=== PATIENT | female | born 1990 | race Caucasian/White ===

== ENCOUNTER 2022-01-26 10:40 | Emergency (ER) | payer OTHER, SELFPAY ==
[2022-01-26 11:05] VITALS: BP 128/79; PULSE 100; PULSE 106; RESP 16; TEMP 37.3; O2SAT 96; O2SAT 98; BMI 21.9
--- NOTE | 2022-01-26 11:10 | ED.OVERDOSE ---
HPI - Overdose General Chief Complaint: Overdose Stated Complaint: OD,NARCAN GIVEN W/GOOD RESULT PER EMS Time Seen by Provider: 01/26/22 11:00 Source: EMS Mode of arrival: EMS Limitations: no limitations History of Present Illness HPI Narrative: 31-year-old female who endorses heroin and crack use presents for a heroin overdose. The patient was found unresponsive outside on the sidewalk with a needle in her arm, patient got to of Narcan by EMS. Patient endorses using 2 bags of heroin a day crack cocaine. States her right hip hurts, and she has hip necrosis that she was diagnosed with last year but she has not seen orthopedics yet. States her whole body hurts. Patient states she would like to go to detox. Patient denies suicidal ideation, homicidal ideation, or hallucinations. Patient states she was doing heroin and then woke up ear. Denies chest pain, shortness of breath, fevers, nausea, vomiting, diarrhea, abdominal pain, dizziness, lightheadedness. Related Data Allergies Allergy/AdvReac Type Severity Reaction Status Date / Time Penicillins [PCN] Allergy Mild HIVES Verified 01/26/22 11:04 amoxicillin [AMOXICILLIN] Allergy Unknown HIVES Verified 01/26/22 11:04 bee pollen [BEE STINGS] Allergy Unknown SWELLING Verified 01/26/22 11:04 bismuth subsalicylate Allergy Unknown VOMITTING Verified 01/26/22 11:04 [From PEPTO-BISMOL] Review of Systems Constitutional: Constitutional: Reports body ache(s), Denies chills, Denies fatigue, Denies fever(s), Denies malaise and Denies weakness Eyes: Eyes: Denies diplopia ENT: Denies otalgia, Denies neck pain and Denies sore throat Cardiovascular: Cardiovascular: Denies chest pain, Denies syncope, Denies leg edema, Denies lightheadedness, Reports Loss of Consciousness, Denies palpitations and Denies dyspnea Respiratory: Respiratory: Denies chest congestion, Denies cough and Denies dyspnea Gastrointestinal: Gastrointestinal: Denies abdominal pain, Denies hematochezia, Denies constipation, Denies diarrhea, Denies nausea and Denies vomiting Genitourinary: Genitourinary: Reports no additional female genitourinary complaints Musculoskeletal: Musculoskeletal: Reports myalgias and Denies neck pain Neurologic: Denies confusion, Denies syncope and Denies weakness Psychiatric: Psychiatric: Denies anxiety, Denies confusion, Denies depression, Denies auditory hallucinations, Denies visual hallucinations, Denies hallucinations, Denies homicidal ideation and Denies suicidal ideation Endocrine: Endocrine: Denies fatigue and Denies palpitations [facility] Social History Social History Advance Directives: No Advance Directives Information Provided: Yes Physical Exam Vital Signs: Vital Signs: Last Vital Signs Temp 99.2 F 01/26/22 11:05 Pulse 106 H 01/26/22 11:05 Resp 16 01/26/22 11:05 BP 128/79 01/26/22 11:05 Pulse Ox 96 01/26/22 11:05 O2 Del Method 01/26/22 11:05 BMI result Body Mass Index 21.9 Const: General: No confusion Nutritional Appearance: well nourished Orientation/consciousness: No confusion Limitations: no limitations HEENT: Head: Yes normal to inspection, Yes No palpable skull fracture present, Yes normocephalic and Yes atraumatic Ears: hearing grossly normal bilaterally General nose exam: Normal external nose present Face and sinus: Yes normal facial exam Mouth: Normal oral and palatal mucosa present Throat: Yes posterior oropharynx normal Eyes: Conjunctivae: conjunctivae normal Pupils: Equal, round and reactive pupils present EOM: EOMs intact bilaterally Neck: Neck: Yes full ROM, Yes no lymphadenopathy and Yes supple Resp: Effort & Inspection: normal respiratory effort and able to speak in complete sentences Auscultation: clear to auscultation bilaterally, no crackles, no rales, no rhonchi and no wheezes Cardio: Rate: regular rate Rhythm: regular rhythm Heart sounds: S1 normal heart sound present and S2 normal heart sound present GI: Inspection: Yes normal to inspection Palpation (GI): Soft to palpation, nontender, no guarding and not rigid Percussion: Yes normal to percussion Auscultation: normal bowel sounds Skin: General skin exam: no rashes or lesions noted Neuro: General: No confusion Cranial nerves: Yes Equal, round and reactive pupils present Extrem: General: Yes normal to inspection and Yes full ROM Psych: Appearance: disheveled Speech and movement: Slurred speech present Affect: Depressed mood present and Irritable affect present Attitude: cooperative Thought process: Normal thought process present Thought content: suicidality, no homicidality, no hallucinations and No Depressive thoughts present Course Course Course Narrative: 31-year-old female presents for overdose on heroin, patient was found outside unresponsive, was given Narcan and revived. Heart rate 106, vitals otherwise stable. Patient does endorse body aches. States her right it hip hurts but refuses x-ray because patient wants to go to rehab, will get labs, urine drug screen, COVID, put consult in to care team for SUDE Reevaluation(s) Reevaluation #1: Go, care team, tells me patient is interested in detox, he will contact the facility and see if laboratory testing is needed prior to admission to detox facility Reevaluation #2: Go has found her placement at [facility] in [place], [place] Discharge Plan Discharge Clinical Impression: Drug overdose, Opioid abuse Patient Disposition: Xfer Inpatient Rehab Fac Transfer Details: [place], [place] Interventions: ED Discharge Assessment Last Done: 01/26/22 15:23 Discharge Date/Time: 01/26/22 15:24
--- NOTE | 2022-01-26 11:55 | PC.NURSE ---
Go from [facility] speaking to pt at this time. Pt interested in detox, Go to inquire with [facility]. Pt reports using heroin and crack daily. Denies ETOH use
--- NOTE | 2022-01-26 11:56 | PC.NURSE ---
Refusing blood work at this time, Go will inquire if [facility] will accept without
--- NOTE | 2022-01-26 12:33 | MHC.RECOVSUP ---
Addendum entered by Go Palacio, [facility] 01/26/22 14:57: Jason reports they do not have staffing to accommodate this patient. Richard reports they cannot take patient until tomorrow. Patient accepted at [facility]. Transportation via Lyft. Original Note: Recovery Support note: Patient is a 31 year old Kiswahili speaking female who presented to [facility] after an accidental overdose. This customs entry writer met with patient to discuss substance use and treatment options. Patient reports this is her 6th overdose and that she uses heroin several days a week, about 4 bags at a time. Patient reports using $50 of crack cocaine daily. Patient denies alcohol use. Patient is not on Suboxone or methadone. Patient denies SI/HI/AH/VH. Patient reports interest in going to detox. Patient states she has been before and has found it to be helpful. This customs entry writer will assist patient in referring to ATS facilities.
--- NOTE | 2022-01-26 14:09 | PC.NURSE ---
Pt continues to refuse vitals and labs at this time, very dismissive with this RN
[2022-01-26] MEDS: Lidocaine 4 % Patch ADH..PATCH 1 PATCH TRANSDERMA (14:57)
== END 2022-01-26 15:24 ==
PROVIDERS: Emergency Provider Emergency Medicine Emergency Medical Services
DX: T40.1X1A Poisoning by heroin, accidental (unintentional), initial encounter (principal); T40.5X1A Poisoning by cocaine, accidental (unintentional), initial encounter; R40.4 Transient alteration of awareness; Y92.480 Sidewalk as the place of occurrence of the external cause; F11.10 Opioid abuse, uncomplicated
CPT/HCPCS: 99282; 99285

== ENCOUNTER 2023-04-05 06:57 | Emergency (ER) | payer OTHER, SELFPAY ==
[2023-04-05] VITALS (7 sets, daily range): BP systolic 90–125; BP diastolic 51–85; PULSE 64–91; RESP 16–19; TEMP 36.4–36.9; O2SAT 98–100; BMI 25.0
--- NOTE | ~2023-04-05 | XR_ITS ---
EXAMINATION: XR HIP, RIGHT CLINICAL INFORMATION: Right hip pain with necrosis of the hip history COMPARISON: None available. TECHNIQUE: Two views of the right hip. FINDINGS: There is destruction and marked sclerosis of the right femoral head. There is marked sclerosis of the right acetabulum and adjacent lower right ilium. There is obliteration of the right hip joint space. A significant portion of the right ilium is obscured by overlying bowel contents. The sacroiliac joints appear within normal limits. The left hip and pubic symphysis are within normal limits. 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 MRI scan could be obtained for further evaluation, if not already performed.
--- NOTE | 2023-04-05 08:12 | ED.GENADULT ---
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 Patient is lying on her right side she is moving the hip normally she does have a cane at the site of the bed. She states she has this osteonecrosis but never had surgery for the hip states she is followed at [facility] she denies any falls or injuries she is requesting breakfast. Related Data Allergies Allergy/AdvReac Type Severity Reaction Status Date / Time Penicillins [PCN] Allergy Mild HIVES Verified 01/26/22 11:04 amoxicillin [AMOXICILLIN] Allergy Unknown HIVES Verified 01/26/22 11:04 bee pollen [BEE STINGS] Allergy Unknown SWELLING Verified 01/26/22 11:04 bismuth subsalicylate Allergy Unknown VOMITTING Verified 01/26/22 11:04 [From PEPTO-BISMOL] Review of Systems Review of Systems: Review of systems: General: Patient denies any fever chills recent illness or falls Musculoskeletal: Denies back pain or body aches or other injuries HEENT: denies headache, runny nose, ear pain Respiratory: denies shortness of breath, cough Cardiovascular: no chest pain or palpitations : denies dysuria, frequency Abdomen: no nausea vomiting denies abdominal pain Extremities: no swelling, right hip pain Skin: no diaphoresis Yes all other systems are reviewed and are negative PMFSH Social History Social History Alcohol intake: never Smoked in Last 30 Days: Yes Use of substances other than those prescribed or required for medical reasons: Yes Substance Use Type: Crack/Cocaine and Opiates Substance Use Frequency: Daily Last Used Substance: Days (ago) Any prior treatment program specific to substance use: Yes Advance Directives: No Advance Directives Information Provided: No Physical Exam ED Vital Signs: Vital Signs - 24 hr 04/05/23 07:09 04/05/23 09:39 Temperature 97.8 F 98.5 F Pulse Rate 91 76 Respiratory Rate 18 16 Blood Pressure 107/70 117/64 Pulse Oximetry 100 98 Oxygen Delivery Method Room Air Room Air BMI result Body Mass Index 25.0 General: Well-appearing well-nourished in no signs of distress HEENT: Normocephalic atraumatic Neck: No signs of JVD, no masses no tenderness or lymphadenopathy Cardiovascular: Regular rate and rhythm Respiratory: Clear to auscultation bilaterally Abdomen: Soft nontender no masses Extremities: Normal pedal pulses no signs of edema pain out of proportion to exam jumping and moving very quickly Skin: Dry warm no rashes Back: No tenderness full ROM Course Course Course Narrative: Xr is concerning for arthritis of the hip. She appears to be unreliable and has failed to follow up in the past. I spoke with Orthopedics Dr. Mayer about seeing the patient. The PA for orthopedics were also consulted. Matias Lewis from Orthopedics consulted and states the patient will need outpatient follow up. I did advocate for the patient with Orthopedics as she has been lost to follow up in the past and likely would benefit from close follow up if not admission. [id number] Patient is medically cleared at this time I will have detox evaluation. Medications Administered Discontinued Medications Generic Name Dose Route Start Last Admin Trade Name Freq PRN Reason Stop Dose Admin Acetaminophen 650 mg 04/05/23 08:43 04/05/23 09:07 Acetaminophen 325 Mg Tablet PO 04/05/23 08:44 650 mg ONCE ONE Administration Ketorolac Tromethamine 15 mg 04/05/23 08:43 04/05/23 09:08 Ketorolac Tromethamine 30 Mg/Ml Vial IM 04/05/23 08:44 15 mg ONCE ONE Administration Medical Decision Making Medical Decision Making [facility] Narrative: Concern for hip pain strain necrosis I will send for XR given tylenol and toradol Differential Diagnosis Differential Diagnoses: The differential diagnosis associated with the presentation includes If strain drug-seeking homelessness osteonecrosis of the hip hip fracture Independent Interpretation I performed an independent interpretation of an: Plain X-Ray Interpretation: osteoarthritis of the hip Radiology Impression Discussion of test interpretation with radiology: I have reviewed the radiologist's reading. External Record Review External record reviewed: Inpatient record 1 previous visit to the ED for overdose over a year ago. Discharge Plan Discharge Clinical Impression: Acute pain of right hip, Osteoarthritis Patient Disposition: Home, Self-Care Instructions: Arthralgia (ED), Hip Pain (ED) Additional Instructions: You were seen for hip pain. You had a XR which Please call to follow up with Orthopedics. Referrals: Frantz Rader MD [Physician] - (Please call to follow up about your hip pain.)
[2023-04-05] MEDS: Acetaminophen 325 MG TABLET 650 MG PO (09:07)
[2023-04-05] MEDS: Ketorolac Tromethamine 30 MG/ML VIAL 15 MG IM (09:08)
[2023-04-05] MEDS: Haloperidol Lactate 5 MG/ML VIAL IM (11:00)
[2023-04-05] MEDS: HYDROmorphone HCl 2 MG TABLET 1 MG PO (11:00)
--- NOTE | 2023-04-05 11:42 | MHC.EDTECH ---
Patient given a urine cup to provide urine sample, and she is aware this is needed but states she doesn't have to go at this time. CUCA Venegas aware.
--- NOTE | 2023-04-05 12:06 | PC.NURSE ---
pt visually diaphoretic on her forehead, this RN attempted to complete COWS assessment, pt refused to answer any questions, take vitals or provide a urine sample. just leave me alone, i'm not dong that . pt reports last drug use was yesterday.
--- NOTE | 2023-04-05 14:45 | PC.NURSE ---
md shayy baron notified COWS 8- no interventions ordered at this time.vss
--- NOTE | 2023-04-05 15:14 | PC.NURSE ---
per pt req contacted reading recovery teacher- nameprovided by adrianne magana pt req info about detox program.
--- NOTE | 2023-04-05 16:08 | MHC.RECOVRN ---
This administrative underwriter met with patient, patient requesting detox bed. Patient had reported MTD use, patient visibly diaphoretic, COWS 8, MTD has been ordered for withdrawal. This administrative underwriter reviewed with patient, detox bedsearch exhausted, no female detox beds [facility]. [facility] do not accept patients insurance. This administrative underwriter reviewed MTD dose, to follow up from the community with MTD maintenance and [facility] [place]. Patient states I'm going to kill myself . This administrative underwriter let ED RN and Provider know patients status.
--- NOTE | 2023-04-05 16:10 | PC.NURSE ---
attempt to admin methadone- pt talking w care team and reported si- rn is working on securing belongings/changeover behav health clothes/safety checks initiating. pt on commode to give urine spec
[2023-04-05] MEDS: methADONE HCl 20 MG/2 ML ORAL.CONC 30 MG PO (16:37)
--- NOTE | 2023-04-05 16:47 | PC.NURSE ---
pt fully clothed in behavoral outfit. cords out of room. belongings secured by tech. charge fariha aware limitation to movement r/t right hip issues so not pod able. +CMS. talking. tired but conversational. si no plan though says she is not fully sure so pt is elevated to moderate from low risk by rn decision. 1:[address] see [place]ot. provider notified
[2023-04-05 16:51] LABS: Appearance Urine Clear; Color Urine Dark Yellow; Glucose Urine UA Negative (Negative); Leukocyte Esterase Urine Trace (Negative); Nitrite Urine Negative (Negative); UMIC TRIGGER UACC YES; Urine Blood Negative (Negative); Urine Ketones Trace mg/dL (Negative); Urine Protein Negative (Neg-Trace)
[2023-04-05 16:52] LABS: Amphetamine Screen Urine Not Detected (Not Detect); Barbiturates, Urine Not Detected (Not Detect); Benzodiazepines Screen Urine Not Detected (Not Detect); Cannabinoid Screen Urine Not Detected (Not Detect); Cocaine Screen Urine POSITIVE (Not Detect); Fentanyl, urine POSITIVE (Not Detect); Opiate Screen Urine POSITIVE (Not Detect); Phencyclidine Screen Urine Not Detected (Not Detect)
[2023-04-05 16:54] LABS: Bacteria Urine None Seen (None Seen); Hyaline Casts Urine 0-2 /LPF (0-2); RBC Urine 0-2 /HPF (0-2); Squamous Epithelial Cell Urine 0-2 /HPF (0-2); WBC Urine 0-5 /HPF (0-5)
--- NOTE | 2023-04-05 19:32 | PC.NURSE ---
resting in bed sleeping with no distress- pt wishes to remain sleeping- 1:1 with pt. safety checks continue. +[facility].
--- NOTE | 2023-04-05 21:30 | PC.NURSE ---
This movie writer assumed care of this Pt at 2100. Pt appears to be sleeping at this time, awakens with verbal command, reports chronic right hip pain. States I still feel the same mentally, I'm homeless, I can't walk , reports SI with plan to jump in front of car. 1:1 sitter at bedside. VSS.
[2023-04-06 01:09] VITALS: BP 110/65; PULSE 76; RESP 14; O2SAT 96
--- NOTE | 2023-04-06 06:16 | PC.NURSE ---
Pt appears to be sleeping at this time. Awakens with verbal command. Sitter at bedside.
--- NOTE | 2023-04-06 07:25 | ECG_ITS ---
Test Reason : MEDICAL CLEARANCE Blood Pressure : / mmHG Vent. Rate : 080 BPM Atrial Rate : 080 BPM P-R Int : 162 ms QRS Dur : 088 ms QT Int : 400 ms P-R-T Axes : 068 095 020 degrees QTc Int : 461 ms Normal sinus rhythm Rightward axis T wave abnormality, consider anterior ischemia Prolonged QT Abnormal ECG No previous ECGs available Referred By: Buffy Keyes Electronically Signed By:ZARINA ZHENG
[2023-04-06 09:57] LABS: Basophils Absolute Auto 0.1 X10*3/uL (0.0-0.2); Basophils Percent Auto 1.5 % (0-2); Eosinophils Absolute Auto 0.5 X10*3/uL (0.0-0.4); Eosinophils Percent Auto 11.6 % (0-4); Hematocrit 42.8 % (37.0-47.0); Hemoglobin 13.9 g/dl (12.0-16.0); Imm Gran Abs Auto 0.01 X10*3/uL (0.00-0.03); Imm Gran Pct Auto 0.2 % (0.0-0.4); Lymphocytes Absolute Auto 2.3 X10*3/uL (1.2-4.9); Lymphocytes Percent Auto 48.4 % (20-40); MANUAL DIFF FLAG SCAN; Mean Corpuscular HGB Conc 32.5 g/dl (31.0-35.0); Mean Corpuscular Hemoglobin 26.8 pg (27.0-33.0); Mean Corpuscular Volume 82.5 fL (80.0-98.0); Mean Platelet Volume 10.4 fL (9.4-12.3); Monocytes Absolute Auto 0.5 X10*3/uL (0.1-1.2); Monocytes Percent Auto 11.1 % (2-11); Neutrophils Absolute Auto 1.3 x10*3/uL (2.0-8.3); Neutrophils Percent Auto 27.2 % (45-73); Platelet Count 220 X10*3/uL (160-400); Red Blood Count 5.19 X10*6/uL (4.20-5.50); Red Cell Distribution Width 14.6 % (11.0-16.0); SCAN SMEAR FLAG 1; White Blood Count 4.7 X10*3/uL (4.8-10.8)
--- NOTE | 2023-04-06 10:02 | PC.NURSE ---
assumed care of pt at 0700. pt resting quietly on stretcher in no apparent distress. pt provided with breakfast, hardly ate. pt reporting 8/10 R hip pain, sts unable to ambulate. not pod appropriate. commode at bedside. pt endorses SI, 1:1 sitter for pt safety. when care team went to speak with pt, pt reported her jaw got stuck and she was unable to speak. pt then yawned with this RN and CUCA Downs went to check in on pt. pt able to move jaw appropriately. all pt needs met annelise. call zelaya within pt reach.
[2023-04-06 10:06] LABS: Anion Gap 11 (12-20); Blood Urea Nitrogen 11 mg/dL (9-16); Calcium 9.6 mg/dL (8.4-10.2); Carbon Dioxide 33 mmol/L (22-29); Chloride 102 mmol/L (96-108); Creatinine Clr Calc Pharmacy 111.2; Estimated Glomerular Filt Rate > 60; Glucose Random 80 mg/dL (60-115); Potassium 3.4 mmol/L (3.3-5.1); Sodium 143 mmol/L (135-145)
[2023-04-06 10:08] LABS: Acetaminophen LAB < 17 mcg/mL (<30); Ethanol < 10 mg/dL; Salicylate < 5.0 mg/dL (15-30)
[2023-04-06 10:22] LABS: SLIDE REVIEW VERIFIED
[2023-04-06 10:37] VITALS: BP 114/67; PULSE 89; RESP 16; TEMP 37; O2SAT 98
[2023-04-06 11:19] VITALS: PULSE 88
--- NOTE | 2023-04-06 11:49 | PHA.MEDREC ---
Pharmacy Consult ? Medication Reconciliation Pharmacy has completed the medication reconciliation.
== END 2023-04-06 12:35 | disposition home or self-care (01) ==
PROVIDERS: Physician Assistant; Emergency Provider Student in an Organized Health Care Education/Training Program
DX: M16.11 Unilateral primary osteoarthritis, right hip (principal); M25.551 Pain in right hip; R94.31 Abnormal electrocardiogram [ECG] [EKG]; Z79.899 Other long term (current) drug therapy
CPT/HCPCS: 36415; 73502; 80048; 80143; 80179; 80307; 81001; 85025; 93005; 96372; 99285; J1885; S9485

== ENCOUNTER 2023-04-06 13:13 | Emergency (ER) | payer OTHER, SELFPAY ==
[2023-04-06 13:17] VITALS: BP 130/89; PULSE 93; RESP 18; TEMP 36.3; O2SAT 97; BMI 20.1
--- NOTE | 2023-04-06 13:31 | ED_ITS ---
HPI - General Adult General Chief complaint: ETOH/Substance Use Stated complaint: detox Time Seen by Provider: 04/06/23 13:25 Source: patient Mode of arrival: ambulatory Limitations: no limitations History of Present Illness HPI narrative: This is a 32-year-old female who was just discharged from our facility presenting requesting a 1 time dose of methadone Prior to going to [facility] [place]. Patient was just cleared by the care team. Not suicidal or homicidal. Denies visual, auditory and tactile hallucinations. Patient denies medical complaints at this time. Nursing stated patient was dislocating her jaw on purpose patient denies this i did not whitness this. Related Data Home Medications Medication Instructions Recorded Confirmed No Known Home Meds 04/06/23 04/06/23 Allergies Allergy/AdvReac Type Severity Reaction Status Date / Time Penicillins [PCN] Allergy Mild HIVES Verified 01/26/22 11:04 amoxicillin [AMOXICILLIN] Allergy Unknown HIVES Verified 01/26/22 11:04 bee pollen [BEE STINGS] Allergy Unknown SWELLING Verified 01/26/22 11:04 bismuth subsalicylate Allergy Unknown VOMITTING Verified 01/26/22 11:04 [From PEPTO-BISMOL] Review of Systems Review of Systems: Constitutional : No Fever, No Chills ENT/Mouth : No sore throat, No Rhinorrhea Eyes: No Eye Pain, No Swelling, No Redness Cardiovascular : No Chest Pain, No SOB Respiratory : No Cough, No Sputum Gastrointestinal : No Nausea, No Vomiting, No Diarrhea, No abdominal Pain Genitourinary : No Dysuria, No Hematuria Musculoskeletal : No joint pain, No Myalgias, No Joint Swelling Skin : No Skin Lesions, No rash Neuro : No Weakness, No Numbness Psych : No Anxiety, No Depression, No SI/HI/AH/VH Heme/Lymph: No Bruising, No Bleeding Endocrine : No Polyuria, No Polydipsia All other systems reviewed and are negative Yes all other systems are reviewed and are negative [facility] Past Medical History Attestation statement: The following information was validated with the patient. Source: old records reviewed and nursing notes reviewed Social History Social History Alcohol intake: never Substance Use Type: Crack/Cocaine and Opiates Physical Exam ED Vital Signs: Vital Signs - 24 hr 04/06/23 13:17 Temperature 97.3 F Pulse Rate 93 Respiratory Rate 18 Blood Pressure 130/89 Pulse Oximetry 97 Oxygen Delivery Method Room Air BMI result Body Mass Index 20.1 vss Appearance: Alert.? Oriented X3.? No acute distress.? Head: Normocephalic, atraumatic, no step-offs or deformities Eyes: Pupils equal, round and reactive to light.? CVS: Normal heart rate and rhythm.? Pulses normal.? Respiratory: No respiratory distress.? Breath sounds normal.? Abdomen: Soft and nontender.? Skin: Skin warm and dry.? Normal skin color.? Normal skin turgor.? Extremities: No lower extremity edema.? No calf ttp. 5/5 strength to bilateral upper and lower extremities Neuro: Oriented X 3.? No motor deficit.? No sensory deficit. CN 2-12 intact Course Reevaluation(s) Reevaluation #1: patient will go to [facility]. Educated patient on diagnosis and treatment plan, answered all question, patient verbalizes understanding. At this time patient will be discharged home, advised to return with new or worseni ng symptoms. Educated on worrisome signs and symptoms and when to return. At this time I feel comfortable discharge home. Time: 13:39 Medications Administered Discontinued Medications Generic Name Dose Route Start Last Admin Trade Name Freq PRN Reason Stop Dose Admin Methadone HCl 30 mg 04/06/23 13:35 04/06/23 13:44 Methadone Hcl 20 Mg/2 Ml Oral.Conc PO 04/06/23 13:36 30 mg ONCE ONE Administration Medical Decision Making Medical Decision Making [facility] Narrative: 1333 32-year-old female presents with hopes to obtain 1 dose of methadone prior to [facility] PE benign Plan will give 1 time dose of methadone. Patient to be discharged and will go to [facility]. This is likely substance abuse currently on methadone. Unlikely suicidal or homicidal ideation. I do not appreciate jaw dislocation or EPS. Differential Diagnosis Differential Diagnoses: The differential diagnosis associated with the presentation includes This is likely substance abuse currently on methadone. Unlikely suicidal or homicidal ideation. I do not appreciate jaw dislocation or EPS Admission/Observation Consideration of admission/observation: Escalation of care including admission/observation considered unlikely Critical Care Time Critical Care Time Critical Care Time: No Discharge Plan Discharge Clinical Impression: Polysubstance abuse Patient Disposition: Home, Self-Care Instructions: Polysubstance Abuse (ED) Additional Instructions: Take your medications as prescribed. If you were prescribed antibiotics today, it is important that you take your medication to their entirety, do not skip any doses, do not finish them early. Follow-up with your primary care provider this week. Return to the emergency department with new or worsening symptoms. Such as fevers, chills, chest pain, shortness of breath, nausea, vomiting, dizziness, headache, vision changes, lethargy In case of emergency call 911 Prescriptions: No Action No Known Home Meds Referrals: Physician,Unknown J [Primary Care Provider] - 2 days Stand Alone Forms: Work/School Release Interventions: ED Discharge Assessment Last Done: 04/06/23 13:48 Discharge Date/Time: 04/06/23 14:08
[2023-04-06] MEDS: methADONE HCl 20 MG/2 ML ORAL.CONC 30 MG PO (13:44)
--- NOTE | 2023-04-06 13:46 | PC.NURSE ---
pt medicated per MAR, resting quietly, jaw in place, no longer posturing neck, not diaphoretic. pt pending Lyft transport booked by CARE team.
== END 2023-04-06 14:08 | disposition home or self-care (01) ==
PROVIDERS: Emergency Provider Student in an Organized Health Care Education/Training Program
DX: F19.10 Other psychoactive substance abuse, uncomplicated (principal); F11.20 Opioid dependence, uncomplicated
CPT/HCPCS: 99282; 99283

== ENCOUNTER 2023-04-06 14:53 | Emergency (ER) | payer OTHER, SELFPAY ==
--- NOTE | 2023-04-06 15:20 | ED_ITS ---
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 The patient was seen by me cleared as far as a substance use disorder as well as the hip pain. She needs to follow up outpatient. Patient then started stating that her jaw was dislocating was evaluated by 1 of my colleagues who deemed patient still safe to go home. 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 Patient was given Benadryl by EMS patient has no more symptoms at this time for Related Data Home Medications Medication Instructions Recorded Confirmed No Known Home Meds 04/06/23 04/06/23 Allergies Allergy/AdvReac Type Severity Reaction Status Date / Time Penicillins [PCN] Allergy Mild HIVES Verified 01/26/22 11:04 amoxicillin [AMOXICILLIN] Allergy Unknown HIVES Verified 01/26/22 11:04 bee pollen [BEE STINGS] Allergy Unknown SWELLING Verified 01/26/22 11:04 bismuth subsalicylate Allergy Unknown VOMITTING Verified 01/26/22 11:04 [From PEPTO-BISMOL] Review of Systems Review of Systems: Review of systems: General: Patient denies any fever chills recent illness or falls Musculoskeletal: Denies back pain or body aches or other injuries HEENT: denies headache, runny nose, ear pain Respiratory: denies shortness of breath, cough Cardiovascular: no chest pain or palpitations : denies dysuria, frequency Abdomen: no nausea vomiting denies abdominal pain Extremities: no swelling, no pain Skin: no diaphoresis Yes all other systems are reviewed and are negative [facility] Social History Social History Alcohol intake: never Substance Use Type: Crack/Cocaine and Opiates Physical Exam ED Neurological exam: CN II- XII tested. Patient is alert and oriented to person place and time. Patient has no dysphagia or dysarthia, denies good vision in all four vision perez no nystagmus on exam, good strength to upper and lower extremities with normal reflexes to brachioradialis, wrist, patella and achilles.? Negative romberg, good finger to nose and heel to khan.?? General: Well-appearing well-nourished in no signs of distress HEENT: Normocephalic atraumatic? Neck: No signs of JVD, no masses no tenderness or lymphadenopathy Cardiovascular: Regular rate and rhythm Respiratory: Clear to auscultation bilaterally Abdomen: Soft nontender no masses Extremities: Normal pedal pulses no signs of edema right hip is cooling pan tender but she is laying on that side Skin: Dry warm no rashes Back: No tenderness full ROM Course Course Course Narrative: I spoke with [facility] the banquet kitchen supervisor Thong. He did not think the patient had been there we were able to confirm that it was the correct place. I will send back to the facility as she remains asymptomatic. Medical Decision Making Medical Decision Making [facility] Narrative: Patient with strange behaviors including jaw opening in stating that her jaw is dislocated patient is not doing any of that this time patient wants to go back to [facility] I will call over Differential Diagnosis Differential Diagnoses: The differential diagnosis associated with the presentation includes Differential diagnosis includes but is not limited to Concern for extra pyramidal symptoms related to medication behavioral issues chronic hip pain Discharge Plan Discharge Clinical Impression: Strange and inexplicable behavior Patient Disposition: Home, Self-Care Instructions: Polysubstance Abuse (ED) Additional Instructions: Your seen again today for strange behavior involving opening her mouth. You have always been able to to self close her mouth your given Benadryl by EMS. Your given Benadryl by EMS his symptoms have resolved. If you have any other concerns please return to the emergency room. Prescriptions: No Action No Known Home Meds
[2023-04-06 15:29] VITALS: BP 117/73; PULSE 73; RESP 14; TEMP 36.1; O2SAT 98; BMI 24.6
== END 2023-04-06 15:56 | disposition home or self-care (01) ==
LOC: HO.ED 15:57
PROVIDERS: Emergency Provider Student in an Organized Health Care Education/Training Program
DX: R46.2 Strange and inexplicable behavior (principal); F19.10 Other psychoactive substance abuse, uncomplicated
CPT/HCPCS: 99282; 99284

== ENCOUNTER 2023-07-10 23:17 | Emergency (ER) | payer MEDICAID, SELFPAY ==
--- NOTE | ~2023-07-10 | XR_ITS ---
EXAMINATION: XR CHEST CLINICAL INFORMATION: Overdose COMPARISON: None available. TECHNIQUE: Frontal view of the chest was obtained. FINDINGS: Bilateral low lung volumes. Slight accentuation of pulmonary vasculature. No pneumothorax. Trachea is midline. Cardiac mediastinal silhouette is not enlarged. No large pleural effusion. Osseous structures are intact. Soft tissues are unremarkable. XR/XR chest 1V IMPRESSION: 1. Bilateral low lung volumes. 2. Slight accentuation of pulmonary vasculature.
[2023-07-10 23:22] VITALS: BP 119/82; BP 128/84; PULSE 100; PULSE 108; RESP 14; TEMP 36.8; O2SAT 98; BMI 26.1
--- NOTE | 2023-07-10 23:35 | ECG_ITS ---
Test Reason : OVERDOSE Blood Pressure : / mmHG Vent. Rate : 094 BPM Atrial Rate : 094 BPM P-R Int : 150 ms QRS Dur : 088 ms QT Int : 378 ms P-R-T Axes : 056 090 025 degrees QTc Int : 472 ms Normal sinus rhythm Rightward axis Borderline ECG When compared to the previous EKG of No significant changes seen Referred By: Generic ED Physician Electronically Signed By:João Guerin
--- NOTE | 2023-07-10 23:46 | MHC.EDTECH ---
Pt refused CO2 monitoring. Pt states she will not put in her nose and took it out.
--- NOTE | 2023-07-10 23:48 | PC.NURSE ---
tool distributor to bedside to assist with Capnography set up as EDTs report despite a 2nd box being utilized the pt's capnography readings were still not showing. Despite all attempts and efforts by staff, capnography still not capturing. While RN at bedside attempting to work with monitor the pt could be heard saying well if it's not going to work I'm not going to keep it on followed by they already tried all that specifically referencing this RN's troubleshooting efforts.
--- NOTE | 2023-07-11 00:41 | ED.OVERDOSE ---
HPI - Overdose General Chief Complaint: Overdose Stated Complaint: heroin OD w/ 8mg NArcan Time Seen by Provider: 07/11/23 00:37 Source: patient and EMS Mode of arrival: EMS Limitations: no limitations History of Present Illness HPI Narrative: Patient comes to the emergency room after being found unresponsive by bystanders. According to the paramedics, patient was found down on the sidewalk by [place] police department. Patient was found to be cyanotic. Patient was given 8 mg of intranasal Narcan, ventilated via Ambu bagged by police department. When EMS arrived, patient was already awake alert and oriented x4. Same on arrival to the ED. Patient states that she was recently released from [facility] 5 days ago, today she snorted 1 bag of heroin and accidentally overdose. Patient denies SI or HI. Patient is admitted this was an accident. Patient states that she feels well, denies any headache or neck pain. Patient denies any injuries. Related Data Home Medications Medication Instructions Recorded Confirmed No Known Home Meds 04/06/23 04/06/23 Allergies Allergy/AdvReac Type Severity Reaction Status Date / Time Penicillins [PCN] Allergy Mild HIVES Verified 01/26/22 11:04 amoxicillin [AMOXICILLIN] Allergy Unknown HIVES Verified 01/26/22 11:04 bee pollen [BEE STINGS] Allergy Unknown SWELLING Verified 01/26/22 11:04 bismuth subsalicylate Allergy Unknown VOMITTING Verified 01/26/22 11:04 [From PEPTO-BISMOL] Review of Systems Review of Systems: Constitutional : No Weight loss, No Fever, No Chills, No Night Sweats, No Fatigue, No Malaise ENT/Mouth : No Hearing loss, No Ear Pain, No Nasal Congestion, No Sinus Pain, No Hoarseness, No sore throat, No Rhinorrhea, No Swallowing Difficulty Eyes: No Eye Pain, No Swelling, No Redness, No Foreign Body, No Discharge, No Vision Changes Cardiovascular : No Chest Pain, No SOB, No Dyspnea on Exertion, No Orthopnea, No Edema, No Palpitations Respiratory : No Cough, No Sputum, No Wheezing, No Smoke Exposure, No Dyspnea Gastrointestinal : No Nausea, No Vomiting, No Diarrhea, No Constipation, No abdominal Pain, No Hematochezia, No Melena Genitourinary : no irregular bleeding, No Dysuria, No Urinary Frequency, No Hematuria, No Urinary Incontinence, No Urgency, No Flank Pain, No Urinary Flow Changes, No Hesitancy Musculoskeletal : No joint pain, No Myalgias, No Joint Swelling Skin : No Skin Lesions, No rash Neuro : No Weakness, No Numbness, No Paresthesias, No Loss of Consciousness, No Dizziness, No Headache Psych : No Anxiety/Panic, No Depression, No SI/HI/AH/VH, admits to substance abuse, accidentally overdose with heroin Heme/Lymph: No Bruising, No Bleeding,No Lymphadenopathy Endocrine : No Polyuria, No Polydipsia, No Temperature Intolerance [facility] Past Medical History Medical History Overdose Polysubstance abuse Social History Social History Alcohol intake: never Substance Use Type: Crack/Cocaine Advance Directives: No Advance Directives Information Provided: No Physical Exam Vital Signs: Vital Signs: Last Vital Signs Temp 98.3 F 07/10/23 23:22 Pulse 100 07/10/23 23:22 Resp 14 07/10/23 23:22 BP 128/84 07/10/23 23:22 Pulse Ox 98 07/10/23 23:22 O2 Del Method Room Air 07/10/23 23:22 BMI result Body Mass Index 26.1 Const: Other: Appearance: Alert. Oriented X3. No acute distress. Eyes: Pupils equal, round and reactive to light. ENT: Pharynx normal. Neck: Normal inspection. Neck supple. No lymph nodes noted. No crepitus CVS: Normal heart rate and rhythm. Pulses normal. Normal S1 and S2 Respiratory: No respiratory distress. Breath sounds normal. No Wheezing. No rales Abdomen: Soft and nontender. No rigidity. No distention. Skin: Skin warm and dry. Normal skin color. Normal skin turgor. Extremities: No lower extremity edema. No Lacerations. No Rash Neuro: Oriented X 3. No motor deficit. No sensory deficit. Moving all extremities. No slurred speech. CN 2 through 12 grossly intact Psych: calm, cooperative, normal affect Course Course Course Narrative: -since arrival, patient has been awake, alert and oriented x4, normal vitals, oxygen saturation 98% on room air. -patient requesting to eat something. Patient asymptomatic Medical Decision Making Medical Decision Making MDM Narrative: -patient has spin the entire time awake, alert and oriented x4, no acute distress, eating sandwiches -patient's vital stable, oxygen saturation the high 90s constantly without desaturation. -patient declined care team/legal recovery specialist -patient given home Narcan upon discharge Differential Diagnosis Differential Diagnoses: The differential diagnosis associated with the presentation includes (Polysubstance abuse, alcohol abuse) Discharge Plan Discharge Clinical Impression: Drug overdose Patient Disposition: Home, Self-Care Instructions: Adult Overdose (ED) Additional Instructions: Please follow-up with your primary care physician tomorrow. If you have any worsening or new symptoms, please return to the emergency room or call 911 Prescriptions: No Action No Known Home Meds
[2023-07-11 02:17] VITALS: BP 100/59; PULSE 113; RESP 18; TEMP 37.9; O2SAT 99
--- NOTE | 2023-07-11 03:10 | PC.NURSE ---
this rn assisted pt in ambulation to restroom. urine collected and sent to lab. pt states walks with cane at home. pt walking with hospital cane. pt provided with snacks per lithopone charger okay to await discharge until am
[2023-07-11 03:11] LABS: UPreg QC Valid YES; Urine Pregnancy NEGATIVE (NEGATIVE)
[2023-07-11 03:21] LABS: Amphetamine Screen Urine Not Detected (Not Detect); Barbiturates, Urine Not Detected (Not Detect); Benzodiazepines Screen Urine Not Detected (Not Detect); Cannabinoid Screen Urine POSITIVE (Not Detect); Cocaine Screen Urine POSITIVE (Not Detect); Fentanyl, urine POSITIVE (Not Detect); Opiate Screen Urine POSITIVE (Not Detect); Phencyclidine Screen Urine Not Detected (Not Detect)
[2023-07-11 05:01] VITALS: BP 122/72; PULSE 116; RESP 16; TEMP 36.8; O2SAT 96
[2023-07-11] MEDS: Naloxone HCl Nasal TAKE HOME 4 MG SPRAY 8 MG NOSTRILALT (06:24)
--- NOTE | 2023-07-11 06:30 | PC.NURSE ---
pt ambulatory at discharge. pt states uses cane baseline states feels safe being discharged without cane. per md pt okay to be discharged. per tank charger pt safe for discharge. pt given take home narcan. pt ambulatory to decon for belongings. pt provided with discharge packet pt verbalized understanding of discharge plan
== END 2023-07-11 07:12 | disposition home or self-care (01) ==
PROVIDERS: Emergency Provider Emergency Medicine
DX: T40.1X1A Poisoning by heroin, accidental (unintentional), initial encounter (principal); Y92.89 Other specified places as the place of occurrence of the external cause; R40.4 Transient alteration of awareness; F19.10 Other psychoactive substance abuse, uncomplicated
CPT/HCPCS: 71045; 80307; 81025; 93005; 99285

== ENCOUNTER → 2023-07-10 23:35 | Outpatient (BNV) | payer MEDICAID, SELFPAY | PROVIDERS: Emergency Provider Emergency Medicine; Visit Provider Internal Medicine Cardiovascular Disease | DX: T50.7X Poisoning by, adverse effect of and underdosing of analeptics and opioid receptor antagonists (principal) | CPT/HCPCS: 93010 ==

== ENCOUNTER 2023-09-01 07:37 | Inpatient (IN) | payer OTHER, SELFPAY ==
--- NOTE | ~2023-09-01 | XR_ITS ---
EXAMINATION: XR HIP, RIGHT CLINICAL INFORMATION: Right hip pain COMPARISON: 04/05/2023 TECHNIQUE: Two views of the right hip. FINDINGS: End-stage right hip, with marked sclerosis and destruction of the right femoral head again observed. Acetabular protrusio again observed. No acute findings. Left hip intact as is the pelvis. XR/XR hip RT w PEL1V IMPRESSION: End-stage right hip. No substantial change.
--- NOTE | ~2023-09-01 | XR_ITS ---
EXAMINATION: XR KNEE, RIGHT CLINICAL INFORMATION: Right knee pain COMPARISON: None available. TECHNIQUE: Four views of the right knee. FINDINGS: Diffuse osteopenia but no fracture or destructive process. No joint effusion. Joint spaces appear well preserved. No erosions. XR/XR knee RT 4V IMPRESSION: Unremarkable study.
[2023-09-01 07:46] VITALS: BP 123/80; PULSE 74; PULSE 84; RESP 18; TEMP 36.6; O2SAT 100; O2SAT 99; BMI 22.7
--- NOTE | 2023-09-01 07:47 | ED.GENADULT ---
HPI - General Adult General Chief complaint: Psychiatric Symptoms Stated complaint: SI STATEMENTS,R LEG WOUND PAIN PER EMS Time Seen by Provider: 09/01/23 07:40 Source: patient and EMS Mode of arrival: EMS Limitations: no limitations History of Present Illness HPI narrative: This is a 32-year-old female history of opiate use disorder, hip necrosis presents with suicidal statements stating she was going to jump in front of a car in hopes to kill herself. Patient reports she is homeless and has a lot of life stressors. She reports substance use, opiates. Denies smoking, alcohol. Denies hallucinations. She reports that her right hip and knee have been hurting her and this has been ongoing for over a year and a half she has been told that she has right hip and knee necrosis however nothing has been done about it patient denies numbness, tingling, fevers, chills, chest pain, shortness breath, headache, vision changes, dizziness, blunt trauma. Related Data Home Medications Medication Instructions Recorded Confirmed No Known Home Meds 04/06/23 04/06/23 Allergies Allergy/AdvReac Type Severity Reaction Status Date / Time Penicillins [PCN] Allergy Mild HIVES Verified 01/26/22 11:04 amoxicillin [AMOXICILLIN] Allergy Unknown HIVES Verified 01/26/22 11:04 bee pollen [BEE STINGS] Allergy Unknown SWELLING Verified 01/26/22 11:04 bismuth subsalicylate Allergy Unknown VOMITTING Verified 01/26/22 11:04 [From PEPTO-BISMOL] Review of Systems Review of Systems: Constitutional : No Weight loss, No Fever, No Chills, No Fatigue, No Malaise ENT/Mouth : No sore throat, No Rhinorrhea Eyes: No Eye Pain, No Swelling, No Redness Cardiovascular : No Chest Pain, No SOB, No Dyspnea on Exertion, No Orthopnea, No Edema, No Palpitations Respiratory : No Cough, No Sputum, No Wheezing Gastrointestinal : No Nausea, No Vomiting, No Diarrhea, No Constipation, No abdominal Pain, No Hematochezia, No Melena Genitourinary : No Dysuria, No Urinary Frequency, No Hematuria, Musculoskeletal : No joint pain, No Myalgias, No Joint Swelling Skin : No Skin Lesions, No rash Neuro : No Weakness, No Numbness, No Dizziness, No Headache Psych : No Anxiety/Panic, No Depression All other systems reviewed and are negative Yes all other systems are reviewed and are negative [facility] Past Medical History Attestation statement: The following information was validated with the patient. Source: old records reviewed and nursing notes reviewed Medical History Overdose Polysubstance abuse Social History Social History Alcohol intake: unknown Substance Use Type: Crack/Cocaine, Heroin and Marijuana Advance Directives: No Healthcare Proxy: No Guardian: No Physical Exam ED Vital Signs: Vital Signs - 24 hr 09/01/23 07:46 Temperature 97.9 F Pulse Rate 84 Respiratory Rate 18 Blood Pressure 123/80 Pulse Oximetry 99 Oxygen Delivery Method Room Air BMI result Body Mass Index 22.7 vss Appearance: Alert.? Oriented X3.? No acute distress.? Head: Normocephalic, atraumatic, no step-offs or deformities Eyes: Pupils equal, round and reactive to light.? Neck: Normal inspection.? Neck supple.? CVS: Normal heart rate and rhythm.? Pulses normal.? Respiratory: No respiratory distress.? Breath sounds normal.? Abdomen: Soft and nontender.? Skin: Skin warm and dry.? Normal skin color.? Normal skin turgor.? Extremities: No lower extremity edema.? No calf ttp. 5/5 strength to bilateral upper and lower extremities + full range of motion to bilateral hips and knees, with slight discomfort with range of motion to right hip and right knee. Tenderness to palpation over the ASIS on the right and overlying the right patella. No overlying skin changes. Patient ambulating with a limp favoring left side. 2+ dorsalis pedis, anterior tibialis and posterior tibialis pulses equal bilateral. 2+ popliteal pulses Neuro: Oriented X 3.? No motor deficit.? No sensory deficit. CN 2-12 intact Course Reevaluation(s) Reevaluation #1: CBC no acute findings. Chemistry pending.. UA without infection. Urine toxicology positive for opiates, fentanyl, amphetamines, benzodiazepines, cocaine. X-ray of the right knee unremarkable. X-ray of right hip end-stage right hip with marked sclerosis and distraction of the right femoral head, no substantial change. These are not acute findings. Will give her orthopedic follow-up for when she is discharged. At this time patient to be placed into physician observation to allow more time to be evaluated by behavioral health team. At time observation started patient common cooperative no acute distress will continue to monitor Time: 10:13 Reevaluation #2: Patient will be admitted here. Time: 11:11 Medical Decision Making Medical Decision Making MDM Narrative: 32-year-old female presents with suicidal ideation with plan to jump in front of a car. Reports polysubstance abuse. Also complaining of right hip and knee pain. Physical exam significant for + full range of motion to bilateral hips and knees, with slight discomfort with range of motion to right hip and right knee. Tenderness to palpation over the ASIS on the right and overlying the right patella. No overlying skin changes. Patient ambulating with a limp favoring left side. 2+ dorsalis pedis, anterior tibialis and posterior tibialis pulses equal bilateral. 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 Unlikely septic joint, neurovascular compromise, arterial or venous occlusion. Suicidal ideation likely secondary to depression and or polysubstance abuse. Other differentials include bipolar disorder schizophrenia. Will rule out metabolic derangements, UTI Plan medical clearance evaluation by care team. I will order imaging on right hip and knee. 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 Unlikely septic joint, neurovascular compromise, arterial or venous occlusion. Suicidal ideation likely secondary to depression and or polysubstance abuse. Other differentials include bipolar disorder schizophrenia. Will rule out metabolic derangements, UTI Admission/Observation Consideration of admission/observation: Escalation of care including admission/observation considered Possible psych Lab Data [facility] Lab Attestation statement: I reviewed the patient's lab results. 09/01/23 09:44 09/01/23 09:44 Labs: Lab Results 09/01/23 09/01/23 Range/Units 08:00 09:44 WBC 5.1 (4.8-10.8) X10*3/uL RBC 4.75 (4.20-5.50) X10*6/uL Hgb 13.2 (12.0-16.0) g/dl Hct 39.3 (37.0-47.0) % MCV 82.7 (80.0-98.0) fL MCH 27.8 (27.0-33.0) pg MCHC 33.6 (31.0-35.0) g/dl RDW 13.7 (11.0-16.0) % Plt Count 266 (160-400) X10*3/uL MPV 9.6 (9.4-12.3) fL Immature Gran % (Auto) 0.2 (0.0-0.4) % Neut % (Auto) 63.5 (45-73) % Lymph % (Auto) 26.9 (20-40) % [place] % (Auto) 4.3 (2-11) % Eos % (Auto) 3.9 (0-4) % Baso % (Auto) 1.2 (0-2) % Lymph # (Auto) 1.4 (1.2-4.9) X10*3/uL [place] # (Auto) 0.2 (0.1-1.2) X10*3/uL Eos # (Auto) 0.2 (0.0-0.4) X10*3/uL Baso # (Auto) 0.1 (0.0-0.2) X10*3/uL Abs Immat Gran (auto) 0.01 (0.00-0.03) X10*3/uL Absolute Neuts (auto) 3.2 (2.0-8.3) x10*3/uL Absolute Nucleated RBC 0.000 (0.0-0.012) X10*3/uL Nucleated RBC % (auto) 0.0 (0.0-0.2) /100WBC Sodium 141 (135-145) mmol/L Potassium 3.5 (3.3-5.1) mmol/L Chloride 102 (96-108) mmol/L Carbon Dioxide 30 H (22-29) mmol/L Anion Gap 13 (12-20) BUN 12 (9-16) mg/dL Creatinine 0.61 (0.5-1.4) mg/dL Estim Creat Clear Calc 100.8 Estimated GFR > 60 Random Glucose 115 (60-115) mg/dL Calcium 9.3 (8.4-10.2) mg/dL Magnesium 2.0 (1.6-2.6) mg/dL Total Bilirubin 0.5 (0.0-1.0) mg/dL AST 14 (5-31) U/L ALT 11 (0-31) U/L Alkaline Phosphatase 85 (39-117) U/L Total Protein 7.5 (6.5-8.0) g/dL Albumin 4.0 (3.5-5.0) g/dL Urine Color Yellow Urine Appearance Clear Urine pH 6.0 (5.0-9.0) Ur Specific [place] 1.010 (1.005-1.025) Urine Protein Negative (Neg-Trace) mg/dL Urine Glucose (UA) Negative (Negative) mg/dL Urine Ketones Trace (Negative) mg/dL Urine Blood Negative (Negative) Urine Nitrite Negative (Negative) Ur Leukocyte Esterase Negative (Negative) Urine Opiates Screen POSITIVE H (Not Detect) Urine Fentanyl Screen POSITIVE H (Not Detect) Ur Barbiturates Screen Not Detected (Not Detect) Ur Phencyclidine Scrn Not Detected (Not Detect) Ur Amphetamines Screen POSITIVE H (Not Detect) U Benzodiazepines Scrn POSITIVE H (Not Detect) Urine Cocaine Screen POSITIVE H (Not Detect) U Marijuana (THC) Screen Not Detected (Not Detect) Ethyl Alcohol < 10 mg/dL Independent Interpretation I performed an independent interpretation of an: Plain X-Ray Radiology Impression Discussion of test interpretation with radiology: I have reviewed the radiologist's reading. Critical Care Time Critical Care Time Critical Care Time: No Discharge Plan Discharge Clinical Impression: Suicidal ideation, Acute right hip pain, Knee pain Patient Disposition: Still a Patient Prescriptions: No Action No Known Home Meds Referrals: [facility] [place] Orthopedic Surgeons [Provider Group] - 2 days
[2023-09-01 08:59] LABS: Appearance Urine Clear; Color Urine Yellow; Glucose Urine UA Negative (Negative); Leukocyte Esterase Urine Negative (Negative); Nitrite Urine Negative (Negative); Urine Blood Negative (Negative); Urine Ketones Trace mg/dL (Negative); Urine Protein Negative (Neg-Trace)
[2023-09-01 09:10] LABS: Amphetamine Screen Urine POSITIVE (Not Detect); Barbiturates, Urine Not Detected (Not Detect); Benzodiazepines Screen Urine POSITIVE (Not Detect); Cannabinoid Screen Urine Not Detected (Not Detect); Cocaine Screen Urine POSITIVE (Not Detect); Fentanyl, urine POSITIVE (Not Detect); Opiate Screen Urine POSITIVE (Not Detect); Phencyclidine Screen Urine Not Detected (Not Detect)
[2023-09-01 09:49] LABS: MANUAL DIFF FLAG NO
[2023-09-01 09:50] LABS: Basophils Absolute Auto 0.1 X10*3/uL (0.0-0.2); Basophils Percent Auto 1.2 % (0-2); Eosinophils Absolute Auto 0.2 X10*3/uL (0.0-0.4); Eosinophils Percent Auto 3.9 % (0-4); Hematocrit 39.3 % (37.0-47.0); Hemoglobin 13.2 g/dl (12.0-16.0); Imm Gran Abs Auto 0.01 X10*3/uL (0.00-0.03); Imm Gran Pct Auto 0.2 % (0.0-0.4); Lymphocytes Absolute Auto 1.4 X10*3/uL (1.2-4.9); Lymphocytes Percent Auto 26.9 % (20-40); Mean Corpuscular HGB Conc 33.6 g/dl (31.0-35.0); Mean Corpuscular Hemoglobin 27.8 pg (27.0-33.0); Mean Corpuscular Volume 82.7 fL (80.0-98.0); Mean Platelet Volume 9.6 fL (9.4-12.3); Monocytes Absolute Auto 0.2 X10*3/uL (0.1-1.2); Monocytes Percent Auto 4.3 % (2-11); Neutrophils Absolute Auto 3.2 x10*3/uL (2.0-8.3); Neutrophils Percent Auto 63.5 % (45-73); Platelet Count 266 X10*3/uL (160-400); Red Blood Count 4.75 X10*6/uL (4.20-5.50); Red Cell Distribution Width 13.7 % (11.0-16.0); White Blood Count 5.1 X10*3/uL (4.8-10.8)
[2023-09-01 10:16] LABS: Alanine Aminotransferase 11 U/L (0-31); Alkaline Phosphatase 85 U/L (39-117); Anion Gap 13 (12-20); Aspartate Amino Transferase 14 U/L (5-31); Bilirubin Total 0.5 mg/dL (0.0-1.0); Blood Urea Nitrogen 12 mg/dL (9-16); Calcium 9.3 mg/dL (8.4-10.2); Carbon Dioxide 30 mmol/L (22-29); Chloride 102 mmol/L (96-108); Creatinine Clr Calc Pharmacy 100.8; Estimated Glomerular Filt Rate > 60; Ethanol < 10 mg/dL; Glucose Random 115 mg/dL (60-115); Potassium 3.5 mmol/L (3.3-5.1); Sodium 141 mmol/L (135-145); Total Protein 7.5 g/dL (6.5-8.0)
--- NOTE | 2023-09-01 12:06 | ECG_ITS ---
Test Reason : CHECK QT INTERVAL Blood Pressure : / mmHG Vent. Rate : 090 BPM Atrial Rate : 090 BPM P-R Int : 156 ms QRS Dur : 082 ms QT Int : 362 ms P-R-T Axes : 029 078 050 degrees QTc Int : 442 ms Normal sinus rhythm Normal ECG When compared with ECG of 10-JUL-2023 23:53, No significant change was found Referred By: Jose Jeong Electronically Signed By:HALIMA STEWART
[2023-09-01 12:28] LABS: COVID-19 Test Negative (Negative); IDNOW Serial# 152EDE1D
[2023-09-01 15:12] VITALS: BP 135/85; PULSE 90; RESP 18; TEMP 36.6
--- NOTE | 2023-09-01 15:18 | PC.NURSE ---
Pt changed over into fresh clothes. Filled out menu for dinner and tomorrow x3 meals. Vitals recorded and pt shown to her room. Nothing noted on skin check, but pt has weakness of her right leg. She states that this is due to a necrotic joint that has been going on for the past year and causes her pain. She denies a known cause for this issue. She denies other acute medical issues.
[2023-09-01 19:35] VITALS: BP 126/71; PULSE 105
[2023-09-01] MEDS: cloNIDine HCL 0.1 MG TABLET PO (19:36)
[2023-09-01] MEDS: OLANZapine 5 MG TABLET PO (19:36)
[2023-09-01] MEDS: Acetaminophen 325 MG TABLET 650 MG PO (19:37)
[2023-09-01] MEDS: hydrOXYzine HCL 25 MG TABLET PO (19:38)
[2023-09-01] MEDS: traZODone HCL 50 MG TABLET PO (19:38)
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
[2023-09-02 02:02] VITALS: BMI 22.7
--- NOTE | 2023-09-02 07:41 | PM.EVENT ---
Event Note Date of Service: 09/02/23 Event Note: X-rays reviewed - AVN right hip Chronic Has seen a provider at [facility] in the past No acute orthopedic intervention needed at this time F/u out patient Time Spent With Patient Time: Total time managing care of this patient today ____ minutes.
[2023-09-02 08:10] VITALS: RESP 16; TEMP 36.3
--- NOTE | 2023-09-02 10:07 | HO.PSYADMNOT ---
HPI Date of Service: 09/02/23 Chief Complaint: Depression/SI, opiate use disorder, polysubstance Sources of Information: patient interviewed, chart reviewed and crisis/core team assessment reviewed HPI Subjective Notes: Angel Warning and Conditional Voluntary Narrative: Patient is a 32-year-old female with history of PTSD, polysubstance abuse including opiates, cocaine, amphetamines, Hep C, chronic right hip necrosis who presents with SI plan to jump in front of a car. Patient is having withdrawal symptoms, not wanting to talk much and reticent on approach. However she says she wants to get back on Abilify and Zyprexa to help her back feelings go away. She denies any AVH and mostly just endorses ongoing PTSD symptoms including nightmares for which she agrees to try prazosin. Patient asks if she can rest now talk more tomorrow. Patient asked to be started on methadone. Told care team Arrested 2 days ago for an active warrant because she missed a court date; at court she was encouraged to seek mental health treatment Past Psychiatric History: History of detox History of inpatient admission Medical Evaluation Reviewed: Yes Patient reports right knee and right hip pain and says she has been limping for over a year. + full range of motion to bilateral hips and knees, with slight discomfort with range of motion to right hip and right knee. Tenderness to palpation over the ASIS on the right and overlying the right patella. XR/XR hip RT w PEL1V FINDINGS: End-stage right hip, with marked sclerosis and destruction of the right femoral head again observed. Acetabular protrusio again observed. No acute findings. Left hip intact as is the pelvis. IMPRESSION: End-stage right hip. No substantial change. XR/XR knee RT 4V FINDINGS: Diffuse osteopenia but no fracture or destructive process. No joint effusion. Joint spaces appear well preserved. No erosions. IMPRESSION: Unremarkable study [facility] Medical History (Updated 09/03/23 @ 13:[address] MD) Cocaine use disorder Opioid use disorder Aseptic necrosis of bone of right hip PTSD (post-traumatic stress disorder) Overdose Polysubstance abuse Family History: Father: Sex offender Social History: Chronically homeless for 10+ years Lived with her mother until 13 years old; then lived with her father who was later arrested as a sex offender; patient then in DCF custody as mother was unable to gain custody Did not graduate high school no siblings; no children History of legal problems starting in adolescents including larcency, possession Substance History: Ongoing polysubstance abuse Started using heroin at 18 years old, Started using crack cocaine at 15 years old, Started using cannabis at 14 years old history of meth and PCP abuse Minimal periods of sobriety outside of incarceration; longest period of sobriety in the community being about 2 weeks Trauma History: Traumatic history throughout lifetime Diagnostics Vital Signs (24Hr): Vital Signs - 24 hr 09/01/23 15:12 09/01/23 19:35 09/02/23 08:10 Temperature 97.9 F 97.4 F Pulse Rate 90 105 H Respiratory Rate 18 16 Blood Pressure 135/85 126/71 BMI result Body Mass Index 22.7 Labs 09/01/23 09:44 09/01/23 09:44 Labs: Laboratory Results - last 48 hr 09/01/23 09/01/23 09/01/23 08:00 09:44 12:09 WBC 5.1 RBC 4.75 Hgb 13.2 Hct 39.3 MCV 82.7 MCH 27.8 MCHC 33.6 RDW 13.7 Plt Count 266 MPV 9.6 Immature Gran % (Auto) 0.2 Neut % (Auto) 63.5 Lymph % (Auto) 26.9 [place] % (Auto) 4.3 Eos % (Auto) 3.9 Baso % (Auto) 1.2 Lymph # (Auto) 1.4 [place] # (Auto) 0.2 Eos # (Auto) 0.2 Baso # (Auto) 0.1 Abs Immat Gran (auto) 0.01 Absolute Neuts (auto) 3.2 Absolute Nucleated RBC 0.000 Nucleated RBC % (auto) 0.0 Sodium 141 Potassium 3.5 Chloride 102 Carbon Dioxide 30 H Anion Gap 13 BUN 12 Creatinine 0.61 Estim Creat Clear Calc 100.8 Estimated GFR > 60 Random Glucose 115 Calcium 9.3 Magnesium 2.0 Total Bilirubin 0.5 AST 14 ALT 11 Alkaline Phosphatase 85 Total Protein 7.5 Albumin 4.0 Urine Color Yellow Urine Appearance Clear Urine pH 6.0 Ur Specific [place] 1.010 Urine Protein Negative Urine Glucose (UA) Negative Urine Ketones Trace Urine Blood Negative Urine Nitrite Negative Ur Leukocyte Esterase Negative Urine Opiates Screen POSITIVE H Urine Fentanyl Screen POSITIVE H Ur Barbiturates Screen Not Detected Ur Phencyclidine Scrn Not Detected Ur Amphetamines Screen POSITIVE H U Benzodiazepines Scrn POSITIVE H Urine Cocaine Screen POSITIVE H U Marijuana (THC) Screen Not Detected Ethyl Alcohol < 10 COVID-19 (NABEEL) Negative COVID-19 Clin Com See Note Imaging Radiology Impressions: ITS Impressions Hip/Pelvis X-Ray 09/01/23 08:13 IMPRESSION: End-stage right hip. No substantial change. Knee X-Ray 09/01/23 08:13 IMPRESSION: Unremarkable study. Meds/Allergies Meds Home Medications Medication Instructions Recorded Confirmed Type No Known Home Meds 04/06/23 04/06/23 History Allergies Allergies Allergy/AdvReac Type Severity Reaction Status Date / Time Penicillins [PCN] Allergy Mild HIVES Verified 01/26/22 11:04 amoxicillin [AMOXICILLIN] Allergy Unknown HIVES Verified 01/26/22 11:04 bee pollen [BEE STINGS] Allergy Unknown SWELLING Verified 01/26/22 11:04 bismuth subsalicylate Allergy Unknown VOMITTING Verified 01/26/22 11:04 [From PEPTO-BISMOL] Mental Status Exam Mental Status Exam Narrative: Pt is alert and oriented; behavior is sleepy, guarded, with limited cooperation, but not impolite; patient is not in distress; dressed in hospital attire, disheveled, partially shaved hair; mood is described as depressed and affect constricted; eye contact appropriate; Speech is sparse but otherwise normal rate, volume and prosody and not pressured; psychomotor retardation present; thought process is goal directed; Thought content is on tx; does not disclose much but no paranoia or delusional thinking expressed; intermittent SI; no HI; denies AVH. Patients insight and judgment impaired Assessment & Plan Assessment & Plan (1) PTSD (post-traumatic stress disorder): Status: Acute Code(s): F43.10 - Post-traumatic stress disorder, unspecified (2) Depression: Status: Acute Code(s): F32.A - Depression, unspecified (3) Aseptic necrosis of bone of right hip: Status: Acute Code(s): M87.051 - Idiopathic aseptic necrosis of right femur (4) Opioid use disorder: Status: Acute Code(s): F11.90 - Opioid use, unspecified, uncomplicated (5) Cocaine use disorder: Status: Acute Code(s): F14.10 - Cocaine abuse, uncomplicated (6) Amphetamine use disorder, moderate: Status: Acute Code(s): F15.20 - Other stimulant dependence, uncomplicated Plan Patient is a 32-year-old female with history of PTSD, polysubstance abuse including opiates, cocaine, amphetamines, Hep C, chronic right hip necrosis who presents with SI plan to jump in front of a car. Patient is having withdrawal symptoms, not wanting to talk much and reticent on approach. However she says she wants to get back on Abilify and Zyprexa to help her back feelings go away. She denies any AVH and mostly just endorses ongoing PTSD symptoms including nightmares for which she agrees to try prazosin. Patient asks if she can rest now talk more tomorrow. Patient asked to be started on methadone. Lead Advisor reviewed medication history and patient said she wants to be back on Abilify though she could only say it could help with PTSD; also asked for Zyprexa which was started as a p.r.n. on the unit, to be increased. Plan: CV Q 15 minute checks Will get further history when patient is more willing to talk Start Abilify 5 mg q.h.s. Will increase PRNs Zyprexa to 7.5 mg Restart prazosin 1 mg q.h.s. for nightmares Patient aware of chronic right hip necrosis which she says has been going on for over a year; says she knows she needs a hip replacement XR/XR hip RT w PEL1V FINDINGS: End-stage right hip, with marked sclerosis and destruction of the right femoral head again observed. Acetabular protrusio again observed. No acute findings. Left hip intact as is the pelvis. IMPRESSION:End-stage right hip. No substantial change. XR/XR knee RT 4V FINDINGS: Diffuse osteopenia but no fracture or destructive process. No joint effusion. Joint spaces appear well preserved. No erosions. IMPRESSION: Unremarkable study past med trials recorded: Abilify 20 mg Depakote ER 250 mg Mirtazapine 7.5 mg Prazosin 1 mg q.h.s. Sumatriptan 50 mgTrazodone 100 mg Patient educated on: diagnosis, medication risk/benefits, substance abuse and medical condition Informed Consent: understands Reason for continued inpatient stay Substantial Risk for: rapid decompensation Statement Statement: I have reviewed the history and physical and performed a pertinent examination on my patient. No changes have occurred unless specified. If the History and Physical was not performed prior to admission, the Hospitalist's service will be consulted for completing the admission physical. Time Spent With Patient Time: Total time managing care of this patient today ____ minutes.
[2023-09-02] MEDS: methADONE HCl 20 MG/2 ML ORAL.CONC PO (10:46)
[2023-09-02] MEDS: cloNIDine HCL 0.1 MG TABLET PO (10:49)
[2023-09-02] MEDS: hydrOXYzine HCL 25 MG TABLET PO (10:49)
[2023-09-02] MEDS: OLANZapine 5 MG TABLET PO (10:49)
--- NOTE | 2023-09-02 10:49 | MHC.RECOVRN ---
Met with pt in 516 [facility] Pt had presented to the ED with SI and chronic hip pain. Upon evaluation, pt admitted to [facility]. Pt laying in bed, awake, alert, irritable but engages in conversation. Pt reports heroin/fentanyl use, a couple bags daily, IN/INH, as well as cocaine, INH, $40 daily. Pt then reports using up to 10 bags heroin/fentanyl daily. Pt denies hx MOUD, has utilized methadone while at [facility]. Pt reports beginning opioid use a few years ago. Pt reports longest time in recovery has been 2 weeks. Pt reports hx 4 overdoses. Discussed MOUD, pt is interested in initiating methadone and continuing after discharge. Pt currently reports diaphoresis and stomach knotting. Pt reports sleep and appetite are good. Pt denies other questions or concerns for t/w. Discussed with provider, plan to order 20 mg methadone and reassess.
[2023-09-02 10:52] VITALS: BP 120/75; RESP 107
--- NOTE | 2023-09-02 16:17 | MHC.RECOVRN ---
Followed up with patient after receiving 20 mg methadone this morning. Pt laying in bed, blanket over face, states I'm sleeping when t/w approached. When asked if methadone helped, pt states I don't know. Pt reports continued diaphoresis. Pt does not have photo ID, however, reports [facility] and is agreeable to t/w obtaining ID through classifications in order to continue methadone titration. Pt denies other questions or concerns. Provider aware.
[2023-09-02] MEDS: ARIPiprazole 5 MG TABLET PO (17:09)
[2023-09-02] MEDS: methADONE HCl 20 MG/2 ML ORAL.CONC 5 MG PO (17:09)
[2023-09-02 20:20] VITALS: BP 101/60; PULSE 95; RESP 16; TEMP 36.4; O2SAT 99
[2023-09-02] MEDS: Prazosin HCL 1 MG CAPSULE PO (20:33)
[2023-09-02] MEDS: traZODone HCL 50 MG TABLET PO (20:33)
[2023-09-03] MEDS: methADONE HCl 20 MG/2 ML ORAL.CONC 30 MG PO (08:43)
[2023-09-03] MEDS: Nicotine 21 MG PATCH.TD24 TRANSDERMA (08:44)
[2023-09-03] MEDS: hydrOXYzine HCL 25 MG TABLET PO (09:55)
[2023-09-03] MEDS: OLANZapine 7.5 MG TABLET PO (09:56)
[2023-09-03] MEDS: cloNIDine HCL 0.1 MG TABLET PO ×2 (09:56→20:33)
--- NOTE | 2023-09-03 11:52 | PM.EVENT ---
Event Note Date of Service: 09/03/23 Event Note: addiction follow up Patient seen by manager workers compensation Withdrawal sx improving with methadone 30mg Still reporting chills and stomach discomfort Plan: -additional 10mg today (total of 40mg ) -methadone 40mg QD Time Spent With Patient Time: Total time managing care of this patient today ____ minutes.
--- NOTE | 2023-09-03 13:07 | P.PNPSI_ITS ---
Subjective Subjective Date of Service: 09/03/23 Reason For Visit: Depression/SI, opiate use disorder, polysubstance Interim History: met with patient; discussed with team More talkative interactive today. Still depressed but feeling a little better. Says prazosin it limited nightmares last night. Discussed history more. No hx of manic episodes; no AVH Patient does have significant PTSD symptoms including intermittent disssociative episodes Discussed medication history in more detail. Patient wants to get back on remeron which helped w/ insomnia; however she felt it did not adequately address PTSD and after discussing risks/side effects of medication regimens she would like to get on Prozac to which typewriter tester agreed. In addition to staying on Abilify albeit lower dose than previously, she asks for Thorazine as a p.r.n.. She says her PTSD/anxiety is typically much worse in the afternoon and says Thorazine has helped in the past. She has been taking p.r.n. Zyprexa which she does not find helpful. Discussed necrotic hip, imaging from hip and knees; she knows about both which are chronic and eventually she hopes to get a hip replacement Diagnostics Vital Signs (24Hr): Vital Signs - 24 hr 09/02/23 20:20 Temperature 97.5 F Pulse Rate 95 Respiratory Rate 16 Blood Pressure 101/60 Pulse Oximetry 99 Oxygen Delivery Method Room Air BMI result Body Mass Index 22.7 Labs 09/01/23 09:44 09/01/23 09:44 Imaging Radiology Impressions: ITS Impressions Hip/Pelvis X-Ray 09/01/23 08:13 IMPRESSION: End-stage right hip. No substantial change. Knee X-Ray 09/01/23 08:13 IMPRESSION: Unremarkable study. Medications Medications Current Medications Acetaminophen (Acetaminophen 325 Mg Tablet) 650 mg PO Q6H PRN PRN Reason: Headache/Pain Mild Scale (1-3) Last Admin: 09/01/23 19:37 Dose: 650 mg Al Hydroxide/Mg Hydroxide (Magnesium Hydrox/Alum Hydrox 30 Ml Oral.Susp) 30 ml PO Q6H PRN PRN Reason: Heartburn/Nausea Albuterol Sulfate (Albuterol Sulfate 90 Mcg 8 Gm Inhaler) 2 puff INHALE RQ4H PRN PRN Reason: Shortness of Breath Aripiprazole (Aripiprazole 5 Mg Tablet) 5 mg PO BEDTIME KAITY Clonidine HCl (Clonidine Hcl 0.1 Mg Tablet) 0.1 mg PO TID PRN; Protocol PRN Reason: withdrawal Last Admin: 09/03/23 09:56 Dose: 0.1 mg Hydroxyzine HCl (Hydroxyzine Hcl 25 Mg Tablet) 25 mg PO Q6H PRN PRN Reason: Anxiety Last Admin: 09/03/23 09:55 Dose: 25 mg Magnesium Hydroxide (Milk Of Magnesia 30 Ml Oral.Susp) 30 ml PO DAILY PRN PRN Reason: Constipation Methadone HCl (Methadone Hcl 20 Mg/2 Ml Oral.Conc) 40 mg PO DAILY KAITY Nicotine (Nicotine 21 Mg Patch.Td24) 21 mg TRANSDERMA DAILY KAITY Last Admin: 09/03/23 08:44 Dose: 21 mg Olanzapine (Olanzapine 7.5 Mg Tablet) 7.5 mg PO TID PRN PRN Reason: agitation Last Admin: 09/03/23 09:56 Dose: 7.5 mg Prazosin HCl (Prazosin Hcl 1 Mg Capsule) 1 mg PO BEDTIME KAITY; Protocol Last Admin: 09/02/23 20:33 Dose: 1 mg Trazodone HCl (Trazodone Hcl 50 Mg Tablet) 50 mg PO BEDTIME MRX1 PRN PRN Reason: Insomnia Last Admin: 09/02/23 20:33 Dose: 50 mg Allergies Allergies Allergy/AdvReac Type Severity Reaction Status Date / Time Penicillins [PCN] Allergy Mild HIVES Verified 01/26/22 11:04 amoxicillin [AMOXICILLIN] Allergy Unknown HIVES Verified 01/26/22 11:04 bee pollen [BEE STINGS] Allergy Unknown SWELLING Verified 01/26/22 11:04 bismuth subsalicylate Allergy Unknown VOMITTING Verified 01/26/22 11:04 [From PEPTO-BISMOL] Assessment & Plan Assessment & Plan (1) PTSD (post-traumatic stress disorder): Status: Acute Code(s): F43.10 - Post-traumatic stress disorder, unspecified (2) Depression: Status: Acute Code(s): F32.A - Depression, unspecified (3) Aseptic necrosis of bone of right hip: Status: Acute Code(s): M87.051 - Idiopathic aseptic necrosis of right femur (4) Opioid use disorder: Status: Acute Code(s): F11.90 - Opioid use, unspecified, uncomplicated (5) Cocaine use disorder: Status: Acute Code(s): F14.10 - Cocaine abuse, uncomplicated (6) Amphetamine use disorder, moderate: Status: Acute Code(s): F15.20 - Other stimulant dependence, uncomplicated Plan Patient is a 32-year-old female with history of PTSD, polysubstance abuse including opiates, cocaine, amphetamines, Hep C, chronic right hip necrosis who presents with SI plan to jump in front of a car. Patient is having withdrawal symptoms, not wanting to talk much and reticent on approach. However she says she wants to get back on Abilify and Zyprexa to help her back feelings go away. She denies any AVH and mostly just endorses ongoing PTSD symptoms including nightmares for which she agrees to try prazosin. Patient asks if she can rest now talk more tomorrow. Patient asked to be started on methadone. Threat Monitoring Analyst reviewed medication history and patient said she wants to be back on Abilify though she could only say it could help with PTSD; also asked for Zyprexa which was started as a p.r.n. on the unit, to be increased. Hospital course: 09/03 More talkative interactive today. Still depressed but feeling a little better. Says prazosin it limited nightmares last night. Still in withdrawal but not as bad Discussed history more. No hx of manic episodes; no AVH Patient does have significant PTSD symptoms including intermittent disssociative episodes Discussed medication history in more detail. Patient wants to get back on remeron which helped w/ insomnia; however she felt it did not adequately address PTSD and after discussing risks/side effects of medication regimens she would like to get on Prozac to which typewriter tester agreed. In addition to staying on Abilify albeit lower dose than previously, she asks for Thorazine as a p.r.n.. She says her PTSD/anxiety is typically much worse in the afternoon and says Thorazine has helped in the past. She has been taking p.r.n. Zyprexa which she does not find helpful. Plan: CV Q 15 minute checks start Prozac 10mg daily for ptsd/depression start Remeron 7.5mg qhs for insomnia/depression Continue Abilify 5 mg q.h.s. Added Thorazine 100mg daily prn for mod-severe anxiety continue prazosin 1 mg q.h.s. for nightmares Increase Methadone to 45mg (continue to titrate) Patient aware of chronic right hip necrosis which she says has been going on for over a year; says she knows she needs a hip replacement XR/XR hip RT w PEL1V FINDINGS: End-stage right hip, with marked sclerosis and destruction of the right femoral head again observed. Acetabular protrusio again observed. No acute findings. Left hip intact as is the pelvis. IMPRESSION:End-stage right hip. No substantial change. XR/XR knee RT 4V FINDINGS:Diffuse osteopenia but no fracture or destructive process. No joint effusion. Joint spaces appear well preserved. No erosions. IMPRESSION: Unremarkable study past med trials recorded: Abilify 20 mg Depakote ER 250 mg Mirtazapine 7.5 mg Prazosin 1 mg q.h.s. Sumatriptan 50 mgTrazodone 100 mg Patient educated on: diagnosis, medication risk/benefits, substance abuse and medical condition Informed Consent: understands Reason for continued inpatient stay Substantial Risk for: rapid decompensation Time Spent With Patient Time: Total time managing care of this patient today ____ minutes.
[2023-09-03] MEDS: methADONE HCl 20 MG/2 ML ORAL.CONC 10 MG PO (14:16)
--- NOTE | 2023-09-03 15:37 | MHC.RECOVRN ---
Met with pt to follow up after receiving 30 mg methadone this morning. Pt awake, alert, easier to engage in conversation than yesterday. Pt reports continued symptoms of withdrawal including stomach cramps and feeling hot/cold. Pt would like to continue methadone titration. Pt hopeful to be accepted to [facility] [place] [facility]. Denies other questions or concerns. Discussed with Alesia Garcia APRN. Pt to receive additional 10 mg methadone and begin 40 mg daily on 09/04.
[2023-09-03] MEDS: chlorproMAZINE HCl 100 MG TABLET PO (16:33)
[2023-09-03 20:30] VITALS: BP 126/83; PULSE 132; RESP 18; TEMP 36.6; O2SAT 95
[2023-09-03] MEDS: Mirtazapine 7.5 MG TABLET PO (20:33)
[2023-09-03] MEDS: Prazosin HCL 1 MG CAPSULE PO (20:33)
[2023-09-03] MEDS: ARIPiprazole 5 MG TABLET PO (20:33)
[2023-09-03] MEDS: traZODone HCL 50 MG TABLET PO (20:34)
[2023-09-04] MEDS: FLUoxetine HCl 10 MG CAPSULE PO (08:08)
[2023-09-04] MEDS: Nicotine 21 MG PATCH.TD24 TRANSDERMA (08:09)
[2023-09-04] MEDS: methADONE HCl 20 MG/2 ML ORAL.CONC 45 MG PO (08:09)
--- NOTE | 2023-09-04 10:31 | P.PNPSI_ITS ---
Subjective Subjective Date of Service: 09/04/23 Reason For Visit: Depression/SI, opiate use disorder, polysubstance Subjective Notes: Conditional Voluntary Healthcare Proxy: No Guardianship: No Medical Problems Affecting Mental Status: No Interim History: Tolerating new regime. Continues to report withdrawal sx-cramping, loose stools-review of available agents to assist with sx mgt. Medication Compliance: Yes Side effects from medications: No Attending Groups: Intermittent Review of Systems Medical Review of Systems: unchanged Review of Systems Review of Systems Withdrawal sx Mental Status Exam Mental Status Exam Patient Appearance: Fatigued Patient Orientation: Person, Place, Time and Situation Level of Consciousness: Alert Patient Behavior: Talkative, Cooperative and Good Eye Contact Mood Description: Withdrawn, Depressed and Anxious Affect Description: Flat Patient Cognition Impaired: No Ability to Follow Directions: Good Speech Pattern: Spontaneous Speech Memory Description: Episodic Impaired Hallucinations: None Delusions: Not Present Perceptual Disturbances: Depersonalization and Derealization Thought Process: Rumination and Goal Oriented Thought Content: positive for Goal Oriented and positive for Perseveration Depressive Symptoms: Increased Anxiety Abnormal Motor Activity Signs and Symptoms: Restlessness Judgement: Fair Diagnostics Vital Signs (24Hr): Vital Signs - 24 hr 09/03/23 20:30 Temperature 98 F Pulse Rate 132 H Respiratory Rate 18 Blood Pressure 126/83 Pulse Oximetry 95 Oxygen Delivery Method Room Air BMI result Body Mass Index 22.7 Labs 09/01/23 09:44 09/01/23 09:44 Imaging Radiology Impressions: ITS Impressions Hip/Pelvis X-Ray 09/01/23 08:13 IMPRESSION: End-stage right hip. No substantial change. Knee X-Ray 09/01/23 08:13 IMPRESSION: Unremarkable study. Medications Medications Current Medications Acetaminophen (Acetaminophen 325 Mg Tablet) 650 mg PO Q6H PRN PRN Reason: Headache/Pain Mild Scale (1-3) Last Admin: 09/01/23 19:37 Dose: 650 mg Al Hydroxide/Mg Hydroxide (Magnesium Hydrox/Alum Hydrox 30 Ml Oral.Susp) 30 ml PO Q6H PRN PRN Reason: Heartburn/Nausea Albuterol Sulfate (Albuterol Sulfate 90 Mcg 8 Gm Inhaler) 2 puff INHALE RQ4H PRN PRN Reason: Shortness of Breath Aripiprazole (Aripiprazole 5 Mg Tablet) 5 mg PO BEDTIME KAITY Last Admin: 09/03/23 20:33 Dose: 5 mg Chlorpromazine HCl (Chlorpromazine Hcl 100 Mg Tablet) 100 mg PO DAILY PRN PRN Reason: moderate to severe anxiety Clonidine HCl (Clonidine Hcl 0.1 Mg Tablet) 0.1 mg PO TID PRN; Protocol PRN Reason: withdrawal Last Admin: 09/03/23 20:33 Dose: 0.1 mg Fluoxetine HCl (Fluoxetine Hcl 10 Mg Capsule) 10 mg PO DAILY KAITY Last Admin: 09/04/23 08:08 Dose: 10 mg Hydroxyzine HCl (Hydroxyzine Hcl 25 Mg Tablet) 25 mg PO Q6H PRN PRN Reason: Anxiety Last Admin: 09/03/23 09:55 Dose: 25 mg Magnesium Hydroxide (Milk Of Magnesia 30 Ml Oral.Susp) 30 ml PO DAILY PRN PRN Reason: Constipation Methadone HCl (Methadone Hcl 20 Mg/2 Ml Oral.Conc) 45 mg PO DAILY KAITY Last Admin: 09/04/23 08:09 Dose: 45 mg Mirtazapine (Mirtazapine 7.5 Mg Tablet) 7.5 mg PO BEDTIME KAITY Last Admin: 09/03/23 20:33 Dose: 7.5 mg Nicotine (Nicotine 21 Mg Patch.Td24) 21 mg TRANSDERMA DAILY KAITY Last Admin: 09/04/23 08:09 Dose: 21 mg Prazosin HCl (Prazosin Hcl 1 Mg Capsule) 1 mg PO BEDTIME KAITY; Protocol Last Admin: 09/03/23 20:33 Dose: 1 mg Trazodone HCl (Trazodone Hcl 50 Mg Tablet) 50 mg PO BEDTIME MRX1 PRN PRN Reason: Insomnia Last Admin: 09/03/23 20:34 Dose: 50 mg Allergies Allergies Allergy/AdvReac Type Severity Reaction Status Date / Time Penicillins [PCN] Allergy Mild HIVES Verified 01/26/22 11:04 amoxicillin [AMOXICILLIN] Allergy Unknown HIVES Verified 01/26/22 11:04 bee pollen [BEE STINGS] Allergy Unknown SWELLING Verified 01/26/22 11:04 bismuth subsalicylate Allergy Unknown VOMITTING Verified 01/26/22 11:04 [From PEPTO-BISMOL] Assessment & Plan Assessment & Plan (1) PTSD (post-traumatic stress disorder): Status: Acute Code(s): F43.10 - Post-traumatic stress disorder, unspecified (2) Depression: Status: Acute Code(s): F32.A - Depression, unspecified Assessment and Plan: 09/04/23 Continue current tx. (3) Aseptic necrosis of bone of right hip: Status: Acute Code(s): M87.051 - Idiopathic aseptic necrosis of right femur (4) Opioid use disorder: Status: Acute Code(s): F11.90 - Opioid use, unspecified, uncomplicated (5) Cocaine use disorder: Status: Acute Code(s): F14.10 - Cocaine abuse, uncomplicated (6) Amphetamine use disorder, moderate: Status: Acute Code(s): F15.20 - Other stimulant dependence, uncomplicated Plan Patient is a 32-year-old female with history of PTSD, polysubstance abuse including opiates, cocaine, amphetamines, Hep C, chronic right hip necrosis who presents with SI plan to jump in front of a car. Patient is having withdrawal symptoms, not wanting to talk much and reticent on approach. However she says she wants to get back on Abilify and Zyprexa to help her back feelings go away. She denies any AVH and mostly just endorses ongoing PTSD symptoms including nightmares for which she agrees to try prazosin. Patient asks if she can rest now talk more tomorrow. Patient asked to be started on methadone. Montessori Toddler Teacher reviewed medication history and patient said she wants to be back on Abilify though she could only say it could help with PTSD; also asked for Zyprexa which was started as a p.r.n. on the unit, to be increased. Plan: CV Q 15 minute checks start Prozac 10mg daily for ptsd/depression start Remeron 7.5mg qhs for insomnia/depression Continue Abilify 5 mg q.h.s. Added Thorazine 100mg daily prn for mod-severe anxiety continue prazosin 1 mg q.h.s. for nightmares Increase Methadone to 45mg (continue to titrate) Patient aware of chronic right hip necrosis which she says has been going on for over a year; says she knows she needs a hip replacement XR/XR hip RT w PEL1V FINDINGS: End-stage right hip, with marked sclerosis and destruction of the right femoral head again observed. Acetabular protrusio again observed. No acute findings. Left hip intact as is the pelvis. IMPRESSION:End-stage right hip. No substantial change. XR/XR knee RT 4V FINDINGS: Diffuse osteopenia but no fracture or destructive process. No joint effusion. Joint spaces appear well preserved. No erosions. IMPRESSION: Unremarkable study past med trials recorded: Abilify 20 mg Depakote ER 250 mg Mirtazapine 7.5 mg Prazosin 1 mg q.h.s. Sumatriptan 50 mgTrazodone 100 mg Patient educated on: therapeutic strategies Informed Consent: understands and further education needed Reason for continued inpatient stay Substantial Risk for: rapid decompensation Time Spent With Patient Time: Total time managing care of this patient today ____ minutes.
--- NOTE | 2023-09-04 11:51 | MHC.RECOVRN ---
Met with pt to follow up after receiving 40mg methadone this morning. Pt awake, alert, she was in the rec room braiding another patients hair when I approached her. Pt reports continued symptoms of withdrawal including loose stools and diaphoresis. Pt was given a shirt, bra and leggings per request from yesterday. Denies other questions or concerns. Discussed with Alesia Garcia APRN.
[2023-09-04] MEDS: chlorproMAZINE HCl 100 MG TABLET PO (12:19)
[2023-09-04] MEDS: cloNIDine HCL 0.1 MG TABLET PO (12:19)
[2023-09-04 12:20] VITALS: BP 112/79; PULSE 119
[2023-09-04 16:38] VITALS: BP 120/77; PULSE 97; TEMP 36.2; O2SAT 98
[2023-09-04] MEDS: traZODone HCL 50 MG TABLET PO (20:22)
[2023-09-04] MEDS: ARIPiprazole 5 MG TABLET PO (20:22)
[2023-09-04] MEDS: Mirtazapine 7.5 MG TABLET PO (20:22)
[2023-09-04] MEDS: Prazosin HCL 1 MG CAPSULE PO (20:22)
[2023-09-05] MEDS: chlorproMAZINE HCl 100 MG TABLET PO ×2 (08:58→18:18)
[2023-09-05] MEDS: Nicotine 21 MG PATCH.TD24 TRANSDERMA (08:58)
[2023-09-05] MEDS: methADONE HCl 20 MG/2 ML ORAL.CONC 45 MG PO (08:59)
[2023-09-05] MEDS: FLUoxetine HCl 10 MG CAPSULE PO (09:02)
[2023-09-05 10:10] VITALS: RESP 18
[2023-09-05 12:02] VITALS: BP 127/82; PULSE 102; RESP 18; TEMP 36; O2SAT 98
[2023-09-05] MEDS: hydrOXYzine HCL 25 MG TABLET PO ×2 (12:09→20:36)
[2023-09-05] MEDS: cloNIDine HCL 0.1 MG TABLET PO ×2 (12:09→18:18)
[2023-09-05 17:11] VITALS: BP 116/78; PULSE 103; RESP 18; TEMP 36.7; O2SAT 97
--- NOTE | 2023-09-05 19:03 | P.PNPSI_ITS ---
Subjective Subjective Date of Service: 09/05/23 Reason For Visit: Depression/SI, opiate use disorder, polysubstance Subjective Notes: Conditional Voluntary Healthcare Proxy: No Guardianship: No Medical Problems Affecting Mental Status: No Interim History: Struggling with addictive, depressive and PTSD sx including flashbacks, cravings, feeling outside of herself at times. Clonidine is not helpful, Prazosin she is unsure if it is useful. Methadone titration proceeding, not fast enough . Discussed options. Also very worried about her hip and if it can be addressed while he is here. Medication Compliance: Yes Side effects from medications: No Attending Groups: Yes Review of Systems Acute medical concerns: No Medical Review of Systems: unchanged Review of Systems Review of Systems hip pain, decrease in mobility Mental Status Exam Mental Status Exam Patient Appearance: Fatigued Patient Orientation: Person, Place, Time and Situation Level of Consciousness: Alert Patient Behavior: Talkative, Cooperative and Good Eye Contact Mood Description: Withdrawn, Depressed and Anxious Affect Description: Flat Patient Cognition Impaired: No Ability to Follow Directions: Good Speech Pattern: Spontaneous Speech Memory Description: Episodic Impaired Hallucinations: None Delusions: Not Present Perceptual Disturbances: Depersonalization and Derealization Thought Process: Rumination and Goal Oriented Thought Content: positive for Goal Oriented and positive for Perseveration Depressive Symptoms: Increased Anxiety Abnormal Motor Activity Signs and Symptoms: Restlessness Judgement: Fair Diagnostics Vital Signs (24Hr): Vital Signs - 24 hr 09/05/23 10:10 09/05/23 12:02 09/05/23 17:11 Temperature 96.8 F 98.0 F Pulse Rate 102 H 103 H Respiratory Rate 18 18 18 Blood Pressure 127/82 116/78 Pulse Oximetry 98 97 Oxygen Delivery Method Room Air BMI result Body Mass Index 22.7 Labs 09/01/23 09:44 09/01/23 09:44 Imaging Radiology Impressions: ITS Impressions Hip/Pelvis X-Ray 09/01/23 08:13 IMPRESSION: End-stage right hip. No substantial change. Knee X-Ray 09/01/23 08:13 IMPRESSION: Unremarkable study. Medications Medications Current Medications Acetaminophen (Acetaminophen 325 Mg Tablet) 650 mg PO Q6H PRN PRN Reason: Headache/Pain Mild Scale (1-3) Last Admin: 09/01/23 19:37 Dose: 650 mg Al Hydroxide/Mg Hydroxide (Magnesium Hydrox/Alum Hydrox 30 Ml Oral.Susp) 30 ml PO Q6H PRN PRN Reason: Heartburn/Nausea Albuterol Sulfate (Albuterol Sulfate 90 Mcg 8 Gm Inhaler) 2 puff INHALE RQ4H PRN PRN Reason: Shortness of Breath Aripiprazole (Aripiprazole 5 Mg Tablet) 5 mg PO BEDTIME KAITY Last Admin: 09/04/23 20:22 Dose: 5 mg Chlorpromazine HCl (Chlorpromazine Hcl 100 Mg Tablet) 100 mg PO BID PRN PRN Reason: moderate to severe anxiety Last Admin: 09/05/23 18:18 Dose: 100 mg Clonidine HCl (Clonidine Hcl 0.1 Mg Tablet) 0.1 mg PO TID PRN; Protocol PRN Reason: withdrawal Last Admin: 09/05/23 18:18 Dose: 0.1 mg Fluoxetine HCl (Fluoxetine Hcl 10 Mg Capsule) 10 mg PO DAILY KAITY Last Admin: 09/05/23 09:02 Dose: 10 mg Hydroxyzine HCl (Hydroxyzine Hcl 25 Mg Tablet) 25 mg PO Q6H PRN PRN Reason: Anxiety Last Admin: 09/05/23 12:09 Dose: 25 mg Magnesium Hydroxide (Milk Of Magnesia 30 Ml Oral.Susp) 30 ml PO DAILY PRN PRN Reason: Constipation Methadone HCl (Methadone Hcl 20 Mg/2 Ml Oral.Conc) 45 mg PO DAILY KAITY Last Admin: 09/05/23 08:59 Dose: 45 mg Mirtazapine (Mirtazapine 7.5 Mg Tablet) 7.5 mg PO BEDTIME KAITY Last Admin: 09/04/23 20:22 Dose: 7.5 mg Nicotine (Nicotine 21 Mg Patch.Td24) 21 mg TRANSDERMA DAILY KAITY Last Admin: 09/05/23 08:58 Dose: 21 mg Prazosin HCl (Prazosin Hcl 1 Mg Capsule) 1 mg PO BEDTIME KAITY; Protocol Last Admin: 09/04/23 20:22 Dose: 1 mg Trazodone HCl (Trazodone Hcl 50 Mg Tablet) 50 mg PO BEDTIME MRX1 PRN PRN Reason: Insomnia Last Admin: 09/04/23 20:22 Dose: 50 mg Allergies Allergies Allergy/AdvReac Type Severity Reaction Status Date / Time Penicillins [PCN] Allergy Mild HIVES Verified 01/26/22 11:04 amoxicillin [AMOXICILLIN] Allergy Unknown HIVES Verified 01/26/22 11:04 bee pollen [BEE STINGS] Allergy Unknown SWELLING Verified 01/26/22 11:04 bismuth subsalicylate Allergy Unknown VOMITTING Verified 01/26/22 11:04 [From PEPTO-BISMOL] Assessment & Plan Assessment & Plan (1) PTSD (post-traumatic stress disorder): Status: Acute Code(s): F43.10 - Post-traumatic stress disorder, unspecified (2) Depression: Status: Acute Code(s): F32.A - Depression, unspecified Assessment and Plan: 09/04/23 Continue current tx. 09/05/23 Increase chlorpromazine prn to bid (3) Aseptic necrosis of bone of right hip: Status: Acute Code(s): M87.051 - Idiopathic aseptic necrosis of right femur (4) Opioid use disorder: Status: Acute Code(s): F11.90 - Opioid use, unspecified, uncomplicated (5) Cocaine use disorder: Status: Acute Code(s): F14.10 - Cocaine abuse, uncomplicated (6) Amphetamine use disorder, moderate: Status: Acute Code(s): F15.20 - Other stimulant dependence, uncomplicated Plan Patient is a 32-year-old female with history of PTSD, polysubstance abuse including opiates, cocaine, amphetamines, Hep C, chronic right hip necrosis who presents with SI plan to jump in front of a car. Patient is having withdrawal symptoms, not wanting to talk much and reticent on approach. However she says she wants to get back on Abilify and Zyprexa to help her back feelings go away. She denies any AVH and mostly just endorses ongoing PTSD symptoms including nightmares for which she agrees to try prazosin. Patient asks if she can rest now talk more tomorrow. Patient asked to be started on methadone. Enterostomal Therapy Nurse reviewed medication history and patient said she wants to be back on Abilify though she could only say it could help with PTSD; also asked for Zyprexa which was started as a p.r.n. on the unit, to be increased. Plan: CV Q 15 minute checks start Prozac 10mg daily for ptsd/depression start Remeron 7.5mg qhs for insomnia/depression Continue Abilify 5 mg q.h.s. Added Thorazine 100mg daily prn for mod-severe anxiety continue prazosin 1 mg q.h.s. for nightmares Increase Methadone to 45mg (continue to titrate) Patient aware of chronic right hip necrosis which she says has been going on for over a year; says she knows she needs a hip replacement XR/XR hip RT w PEL1V FINDINGS: End-stage right hip, with marked sclerosis and destruction of the right femoral head again observed. Acetabular protrusio again observed. No acute findings. Left hip intact as is the pelvis. IMPRESSION:End-stage right hip. No substantial change. XR/XR knee RT 4V FINDINGS: Diffuse osteopenia but no fracture or destructive process. No joint effusion. Joint spaces appear well preserved. No erosions. IMPRESSION: Unremarkable study past med trials recorded: Abilify 20 mg Depakote ER 250 mg Mirtazapine 7.5 mg Prazosin 1 mg q.h.s. Sumatriptan 50 mgTrazodone 100 mg Reason for continued inpatient stay Substantial Risk for: rapid decompensation Time Spent With Patient Time: Total time managing care of this patient today ____ minutes.
[2023-09-05] MEDS: Mirtazapine 7.5 MG TABLET PO (20:35)
[2023-09-05] MEDS: ARIPiprazole 5 MG TABLET PO (20:35)
[2023-09-05] MEDS: Prazosin HCL 1 MG CAPSULE PO (20:35)
[2023-09-05] MEDS: traZODone HCL 50 MG TABLET PO (20:36)
[2023-09-06] MEDS: FLUoxetine HCl 10 MG CAPSULE PO ×2 (08:46→13:37)
[2023-09-06] MEDS: Nicotine 21 MG PATCH.TD24 TRANSDERMA (08:46)
[2023-09-06] MEDS: methADONE HCl 20 MG/2 ML ORAL.CONC 45 MG PO (08:47)
--- NOTE | 2023-09-06 09:07 | HO.PSYCHPN ---
Subjective Subjective Date of Service: 09/06/23 Reason For Visit: Depression/SI, opiate use disorder, polysubstance Interim History: Met with patient; discussed with team; reviewed chart reports doing a little better but still depressed and exceedingly anxious and w/ ongoing flashbacks. Agrees to increase Prozac; also reports continued cravings and agrees to increased Methadone. Wanting something for cocaine cravings but will let self get used to current regimen before adding Mental Status Exam Mental Status Exam Narrative: Pt is alert and oriented; behavior is cooperative, more friendly and engaged, calm; patient is not in distress; dressed in casual attire with paritally buzzed hair; limp; adequate hygiene; mood is described as little better; anxious and affect congruent; eye contact appropriate; Speech is normal rate, volume and prosody and not pressured; no psychomotor agitation/retardation present; thought process is organized and goal directed; Thought content is on tx; past trauma; otherwise pertinent to relevant topics and without any delusional content, paranoid ideations or grandiosity; denies any SI/HI. There is no evidence of perceptual disturbance. Patients insight and judgment improving. Diagnostics Vital Signs (24Hr): Vital Signs - 24 hr 09/05/23 10:10 09/05/23 12:02 09/05/23 17:11 Temperature 96.8 F 98.0 F Pulse Rate 102 H 103 H Respiratory Rate 18 18 18 Blood Pressure 127/82 116/78 Pulse Oximetry 98 97 Oxygen Delivery Method Room Air BMI result Body Mass Index 22.7 Labs 09/01/23 09:44 09/01/23 09:44 Imaging Radiology Impressions: ITS Impressions Hip/Pelvis X-Ray 09/01/23 08:13 IMPRESSION: End-stage right hip. No substantial change. Knee X-Ray 09/01/23 08:13 IMPRESSION: Unremarkable study. Medications Medications Current Medications Acetaminophen (Acetaminophen 325 Mg Tablet) 650 mg PO Q6H PRN PRN Reason: Headache/Pain Mild Scale (1-3) Last Admin: 09/01/23 19:37 Dose: 650 mg Al Hydroxide/Mg Hydroxide (Magnesium Hydrox/Alum Hydrox 30 Ml Oral.Susp) 30 ml PO Q6H PRN PRN Reason: Heartburn/Nausea Albuterol Sulfate (Albuterol Sulfate 90 Mcg 8 Gm Inhaler) 2 puff INHALE RQ4H PRN PRN Reason: Shortness of Breath Aripiprazole (Aripiprazole 5 Mg Tablet) 5 mg PO BEDTIME KAITY Last Admin: 09/05/23 20:35 Dose: 5 mg Chlorpromazine HCl (Chlorpromazine Hcl 100 Mg Tablet) 100 mg PO BID PRN PRN Reason: moderate to severe anxiety Last Admin: 09/05/23 18:18 Dose: 100 mg Clonidine HCl (Clonidine Hcl 0.1 Mg Tablet) 0.1 mg PO TID PRN; Protocol PRN Reason: withdrawal Last Admin: 09/05/23 18:18 Dose: 0.1 mg Fluoxetine HCl (Fluoxetine Hcl 10 Mg Capsule) 10 mg PO DAILY KAITY Last Admin: 09/06/23 08:46 Dose: 10 mg Hydroxyzine HCl (Hydroxyzine Hcl 25 Mg Tablet) 25 mg PO Q6H PRN PRN Reason: Anxiety Last Admin: 09/05/23 20:36 Dose: 25 mg Magnesium Hydroxide (Milk Of Magnesia 30 Ml Oral.Susp) 30 ml PO DAILY PRN PRN Reason: Constipation Methadone HCl (Methadone Hcl 20 Mg/2 Ml Oral.Conc) 45 mg PO DAILY KAITY Last Admin: 09/06/23 08:47 Dose: 45 mg Mirtazapine (Mirtazapine 7.5 Mg Tablet) 7.5 mg PO BEDTIME KAITY Last Admin: 09/05/23 20:35 Dose: 7.5 mg Nicotine (Nicotine 21 Mg Patch.Td24) 21 mg TRANSDERMA DAILY KAITY Last Admin: 09/06/23 08:46 Dose: 21 mg Prazosin HCl (Prazosin Hcl 1 Mg Capsule) 1 mg PO BEDTIME KAITY; Protocol Last Admin: 09/05/23 20:35 Dose: 1 mg Trazodone HCl (Trazodone Hcl 50 Mg Tablet) 50 mg PO BEDTIME MRX1 PRN PRN Reason: Insomnia Last Admin: 09/05/23 20:36 Dose: 50 mg Allergies Allergies Allergy/AdvReac Type Severity Reaction Status Date / Time Penicillins [PCN] Allergy Mild HIVES Verified 01/26/22 11:04 amoxicillin [AMOXICILLIN] Allergy Unknown HIVES Verified 01/26/22 11:04 bee pollen [BEE STINGS] Allergy Unknown SWELLING Verified 01/26/22 11:04 bismuth subsalicylate Allergy Unknown VOMITTING Verified 01/26/22 11:04 [From PEPTO-BISMOL] Assessment & Plan Assessment & Plan (1) PTSD (post-traumatic stress disorder): Status: Acute Code(s): F43.10 - Post-traumatic stress disorder, unspecified (2) Depression: Status: Acute Code(s): F32.A - Depression, unspecified (3) Aseptic necrosis of bone of right hip: Status: Acute Code(s): M87.051 - Idiopathic aseptic necrosis of right femur (4) Opioid use disorder: Status: Acute Code(s): F11.90 - Opioid use, unspecified, uncomplicated (5) Cocaine use disorder: Status: Acute Code(s): F14.10 - Cocaine abuse, uncomplicated (6) Amphetamine use disorder, moderate: Status: Acute Code(s): F15.20 - Other stimulant dependence, uncomplicated Plan Patient is a 32-year-old female with history of PTSD, polysubstance abuse including opiates, cocaine, amphetamines, Hep C, chronic right hip necrosis who presents with SI plan to jump in front of a car. Patient is having withdrawal symptoms, not wanting to talk much and reticent on approach. However she says she wants to get back on Abilify and Zyprexa to help her back feelings go away. She denies any AVH and mostly just endorses ongoing PTSD symptoms including nightmares for which she agrees to try prazosin. Patient asks if she can rest now talk more tomorrow. Patient asked to be started on methadone. Health Information Tech reviewed medication history and patient said she wants to be back on Abilify though she could only say it could help with PTSD; also asked for Zyprexa which was started as a p.r.n. on the unit, to be increased. Hospital course: 09/03 More talkative interactive today. Still depressed but feeling a little better. Says prazosin it limited nightmares last night. Still in withdrawal but not as bad No hx of manic episodes; no AVH; significant PTSD symptoms including intermittent disssociative episodes Discussed medication history in more detail. Patient wants to get back on remeron which helped w/ insomnia; however she felt it did not adequately address PTSD and after discussing risks/side effects of medication regimens she would like to get on Prozac to which medical technical writer agreed. In addition to staying on Abilify albeit lower dose than previously, she asks for Thorazine as a p.r.n.. She says her PTSD/anxiety is typically much worse in the afternoon and says Thorazine has helped in the past. She has been taking p.r.n. Zyprexa which she does not find helpful. 2/ little better; still very anxious, cravings; increasing prozac and methadone Plan: CV Q 15 minute checks Increased to Prozac 20mg daily for ptsd/depression start Remeron 7.5mg qhs for insomnia/depression Continue Abilify 5 mg q.h.s. Continue Thorazine 100mg daily prn for mod-severe anxiety continue prazosin 1 mg q.h.s. for nightmares Increase Methadone to 45mg (continue to titrate) Patient aware of chronic right hip necrosis which she says has been going on for over a year; says she knows she needs a hip replacement XR/XR hip RT w PEL1V FINDINGS: End-stage right hip, with marked sclerosis and destruction of the right femoral head again observed. Acetabular protrusio again observed. No acute findings. Left hip intact as is the pelvis. IMPRESSION:End-stage right hip. No substantial change. XR/XR knee RT 4V FINDINGS:Diffuse osteopenia but no fracture or destructive process. No joint effusion. Joint spaces appear well preserved. No erosions. IMPRESSION: Unremarkable study past med trials recorded: Abilify 20 mg Depakote ER 250 mg Mirtazapine 7.5 mg Prazosin 1 mg q.h.s. Sumatriptan 50 mgTrazodone 100 mg Patient educated on: diagnosis, medication risk/benefits and substance abuse Informed Consent: understands Reason for continued inpatient stay Substantial Risk for: rapid decompensation Time Spent With Patient Time: Total time managing care of this patient today ____ minutes.
[2023-09-06] MEDS: chlorproMAZINE HCl 100 MG TABLET PO ×2 (10:38→19:49)
[2023-09-06] MEDS: methADONE HCl 20 MG/2 ML ORAL.CONC 5 MG PO (10:38)
[2023-09-06 17:20] VITALS: BP 132/83; PULSE 108; RESP 16; TEMP 36.3; O2SAT 96
[2023-09-06 19:49] VITALS: BP 120/83; PULSE 114
[2023-09-06] MEDS: ARIPiprazole 5 MG TABLET PO (19:49)
[2023-09-06] MEDS: Prazosin HCL 1 MG CAPSULE PO (19:49)
[2023-09-06] MEDS: traZODone HCL 50 MG TABLET PO (19:49)
[2023-09-06] MEDS: Mirtazapine 7.5 MG TABLET PO (19:49)
--- NOTE | 2023-09-07 | ECG_ITS ---
Test Reason : CHECK QTC Blood Pressure : / mmHG Vent. Rate : 105 BPM Atrial Rate : 105 BPM P-R Int : 150 ms QRS Dur : 084 ms QT Int : 348 ms P-R-T Axes : 044 076 022 degrees QTc Int : 459 ms Sinus tachycardia Possible Left atrial enlargement Borderline ECG When compared with ECG of 01-SEP-2023 13:10, T wave inversion now evident in Inferior leads Referred By: Tin [address] Electronically Signed By:João Guerin
[2023-09-07 08:07] VITALS: BP 125/77; PULSE 97; RESP 16; TEMP 36.8; O2SAT 96
[2023-09-07] MEDS: Nicotine 21 MG PATCH.TD24 TRANSDERMA (08:42)
[2023-09-07] MEDS: FLUoxetine HCl 20 MG CAPSULE PO (08:42)
[2023-09-07] MEDS: methADONE HCl 20 MG/2 ML ORAL.CONC 50 MG PO (08:43)
--- NOTE | 2023-09-07 09:30 | HO.PSYCHPN ---
Subjective Subjective Date of Service: 09/07/23 Reason For Visit: Depression/SI, opiate use disorder, polysubstance Interim History: Met with patient; discussed with team Still very anxious and depressed; finds herself struggling to interact though she is pushing herself to do so; agrees to increase Prozac Remained with some withdrawal symptoms; agrees to increase methadone Remains with cravings for cocaine; discussed possibly starting Topamax however patient agrees to hold off for now as other meds being titrated History of ADHD; patient said she is done well on Strattera and asks if she can have that discharge Doing better with sleep however and note nightmares with prazosin Mental Status Exam Mental Status Exam Narrative: Pt is alert and oriented; behavior is cooperative, more friendly and engaged, calm; patient is not in distress; dressed in casual attire with paritally buzzed hair; limp; adequate hygiene; mood is described as depressed; anxious and affect congruent; eye contact appropriate; Speech is normal rate, volume and prosody and not pressured; no psychomotor agitation/retardation present; thought process is organized and goal directed; Thought content is on tx; past trauma; otherwise pertinent to relevant topics and without any delusional content, paranoid ideations or grandiosity; denies any SI/HI. There is no evidence of perceptual disturbance. Patients insight and judgment fair Diagnostics Vital Signs (24Hr): Vital Signs - 24 hr 09/06/23 17:20 09/06/23 19:49 Temperature 97.4 F Pulse Rate 108 H 114 H Respiratory Rate 16 Blood Pressure 132/83 120/83 Pulse Oximetry 96 Oxygen Delivery Method Room Air BMI result Body Mass Index 22.7 Labs 09/01/23 09:44 09/01/23 09:44 Imaging Radiology Impressions: ITS Impressions Hip/Pelvis X-Ray 09/01/23 08:13 IMPRESSION: End-stage right hip. No substantial change. Knee X-Ray 09/01/23 08:13 IMPRESSION: Unremarkable study. Medications Medications Current Medications Acetaminophen (Acetaminophen 325 Mg Tablet) 650 mg PO Q6H PRN PRN Reason: Headache/Pain Mild Scale (1-3) Last Admin: 09/01/23 19:37 Dose: 650 mg Al Hydroxide/Mg Hydroxide (Magnesium Hydrox/Alum Hydrox 30 Ml Oral.Susp) 30 ml PO Q6H PRN PRN Reason: Heartburn/Nausea Albuterol Sulfate (Albuterol Sulfate 90 Mcg 8 Gm Inhaler) 2 puff INHALE RQ4H PRN PRN Reason: Shortness of Breath Aripiprazole (Aripiprazole 5 Mg Tablet) 5 mg PO BEDTIME [facility] Last Admin: 09/06/23 19:49 Dose: 5 mg Chlorpromazine HCl (Chlorpromazine Hcl 100 Mg Tablet) 100 mg PO BID PRN PRN Reason: moderate to severe anxiety Last Admin: 09/06/23 19:49 Dose: 100 mg Clonidine HCl (Clonidine Hcl 0.1 Mg Tablet) 0.1 mg PO TID PRN; Protocol PRN Reason: withdrawal Last Admin: 09/05/23 18:18 Dose: 0.1 mg Fluoxetine HCl (Fluoxetine Hcl 20 Mg Capsule) 20 mg PO DAILY [facility] Last Admin: 09/07/23 08:42 Dose: 20 mg Hydroxyzine HCl (Hydroxyzine Hcl 25 Mg Tablet) 25 mg PO Q6H PRN PRN Reason: Anxiety Last Admin: 09/05/23 20:36 Dose: 25 mg Magnesium Hydroxide (Milk Of Magnesia 30 Ml Oral.Susp) 30 ml PO DAILY PRN PRN Reason: Constipation Methadone HCl (Methadone Hcl 20 Mg/2 Ml Oral.Conc) 50 mg PO DAILY [facility] Last Admin: 09/07/23 08:43 Dose: 50 mg Mirtazapine (Mirtazapine 7.5 Mg Tablet) 7.5 mg PO BEDTIME [facility] Last Admin: 09/06/23 19:49 Dose: 7.5 mg Nicotine (Nicotine 21 Mg Patch.Td24) 21 mg TRANSDERMA DAILY [facility] Last Admin: 09/07/23 08:42 Dose: 21 mg Prazosin HCl (Prazosin Hcl 1 Mg Capsule) 1 mg PO BEDTIME [facility]; Protocol Last Admin: 09/06/23 19:49 Dose: 1 mg Trazodone HCl (Trazodone Hcl 50 Mg Tablet) 50 mg PO BEDTIME MRX1 PRN PRN Reason: Insomnia Last Admin: 09/06/23 19:49 Dose: 50 mg Allergies Allergies Allergy/AdvReac Type Severity Reaction Status Date / Time Penicillins [PCN] Allergy Mild HIVES Verified 01/26/22 11:04 amoxicillin [AMOXICILLIN] Allergy Unknown HIVES Verified 01/26/22 11:04 bee pollen [BEE STINGS] Allergy Unknown SWELLING Verified 01/26/22 11:04 bismuth subsalicylate Allergy Unknown VOMITTING Verified 01/26/22 11:04 [From PEPTO-BISMOL] Assessment & Plan Assessment & Plan (1) PTSD (post-traumatic stress disorder): Status: Acute Code(s): F43.10 - Post-traumatic stress disorder, unspecified (2) Depression: Status: Acute Code(s): F32.A - Depression, unspecified (3) Aseptic necrosis of bone of right hip: Status: Acute Code(s): M87.051 - Idiopathic aseptic necrosis of right femur (4) Opioid use disorder: Status: Acute Code(s): F11.90 - Opioid use, unspecified, uncomplicated (5) Cocaine use disorder: Status: Acute Code(s): F14.10 - Cocaine abuse, uncomplicated (6) Amphetamine use disorder, moderate: Status: Acute Code(s): F15.20 - Other stimulant dependence, uncomplicated Plan Patient is a 32-year-old female with history of PTSD, polysubstance abuse including opiates, cocaine, amphetamines, Hep C, chronic right hip necrosis who presents with SI plan to jump in front of a car. Patient is having withdrawal symptoms, not wanting to talk much and reticent on approach. However she says she wants to get back on Abilify and Zyprexa to help her back feelings go away. She denies any AVH and mostly just endorses ongoing PTSD symptoms including nightmares for which she agrees to try prazosin. Patient asks if she can rest now talk more tomorrow. Patient asked to be started on methadone. Artillery Officer reviewed medication history and patient said she wants to be back on Abilify though she could only say it could help with PTSD; also asked for Zyprexa which was started as a p.r.n. on the unit, to be increased. Hospital course: 09/03 More talkative interactive today. Still depressed but feeling a little better. Says prazosin it limited nightmares last night. Still in withdrawal but not as bad No hx of manic episodes; no AVH; significant PTSD symptoms including intermittent disssociative episodes Discussed medication history in more detail. Patient wants to get back on remeron which helped w/ insomnia; however she felt it did not adequately address PTSD and after discussing risks/side effects of medication regimens she would like to get on Prozac to which technical publications writer agreed. In addition to staying on Abilify albeit lower dose than previously, she asks for Thorazine as a p.r.n.. She says her PTSD/anxiety is typically much worse in the afternoon and says Thorazine has helped in the past. She has been taking p.r.n. Zyprexa which she does not find helpful. 09/06 little better; still very anxious, cravings; increasing prozac and methadone 09/07 continued struggles with anxiety and depression; wants Prozac increased to 40 mg even though this is a quick titration, patient does not want to risk being underdosed (understands risks quick titration). Discussed groups. Patient wants to go but has been struggling with anxiety. Will push herself to attend. -will consider increasing Abilify -will consider Topamax (or baclofen) at some point for cocaine cravings (no hx of glaucoma, kidney stone) Plan: CV Q 15 minute checks Increased to Prozac 40mg daily for ptsd/depression Continue Remeron 7.5mg qhs for insomnia/depression Continue Abilify 5 mg q.h.s. Continue Thorazine 100mg daily prn for mod-severe anxiety continue prazosin 1 mg q.h.s. for nightmares Increase Methadone to 60mg (continue to titrate) Patient aware of chronic right hip necrosis which she says has been going on for over a year; says she knows she needs a hip replacement XR/XR hip RT w PEL1V FINDINGS: End-stage right hip, with marked sclerosis and destruction of the right femoral head again observed. Acetabular protrusio again observed. No acute findings. Left hip intact as is the pelvis. IMPRESSION:End-stage right hip. No substantial change. XR/XR knee RT 4V FINDINGS:Diffuse osteopenia but no fracture or destructive process. No joint effusion. Joint spaces appear well preserved. No erosions. IMPRESSION: Unremarkable study past med trials recorded: Abilify 20 mg Depakote ER 250 mg Mirtazapine 7.5 mg Prazosin 1 mg q.h.s. Sumatriptan 50 mgTrazodone 100 mg Patient educated on: diagnosis, medication risk/benefits, substance abuse, therapeutic strategies and medical condition Informed Consent: understands Reason for continued inpatient stay Substantial Risk for: rapid decompensation Time Spent With Patient Time: Total time managing care of this patient today ____ minutes.
[2023-09-07] MEDS: methADONE HCl 20 MG/2 ML ORAL.CONC 10 MG PO (11:48)
[2023-09-07] MEDS: chlorproMAZINE HCl 100 MG TABLET PO (11:48)
[2023-09-07 16:20] VITALS: BP 140/82; PULSE 114; RESP 18; TEMP 36.3; O2SAT 95
[2023-09-07 19:55] VITALS: BP 118/82; PULSE 104
[2023-09-07] MEDS: Mirtazapine 7.5 MG TABLET PO (19:55)
[2023-09-07] MEDS: Prazosin HCL 1 MG CAPSULE PO (19:55)
[2023-09-07] MEDS: ARIPiprazole 5 MG TABLET PO (19:56)
[2023-09-07] MEDS: traZODone HCL 50 MG TABLET PO (19:56)
[2023-09-08 08:07] VITALS: BP 113/73; PULSE 90; RESP 16; TEMP 36.2; O2SAT 98
[2023-09-08] MEDS: FLUoxetine HCl 20 MG CAPSULE 40 MG PO (08:24)
[2023-09-08] MEDS: methADONE HCl 20 MG/2 ML ORAL.CONC 60 MG PO (08:24)
[2023-09-08] MEDS: Nicotine 21 MG PATCH.TD24 TRANSDERMA (08:25)
--- NOTE | 2023-09-08 09:41 | HO.PSYCHPN ---
Subjective Subjective Date of Service: 09/08/23 Reason For Visit: Depression/SI, opiate use disorder, polysubstance Interim History: met with patient; discussed with team Still anxious but overall feels that she is doing better. Still sleeping well and no nightmares. Flashbacks during the day but she says she is coping with it. Feels actually a little happier today which she was grateful for. Discussed history of ADHD and patient is hoping to get back on Strattera though it does not look like it is available in the hospital. Mental Status Exam Mental Status Exam Narrative: Pt is alert and oriented; behavior is cooperative, friendly and engaged, calm; patient is not in distress; dressed in casual attire with paritally buzzed hair; limp; adequate hygiene; mood is described as a little happier and affect congruent, more calm, brighter; eye contact appropriate; Speech is normal rate, volume and prosody and not pressured; no psychomotor agitation/retardation present; thought process is organized and goal directed; Thought content is on tx; intermittently past trauma; otherwise pertinent to relevant topics and without any delusional content, paranoid ideations or grandiosity; denies any SI/HI. There is no evidence of perceptual disturbance. Patients insight and judgment fair Diagnostics Vital Signs (24Hr): Vital Signs - 24 hr 09/07/23 16:20 09/07/23 19:55 09/08/23 08:07 Temperature 97.4 F 97.2 F Pulse Rate 114 H 104 H 90 Respiratory Rate 18 16 Blood Pressure 140/82 H 118/82 113/73 Pulse Oximetry 95 98 Oxygen Delivery Method Room Air Room Air BMI result Body Mass Index 22.7 Labs 09/01/23 09:44 09/01/23 09:44 Imaging Radiology Impressions: ITS Impressions Hip/Pelvis X-Ray 09/01/23 08:13 IMPRESSION: End-stage right hip. No substantial change. Knee X-Ray 09/01/23 08:13 IMPRESSION: Unremarkable study. Medications Medications Current Medications Acetaminophen (Acetaminophen 325 Mg Tablet) 650 mg PO Q6H PRN PRN Reason: Headache/Pain Mild Scale (1-3) Last Admin: 09/01/23 19:37 Dose: 650 mg Al Hydroxide/Mg Hydroxide (Magnesium Hydrox/Alum Hydrox 30 Ml Oral.Susp) 30 ml PO Q6H PRN PRN Reason: Heartburn/Nausea Albuterol Sulfate (Albuterol Sulfate 90 Mcg 8 Gm Inhaler) 2 puff INHALE RQ4H PRN PRN Reason: Shortness of Breath Aripiprazole (Aripiprazole 5 Mg Tablet) 5 mg PO BEDTIME [facility] Last Admin: 09/07/23 19:56 Dose: 5 mg Benztropine Mesylate (Benztropine Mesylate 0.5 Mg Tablet) 0.5 mg PO TID PRN PRN Reason: Extrapyramidal Effects Chlorpromazine HCl (Chlorpromazine Hcl 100 Mg Tablet) 100 mg PO BID PRN PRN Reason: moderate to severe anxiety Last Admin: 09/07/23 11:48 Dose: 100 mg Clonidine HCl (Clonidine Hcl 0.1 Mg Tablet) 0.1 mg PO TID PRN; Protocol PRN Reason: withdrawal Last Admin: 09/05/23 18:18 Dose: 0.1 mg Fluoxetine HCl (Fluoxetine Hcl 20 Mg Capsule) 40 mg PO DAILY [facility] Last Admin: 09/08/23 08:24 Dose: 40 mg Hydroxyzine HCl (Hydroxyzine Hcl 25 Mg Tablet) 25 mg PO Q6H PRN PRN Reason: Anxiety Last Admin: 09/05/23 20:36 Dose: 25 mg Magnesium Hydroxide (Milk Of Magnesia 30 Ml Oral.Susp) 30 ml PO DAILY PRN PRN Reason: Constipation Methadone HCl (Methadone Hcl 20 Mg/2 Ml Oral.Conc) 60 mg PO DAILY [facility] Last Admin: 09/08/23 08:24 Dose: 60 mg Mirtazapine (Mirtazapine 7.5 Mg Tablet) 7.5 mg PO BEDTIME [facility] Last Admin: 09/07/23 19:55 Dose: 7.5 mg Nicotine (Nicotine 21 Mg Patch.Td24) 21 mg TRANSDERMA DAILY [facility] Last Admin: 09/08/23 08:25 Dose: 21 mg Prazosin HCl (Prazosin Hcl 1 Mg Capsule) 1 mg PO BEDTIME [facility]; Protocol Last Admin: 09/07/23 19:55 Dose: 1 mg Trazodone HCl (Trazodone Hcl 50 Mg Tablet) 50 mg PO BEDTIME MRX1 PRN PRN Reason: Insomnia Last Admin: 09/07/23 19:56 Dose: 50 mg Allergies Allergies Allergy/AdvReac Type Severity Reaction Status Date / Time Penicillins [PCN] Allergy Mild HIVES Verified 01/26/22 11:04 amoxicillin [AMOXICILLIN] Allergy Unknown HIVES Verified 01/26/22 11:04 bee pollen [BEE STINGS] Allergy Unknown SWELLING Verified 01/26/22 11:04 bismuth subsalicylate Allergy Unknown VOMITTING Verified 01/26/22 11:04 [From PEPTO-BISMOL] Assessment & Plan Assessment & Plan (1) PTSD (post-traumatic stress disorder): Status: Acute Code(s): F43.10 - Post-traumatic stress disorder, unspecified (2) Depression: Status: Acute Code(s): F32.A - Depression, unspecified (3) Aseptic necrosis of bone of right hip: Status: Acute Code(s): M87.051 - Idiopathic aseptic necrosis of right femur (4) Opioid use disorder: Status: Acute Code(s): F11.90 - Opioid use, unspecified, uncomplicated (5) Cocaine use disorder: Status: Acute Code(s): F14.10 - Cocaine abuse, uncomplicated (6) Amphetamine use disorder, moderate: Status: Acute Code(s): F15.20 - Other stimulant dependence, uncomplicated Plan Patient is a 32-year-old female with history of PTSD, polysubstance abuse including opiates, cocaine, amphetamines, Hep C, chronic right hip necrosis who presents with SI plan to jump in front of a car. Patient is having withdrawal symptoms, not wanting to talk much and reticent on approach. However she says she wants to get back on Abilify and Zyprexa to help her back feelings go away. She denies any AVH and mostly just endorses ongoing PTSD symptoms including nightmares for which she agrees to try prazosin. Patient asks if she can rest now talk more tomorrow. Patient asked to be started on methadone. Marketing Agent reviewed medication history and patient said she wants to be back on Abilify though she could only say it could help with PTSD; also asked for Zyprexa which was started as a p.r.n. on the unit, to be increased. Hospital course: 09/03 More talkative interactive today. Still depressed but feeling a little better. Says prazosin it limited nightmares last night. Still in withdrawal but not as bad No hx of manic episodes; no AVH; significant PTSD symptoms including intermittent disssociative episodes Discussed medication history in more detail. Patient wants to get back on remeron which helped w/ insomnia; however she felt it did not adequately address PTSD and after discussing risks/side effects of medication regimens she would like to get on Prozac to which junior technical writer agreed. In addition to staying on Abilify albeit lower dose than previously, she asks for Thorazine as a p.r.n.. She says her PTSD/anxiety is typically much worse in the afternoon and says Thorazine has helped in the past. She has been taking p.r.n. Zyprexa which she does not find helpful. 2 little better; still very anxious, cravings; increasing prozac and methadone 09/07 continued struggles with anxiety and depression; wants Prozac increased to 40 mg even though this is a quick titration, patient does not want to risk being underdosed (understands risks quick titration). Discussed groups. Patient wants to go but has been struggling with anxiety. Will push herself to attend. -will consider increasing Abilify -will consider Topamax (or baclofen) at some point for cocaine cravings (no hx of glaucoma, kidney stone) 09/08 patient remains improving, attending groups, in good behavior and impulse control, and appropriate with peers and staff. Feels that her mood is getting little better. Anxiety a little less. Still PTSD flashbacks but she finds she is able to cope right now. Very hopeful about getting into a program. Still lot of cravings for opiates and feeling some withdrawal Plan: CV Q 15 minute checks Increased to Prozac 40mg daily for ptsd/depression Continue Remeron 7.5mg qhs for insomnia/depression Continue Abilify 5 mg q.h.s. Continue Thorazine 100mg daily prn for mod-severe anxiety continue prazosin 1 mg q.h.s. for nightmares Increase Methadone to 60mg (continue to titrate) Patient aware of chronic right hip necrosis which she says has been going on for over a year; says she knows she needs a hip replacement XR/XR hip RT w PEL1V FINDINGS: End-stage right hip, with marked sclerosis and destruction of the right femoral head again observed. Acetabular protrusio again observed. No acute findings. Left hip intact as is the pelvis. IMPRESSION:End-stage right hip. No substantial change. XR/XR knee RT 4V FINDINGS:Diffuse osteopenia but no fracture or destructive process. No joint effusion. Joint spaces appear well preserved. No erosions. IMPRESSION: Unremarkable study past med trials recorded: Abilify 20 mg Depakote ER 250 mg Mirtazapine 7.5 mg Prazosin 1 mg q.h.s. Sumatriptan 50 mgTrazodone 100 mg Patient educated on: diagnosis, medication risk/benefits, substance abuse and therapeutic strategies Informed Consent: understands Reason for continued inpatient stay Substantial Risk for: stable for discharge Time Spent With Patient Time: Total time managing care of this patient today ____ minutes.
[2023-09-08] MEDS: chlorproMAZINE HCl 100 MG TABLET PO (11:24)
[2023-09-08] MEDS: Metoprolol Succinate ER 25 MG TAB.ER.24H PO (12:08)
[2023-09-08] MEDS: Milk of Magnesia 30 ML ORAL.SUSP PO (12:09)
[2023-09-08 16:43] VITALS: BP 107/69; PULSE 97; RESP 16; TEMP 36.9; O2SAT 97
[2023-09-08] MEDS: Prazosin HCL 1 MG CAPSULE PO (21:09)
[2023-09-08] MEDS: ARIPiprazole 5 MG TABLET PO (21:09)
[2023-09-08] MEDS: Mirtazapine 7.5 MG TABLET PO (21:10)
[2023-09-08] MEDS: traZODone HCL 50 MG TABLET PO (21:10)
[2023-09-09 07:00] VITALS: BMI 26.9
[2023-09-09 08:10] VITALS: BP 104/56; PULSE 85; RESP 16; TEMP 36.2; O2SAT 97
[2023-09-09] MEDS: FLUoxetine HCl 20 MG CAPSULE 40 MG PO (10:17)
[2023-09-09] MEDS: methADONE HCl 20 MG/2 ML ORAL.CONC 60 MG PO (10:17)
[2023-09-09] MEDS: chlorproMAZINE HCl 100 MG TABLET PO ×2 (10:18→16:54)
[2023-09-09] MEDS: Metoprolol Succinate ER 25 MG TAB.ER.24H PO (12:59)
[2023-09-09] MEDS: methADONE HCl 20 MG/2 ML ORAL.CONC 10 MG PO (12:59)
--- NOTE | 2023-09-09 17:46 | HO.PSYCHPN ---
Subjective Subjective Date of Service: 09/09/23 Reason For Visit: Depression/SI, opiate use disorder, polysubstance Interim History: Met with patient; discussed with team Overall feels like she is doing better but still struggling with cravings and asks if methadone can be increased further. Says she used to be on 120 mg. Operations Research Scientist agrees to continue titration Mental Status Exam Mental Status Exam Narrative: Pt is alert and oriented; behavior is cooperative, friendly and engaged, calm; patient is not in distress; dressed in casual attire with paritally buzzed hair; limp; adequate hygiene; mood is described as ok and affect congruent, more calm, brighter; eye contact appropriate; Speech is normal rate, volume and prosody and not pressured; no psychomotor agitation/retardation present; thought process is organized and goal directed; Thought content is on tx; intermittently past trauma; otherwise pertinent to relevant topics and without any delusional content, paranoid ideations or grandiosity; denies any SI/HI. There is no evidence of perceptual disturbance. Patients insight and judgment fair Diagnostics Vital Signs (24Hr): Vital Signs - 24 hr 09/09/23 08:10 Temperature 97.2 F Pulse Rate 85 Respiratory Rate 16 Blood Pressure 104/56 L Pulse Oximetry 97 Oxygen Delivery Method Room Air BMI result Body Mass Index 26.9 Labs 09/01/23 09:44 09/01/23 09:44 Imaging Radiology Impressions: ITS Impressions Hip/Pelvis X-Ray 09/01/23 08:13 IMPRESSION: End-stage right hip. No substantial change. Knee X-Ray 09/01/23 08:13 IMPRESSION: Unremarkable study. Medications Medications Current Medications Acetaminophen (Acetaminophen 325 Mg Tablet) 650 mg PO Q6H PRN PRN Reason: Headache/Pain Mild Scale (1-3) Last Admin: 09/01/23 19:37 Dose: 650 mg Al Hydroxide/Mg Hydroxide (Magnesium Hydrox/Alum Hydrox 30 Ml Oral.Susp) 30 ml PO Q6H PRN PRN Reason: Heartburn/Nausea Albuterol Sulfate (Albuterol Sulfate 90 Mcg 8 Gm Inhaler) 2 puff INHALE RQ4H PRN PRN Reason: Shortness of Breath Aripiprazole (Aripiprazole 5 Mg Tablet) 5 mg PO BEDTIME [facility] Last Admin: 09/08/23 21:09 Dose: 5 mg Benztropine Mesylate (Benztropine Mesylate 0.5 Mg Tablet) 0.5 mg PO TID PRN PRN Reason: Extrapyramidal Effects Chlorpromazine HCl (Chlorpromazine Hcl 100 Mg Tablet) 100 mg PO BID PRN PRN Reason: moderate to severe anxiety Last Admin: 09/09/23 16:54 Dose: 100 mg Clonidine HCl (Clonidine Hcl 0.1 Mg Tablet) 0.1 mg PO TID PRN; Protocol PRN Reason: withdrawal Last Admin: 09/05/23 18:18 Dose: 0.1 mg Fluoxetine HCl (Fluoxetine Hcl 20 Mg Capsule) 40 mg PO DAILY [facility] Last Admin: 09/09/23 10:17 Dose: 40 mg Hydroxyzine HCl (Hydroxyzine Hcl 25 Mg Tablet) 25 mg PO Q6H PRN PRN Reason: Anxiety Last Admin: 09/05/23 20:36 Dose: 25 mg Magnesium Hydroxide (Milk Of Magnesia 30 Ml Oral.Susp) 30 ml PO DAILY PRN PRN Reason: Constipation Last Admin: 09/08/23 12:09 Dose: 30 ml Methadone HCl (Methadone Hcl 20 Mg/2 Ml Oral.Conc) 70 mg PO DAILY [facility] Metoprolol Succinate (Metoprolol Succinate Er 25 Mg Tab.Er.24h) 25 mg PO DAILY [facility]; Protocol Last Admin: 09/09/23 12:59 Dose: 25 mg Mirtazapine (Mirtazapine 7.5 Mg Tablet) 7.5 mg PO BEDTIME [facility] Last Admin: 09/08/23 21:10 Dose: 7.5 mg Nicotine (Nicotine 21 Mg Patch.Td24) 21 mg TRANSDERMA DAILY [facility] Last Admin: 09/09/23 10:19 Dose: Not Given Prazosin HCl (Prazosin Hcl 1 Mg Capsule) 1 mg PO BEDTIME [facility]; Protocol Last Admin: 09/08/23 21:09 Dose: 1 mg Trazodone HCl (Trazodone Hcl 50 Mg Tablet) 50 mg PO BEDTIME MRX1 PRN PRN Reason: Insomnia Last Admin: 09/08/23 21:10 Dose: 50 mg Allergies Allergies Allergy/AdvReac Type Severity Reaction Status Date / Time Penicillins [PCN] Allergy Mild HIVES Verified 01/26/22 11:04 amoxicillin [AMOXICILLIN] Allergy Unknown HIVES Verified 01/26/22 11:04 bee pollen [BEE STINGS] Allergy Unknown SWELLING Verified 01/26/22 11:04 bismuth subsalicylate Allergy Unknown VOMITTING Verified 01/26/22 11:04 [From PEPTO-BISMOL] Assessment & Plan Assessment & Plan (1) PTSD (post-traumatic stress disorder): Status: Acute Code(s): F43.10 - Post-traumatic stress disorder, unspecified (2) Depression: Status: Acute Code(s): F32.A - Depression, unspecified (3) Aseptic necrosis of bone of right hip: Status: Acute Code(s): M87.051 - Idiopathic aseptic necrosis of right femur (4) Opioid use disorder: Status: Acute Code(s): F11.90 - Opioid use, unspecified, uncomplicated (5) Cocaine use disorder: Status: Acute Code(s): F14.10 - Cocaine abuse, uncomplicated (6) Amphetamine use disorder, moderate: Status: Acute Code(s): F15.20 - Other stimulant dependence, uncomplicated Plan Patient is a 32-year-old female with history of PTSD, polysubstance abuse including opiates, cocaine, amphetamines, Hep C, chronic right hip necrosis who presents with SI plan to jump in front of a car. Patient is having withdrawal symptoms, not wanting to talk much and reticent on approach. However she says she wants to get back on Abilify and Zyprexa to help her back feelings go away. She denies any AVH and mostly just endorses ongoing PTSD symptoms including nightmares for which she agrees to try prazosin. Patient asks if she can rest now talk more tomorrow. Patient asked to be started on methadone. Operations Research Scientist reviewed medication history and patient said she wants to be back on Abilify though she could only say it could help with PTSD; also asked for Zyprexa which was started as a p.r.n. on the unit, to be increased. Hospital course: 09/03 More talkative interactive today. Still depressed but feeling a little better. Says prazosin it limited nightmares last night. Still in withdrawal but not as bad No hx of manic episodes; no AVH; significant PTSD symptoms including intermittent disssociative episodes Discussed medication history in more detail. Patient wants to get back on remeron which helped w/ insomnia; however she felt it did not adequately address PTSD and after discussing risks/side effects of medication regimens she would like to get on Prozac to which senior underwriter agreed. In addition to staying on Abilify albeit lower dose than previously, she asks for Thorazine as a p.r.n.. She says her PTSD/anxiety is typically much worse in the afternoon and says Thorazine has helped in the past. She has been taking p.r.n. Zyprexa which she does not find helpful. 09/06 little better; still very anxious, cravings; increasing prozac and methadone 09/07 continued struggles with anxiety and depression; wants Prozac increased to 40 mg even though this is a quick titration, patient does not want to risk being underdosed (understands risks quick titration). Discussed groups. Patient wants to go but has been struggling with anxiety. Will push herself to attend. -will consider increasing Abilify -will consider Topamax (or baclofen) at some point for cocaine cravings (no hx of glaucoma, kidney stone) 09/08 patient remains improving, attending groups, in good behavior and impulse control, and appropriate with peers and staff. Feels that her mood is getting little better. Anxiety a little less. Still PTSD flashbacks but she finds she is able to cope right now. Very hopeful about getting into a program. Still lot of cravings for opiates and feeling some withdrawal 09/09 EKG/QTC WNL; will continue to titrate Haldol; patient remains engaged in treatment, getting along well with others. Again discussed metoprolol which she says she did not get yesterday but has been on in the past and wants to get back on it for daytime anxiety Plan: CV Q 15 minute checks Start metoprolol ER 25 mg daily Continue Prozac 40mg daily for ptsd/depression Continue Remeron 7.5mg qhs for insomnia/depression Continue Abilify 5 mg q.h.s. Continue Thorazine 100mg daily prn for mod-severe anxiety continue prazosin 1 mg q.h.s. for nightmares Increase Methadone to 70mg (continue to titrate) Patient aware of chronic right hip necrosis which she says has been going on for over a year; says she knows she needs a hip replacement XR/XR hip RT w PEL1V FINDINGS: End-stage right hip, with marked sclerosis and destruction of the right femoral head again observed. Acetabular protrusio again observed. No acute findings. Left hip intact as is the pelvis. IMPRESSION:End-stage right hip. No substantial change. XR/XR knee RT 4V FINDINGS:Diffuse osteopenia but no fracture or destructive process. No joint effusion. Joint spaces appear well preserved. No erosions. IMPRESSION: Unremarkable study past med trials recorded: Abilify 20 mg Depakote ER 250 mg Mirtazapine 7.5 mg Prazosin 1 mg q.h.s. Sumatriptan 50 mgTrazodone 100 mg Patient educated on: diagnosis, medication risk/benefits and substance abuse Informed Consent: understands Reason for continued inpatient stay Substantial Risk for: rapid decompensation Time Spent With Patient Time: Total time managing care of this patient today ____ minutes.
[2023-09-09 18:00] VITALS: BP 110/60; PULSE 89; RESP 18; TEMP 36.6; O2SAT 98
[2023-09-09] MEDS: Prazosin HCL 1 MG CAPSULE PO (19:43)
[2023-09-09] MEDS: traZODone HCL 50 MG TABLET PO (19:43)
[2023-09-09] MEDS: ARIPiprazole 5 MG TABLET PO (19:43)
[2023-09-09] MEDS: hydrOXYzine HCL 25 MG TABLET PO (19:43)
[2023-09-09] MEDS: cloNIDine HCL 0.1 MG TABLET PO (19:43)
[2023-09-09] MEDS: Mirtazapine 7.5 MG TABLET PO (21:03)
[2023-09-10 08:40] VITALS: BP 111/72; PULSE 89; RESP 16; TEMP 36.2; O2SAT 95
[2023-09-10] MEDS: FLUoxetine HCl 20 MG CAPSULE 40 MG PO (08:41)
[2023-09-10] MEDS: methADONE HCl 20 MG/2 ML ORAL.CONC 70 MG PO (08:42)
[2023-09-10] MEDS: Metoprolol Succinate ER 25 MG TAB.ER.24H PO (08:42)
--- NOTE | 2023-09-10 09:52 | HO.PSYCHPN ---
Subjective Subjective Date of Service: 09/10/23 Reason For Visit: Depression/SI, opiate use disorder, polysubstance Interim History: met with patient; discussed with team remains doing well. Discussed progress and she says she actually feels overall happier. Still anxiety but says that's less to. Discussed nature of anxiety and it's relation to PTSD and pt understands it resolves slowly and with therapy. She says she's not had therapy since a child and would like to now, feeling it's importance in her continued recovery. She feels good about med regimen, dosing and feels stable with which director underwriter sales agrees. Mental Status Exam Mental Status Exam Narrative: Pt is alert and oriented; behavior is cooperative, friendly and engaged, calm; patient is not in distress; dressed in casual attire with paritally buzzed hair; limp; adequate hygiene; mood is described as happier and affect congruent, more calm, brighter; eye contact appropriate; Speech is normal rate, volume and prosody and not pressured; no psychomotor agitation/retardation present; thought process is organized and goal directed; Thought content is on tx; intermittently past trauma; otherwise pertinent to relevant topics and without any delusional content, paranoid ideations or grandiosity; denies any SI/HI. There is no evidence of perceptual disturbance. Patients insight and judgment fair Diagnostics Vital Signs (24Hr): Vital Signs - 24 hr 09/09/23 18:00 09/10/23 08:40 Temperature 97.8 F 97.2 F Pulse Rate 89 89 Respiratory Rate 18 16 Blood Pressure 110/60 111/72 Pulse Oximetry 98 95 Oxygen Delivery Method Room Air Room Air BMI result Body Mass Index 26.9 Labs 09/01/23 09:44 09/01/23 09:44 Imaging Radiology Impressions: ITS Impressions Hip/Pelvis X-Ray 09/01/23 08:13 IMPRESSION: End-stage right hip. No substantial change. Knee X-Ray 09/01/23 08:13 IMPRESSION: Unremarkable study. Medications Medications Current Medications Acetaminophen (Acetaminophen 325 Mg Tablet) 650 mg PO Q6H PRN PRN Reason: Headache/Pain Mild Scale (1-3) Last Admin: 09/01/23 19:37 Dose: 650 mg Al Hydroxide/Mg Hydroxide (Magnesium Hydrox/Alum Hydrox 30 Ml Oral.Susp) 30 ml PO Q6H PRN PRN Reason: Heartburn/Nausea Albuterol Sulfate (Albuterol Sulfate 90 Mcg 8 Gm Inhaler) 2 puff INHALE RQ4H PRN PRN Reason: Shortness of Breath Aripiprazole (Aripiprazole 5 Mg Tablet) 5 mg PO BEDTIME [facility] Last Admin: 09/09/23 19:43 Dose: 5 mg Benztropine Mesylate (Benztropine Mesylate 0.5 Mg Tablet) 0.5 mg PO TID PRN PRN Reason: Extrapyramidal Effects Chlorpromazine HCl (Chlorpromazine Hcl 100 Mg Tablet) 100 mg PO BID PRN PRN Reason: moderate to severe anxiety Last Admin: 09/09/23 16:54 Dose: 100 mg Clonidine HCl (Clonidine Hcl 0.1 Mg Tablet) 0.1 mg PO TID PRN; Protocol PRN Reason: withdrawal Last Admin: 09/09/23 19:43 Dose: 0.1 mg Fluoxetine HCl (Fluoxetine Hcl 20 Mg Capsule) 40 mg PO DAILY [facility] Last Admin: 09/10/23 08:41 Dose: 40 mg Hydroxyzine HCl (Hydroxyzine Hcl 25 Mg Tablet) 25 mg PO Q6H PRN PRN Reason: Anxiety Last Admin: 09/09/23 19:43 Dose: 25 mg Magnesium Hydroxide (Milk Of Magnesia 30 Ml Oral.Susp) 30 ml PO DAILY PRN PRN Reason: Constipation Last Admin: 09/08/23 12:09 Dose: 30 ml Methadone HCl (Methadone Hcl 20 Mg/2 Ml Oral.Conc) 70 mg PO DAILY [facility] Last Admin: 09/10/23 08:42 Dose: 70 mg Metoprolol Succinate (Metoprolol Succinate Er 25 Mg Tab.Er.24h) 25 mg PO DAILY [facility]; Protocol Last Admin: 09/10/23 08:42 Dose: 25 mg Mirtazapine (Mirtazapine 7.5 Mg Tablet) 7.5 mg PO BEDTIME [facility] Last Admin: 09/09/23 21:03 Dose: 7.5 mg Nicotine (Nicotine 21 Mg Patch.Td24) 21 mg TRANSDERMA DAILY [facility] Last Admin: 09/10/23 08:46 Dose: Not Given Prazosin HCl (Prazosin Hcl 1 Mg Capsule) 1 mg PO BEDTIME [facility]; Protocol Last Admin: 09/09/23 19:43 Dose: 1 mg Trazodone HCl (Trazodone Hcl 50 Mg Tablet) 50 mg PO BEDTIME MRX1 PRN PRN Reason: Insomnia Last Admin: 09/09/23 19:43 Dose: 50 mg Allergies Allergies Allergy/AdvReac Type Severity Reaction Status Date / Time Penicillins [PCN] Allergy Mild HIVES Verified 01/26/22 11:04 amoxicillin [AMOXICILLIN] Allergy Unknown HIVES Verified 01/26/22 11:04 bee pollen [BEE STINGS] Allergy Unknown SWELLING Verified 01/26/22 11:04 bismuth subsalicylate Allergy Unknown VOMITTING Verified 01/26/22 11:04 [From PEPTO-BISMOL] Assessment & Plan Assessment & Plan (1) PTSD (post-traumatic stress disorder): Status: Acute Code(s): F43.10 - Post-traumatic stress disorder, unspecified (2) Depression: Status: Acute Code(s): F32.A - Depression, unspecified (3) Aseptic necrosis of bone of right hip: Status: Acute Code(s): M87.051 - Idiopathic aseptic necrosis of right femur (4) Opioid use disorder: Status: Acute Code(s): F11.90 - Opioid use, unspecified, uncomplicated (5) Cocaine use disorder: Status: Acute Code(s): F14.10 - Cocaine abuse, uncomplicated (6) Amphetamine use disorder, moderate: Status: Acute Code(s): F15.20 - Other stimulant dependence, uncomplicated Plan Patient is a 32-year-old female with history of PTSD, polysubstance abuse including opiates, cocaine, amphetamines, Hep C, chronic right hip necrosis who presents with SI plan to jump in front of a car. Patient is having withdrawal symptoms, not wanting to talk much and reticent on approach. However she says she wants to get back on Abilify and Zyprexa to help her back feelings go away. She denies any AVH and mostly just endorses ongoing PTSD symptoms including nightmares for which she agrees to try prazosin. Patient asks if she can rest now talk more tomorrow. Patient asked to be started on methadone. Solutions Market Consultant reviewed medication history and patient said she wants to be back on Abilify though she could only say it could help with PTSD; also asked for Zyprexa which was started as a p.r.n. on the unit, to be increased. Hospital course: 2/9 More talkative interactive today. Still depressed but feeling a little better. Says prazosin it limited nightmares last night. Still in withdrawal but not as bad No hx of manic episodes; no AVH; significant PTSD symptoms including intermittent disssociative episodes Discussed medication history in more detail. Patient wants to get back on remeron which helped w/ insomnia; however she felt it did not adequately address PTSD and after discussing risks/side effects of medication regimens she would like to get on Prozac to which director underwriter sales agreed. In addition to staying on Abilify albeit lower dose than previously, she asks for Thorazine as a p.r.n.. She says her PTSD/anxiety is typically much worse in the afternoon and says Thorazine has helped in the past. She has been taking p.r.n. Zyprexa which she does not find helpful. 09/06 little better; still very anxious, cravings; increasing prozac and methadone 09/07 continued struggles with anxiety and depression; wants Prozac increased to 40 mg even though this is a quick titration, patient does not want to risk being underdosed (understands risks quick titration). Discussed groups. Patient wants to go but has been struggling with anxiety. Will push herself to attend. -will consider increasing Abilify -will consider Topamax (or baclofen) at some point for cocaine cravings (no hx of glaucoma, kidney stone) 09/08 patient remains improving, attending groups, in good behavior and impulse control, and appropriate with peers and staff. Feels that her mood is getting little better. Anxiety a little less. Still PTSD flashbacks but she finds she is able to cope right now. Very hopeful about getting into a program. Still lot of cravings for opiates and feeling some withdrawal 09/09 EKG/QTC WNL; will continue to titrate Haldol; patient remains engaged in treatment, getting along well with others. Again discussed metoprolol which she says she did not get yesterday but has been on in the past and wants to get back on it for daytime anxiety 09/10 doing well; friendly, engaged in treatment, insightful...making good use of resources available to her on the unit. Very much wants a program and sobriety. Feels good about current med regimen. Sleeping and eating well. Since medication changes made, patients mood and anxiety remain improved and director underwriter sales agrees that patient is stable on current medication regimen. Plan: CV Q 15 minute checks Start metoprolol ER 25 mg daily Continue Prozac 40mg daily for ptsd/depression Continue Remeron 7.5mg qhs for insomnia/depression Continue Abilify 5 mg q.h.s. Continue Thorazine 100mg daily prn for mod-severe anxiety continue prazosin 1 mg q.h.s. for nightmares Increase Methadone to 70mg (continue to titrate) Patient aware of chronic right hip necrosis which she says has been going on for over a year; says she knows she needs a hip replacement XR/XR hip RT w PEL1V FINDINGS: End-stage right hip, with marked sclerosis and destruction of the right femoral head again observed. Acetabular protrusio again observed. No acute findings. Left hip intact as is the pelvis. IMPRESSION:End-stage right hip. No substantial change. XR/XR knee RT 4V FINDINGS:Diffuse osteopenia but no fracture or destructive process. No joint effusion. Joint spaces appear well preserved. No erosions. IMPRESSION: Unremarkable study past med trials recorded: Abilify 20 mg Depakote ER 250 mg Mirtazapine 7.5 mg Prazosin 1 mg q.h.s. Sumatriptan 50 mgTrazodone 100 mg Patient educated on: diagnosis, medication risk/benefits, substance abuse and therapeutic strategies Informed Consent: understands Reason for continued inpatient stay Substantial Risk for: stable for discharge Time Spent With Patient Time: Total time managing care of this patient today ____ minutes.
[2023-09-10] MEDS: chlorproMAZINE HCl 100 MG TABLET PO (12:55)
[2023-09-10] MEDS: traZODone HCL 50 MG TABLET PO (20:46)
[2023-09-10] MEDS: Prazosin HCL 1 MG CAPSULE PO (20:46)
[2023-09-10] MEDS: Mirtazapine 7.5 MG TABLET PO (20:46)
[2023-09-10] MEDS: hydrOXYzine HCL 25 MG TABLET PO (20:46)
[2023-09-10] MEDS: ARIPiprazole 5 MG TABLET PO (20:46)
[2023-09-11 08:30] VITALS: BP 119/78; PULSE 102; RESP 16; TEMP 36.4; O2SAT 95
[2023-09-11] MEDS: Metoprolol Succinate ER 25 MG TAB.ER.24H PO (08:34)
[2023-09-11] MEDS: FLUoxetine HCl 20 MG CAPSULE 40 MG PO (08:34)
[2023-09-11] MEDS: methADONE HCl 20 MG/2 ML ORAL.CONC 70 MG PO (08:34)
--- NOTE | 2023-09-11 08:35 | HO.PSYCHPN ---
Subjective Subjective Date of Service: 09/11/23 Reason For Visit: Depression/SI, opiate use disorder, polysubstance Subjective Notes: Conditional Voluntary Interim History: Patient was seen and discussed in rounds today. Records and plans were reviewed. She is doing better has made progress. She is waiting for placement at [facility]. She continues to be guarded, somewhat labile and irritable at times. No complaints or side effects. She continues to be on 5 minute checks. No changes were made today Review of Systems Review of Systems Yes all other systems are reviewed and are negative Mental Status Exam Mental Status Exam Narrative: In today's visit she is alert, oriented and pleasant. Normal speech. Moderate eye contact. Appropriate affect. No signs of psychosis. Cognitively intact. No SI. No changes were made today Diagnostics Vital Signs (24Hr): Vital Signs - 24 hr 09/10/23 08:40 Temperature 97.2 F Pulse Rate 89 Respiratory Rate 16 Blood Pressure 111/72 Pulse Oximetry 95 Oxygen Delivery Method Room Air BMI result Body Mass Index 26.9 Labs 09/01/23 09:44 09/01/23 09:44 Imaging Radiology Impressions: ITS Impressions Hip/Pelvis X-Ray 09/01/23 08:13 IMPRESSION: End-stage right hip. No substantial change. Knee X-Ray 09/01/23 08:13 IMPRESSION: Unremarkable study. Medications Medications Current Medications Acetaminophen (Acetaminophen 325 Mg Tablet) 650 mg PO Q6H PRN PRN Reason: Headache/Pain Mild Scale (1-3) Last Admin: 09/01/23 19:37 Dose: 650 mg Al Hydroxide/Mg Hydroxide (Magnesium Hydrox/Alum Hydrox 30 Ml Oral.Susp) 30 ml PO Q6H PRN PRN Reason: Heartburn/Nausea Albuterol Sulfate (Albuterol Sulfate 90 Mcg 8 Gm Inhaler) 2 puff INHALE RQ4H PRN PRN Reason: Shortness of Breath Aripiprazole (Aripiprazole 5 Mg Tablet) 5 mg PO BEDTIME KAITY Last Admin: 09/10/23 20:46 Dose: 5 mg Benztropine Mesylate (Benztropine Mesylate 0.5 Mg Tablet) 0.5 mg PO TID PRN PRN Reason: Extrapyramidal Effects Chlorpromazine HCl (Chlorpromazine Hcl 100 Mg Tablet) 100 mg PO BID PRN PRN Reason: moderate to severe anxiety Last Admin: 09/10/23 12:55 Dose: 100 mg Clonidine HCl (Clonidine Hcl 0.1 Mg Tablet) 0.1 mg PO TID PRN; Protocol PRN Reason: withdrawal Last Admin: 09/09/23 19:43 Dose: 0.1 mg Fluoxetine HCl (Fluoxetine Hcl 20 Mg Capsule) 40 mg PO DAILY KAITY Last Admin: 09/10/23 08:41 Dose: 40 mg Hydroxyzine HCl (Hydroxyzine Hcl 25 Mg Tablet) 25 mg PO Q6H PRN PRN Reason: Anxiety Last Admin: 09/10/23 20:46 Dose: 25 mg Magnesium Hydroxide (Milk Of Magnesia 30 Ml Oral.Susp) 30 ml PO DAILY PRN PRN Reason: Constipation Last Admin: 09/08/23 12:09 Dose: 30 ml Methadone HCl (Methadone Hcl 20 Mg/2 Ml Oral.Conc) 70 mg PO DAILY KAITY Last Admin: 09/10/23 08:42 Dose: 70 mg Metoprolol Succinate (Metoprolol Succinate Er 25 Mg Tab.Er.24h) 25 mg PO DAILY KAITY; Protocol Last Admin: 09/10/23 08:42 Dose: 25 mg Mirtazapine (Mirtazapine 7.5 Mg Tablet) 7.5 mg PO BEDTIME KAITY Last Admin: 09/10/23 20:46 Dose: 7.5 mg Nicotine (Nicotine 21 Mg Patch.Td24) 21 mg TRANSDERMA DAILY KAITY Last Admin: 09/10/23 08:46 Dose: Not Given Prazosin HCl (Prazosin Hcl 1 Mg Capsule) 1 mg PO BEDTIME KAITY; Protocol Last Admin: 09/10/23 20:46 Dose: 1 mg Trazodone HCl (Trazodone Hcl 50 Mg Tablet) 50 mg PO BEDTIME MRX1 PRN PRN Reason: Insomnia Last Admin: 09/10/23 20:46 Dose: 50 mg Allergies Allergies Allergy/AdvReac Type Severity Reaction Status Date / Time Penicillins [PCN] Allergy Mild HIVES Verified 01/26/22 11:04 amoxicillin [AMOXICILLIN] Allergy Unknown HIVES Verified 01/26/22 11:04 bee pollen [BEE STINGS] Allergy Unknown SWELLING Verified 01/26/22 11:04 bismuth subsalicylate Allergy Unknown VOMITTING Verified 01/26/22 11:04 [From PEPTO-BISMOL] Assessment & Plan Assessment & Plan (1) PTSD (post-traumatic stress disorder): Status: Acute Code(s): F43.10 - Post-traumatic stress disorder, unspecified (2) Depression: Status: Acute Code(s): F32.A - Depression, unspecified (3) Aseptic necrosis of bone of right hip: Status: Acute Code(s): M87.051 - Idiopathic aseptic necrosis of right femur (4) Opioid use disorder: Status: Acute Code(s): F11.90 - Opioid use, unspecified, uncomplicated (5) Cocaine use disorder: Status: Acute Code(s): F14.10 - Cocaine abuse, uncomplicated (6) Amphetamine use disorder, moderate: Status: Acute Code(s): F15.20 - Other stimulant dependence, uncomplicated Plan Patient is a 32-year-old female with history of PTSD, polysubstance abuse including opiates, cocaine, amphetamines, Hep C, chronic right hip necrosis who presents with SI plan to jump in front of a car. Patient is having withdrawal symptoms, not wanting to talk much and reticent on approach. However she says she wants to get back on Abilify and Zyprexa to help her back feelings go away. She denies any AVH and mostly just endorses ongoing PTSD symptoms including nightmares for which she agrees to try prazosin. Patient asks if she can rest now talk more tomorrow. Patient asked to be started on methadone. Elevator Repairer Apprentice reviewed medication history and patient said she wants to be back on Abilify though she could only say it could help with PTSD; also asked for Zyprexa which was started as a p.r.n. on the unit, to be increased. Hospital course: 09/03 More talkative interactive today. Still depressed but feeling a little better. Says prazosin it limited nightmares last night. Still in withdrawal but not as bad No hx of manic episodes; no AVH; significant PTSD symptoms including intermittent disssociative episodes Discussed medication history in more detail. Patient wants to get back on remeron which helped w/ insomnia; however she felt it did not adequately address PTSD and after discussing risks/side effects of medication regimens she would like to get on Prozac to which curriculum writer agreed. In addition to staying on Abilify albeit lower dose than previously, she asks for Thorazine as a p.r.n.. She says her PTSD/anxiety is typically much worse in the afternoon and says Thorazine has helped in the past. She has been taking p.r.n. Zyprexa which she does not find helpful. 09/06 little better; still very anxious, cravings; increasing prozac and methadone 09/07 continued struggles with anxiety and depression; wants Prozac increased to 40 mg even though this is a quick titration, patient does not want to risk being underdosed (understands risks quick titration). Discussed groups. Patient wants to go but has been struggling with anxiety. Will push herself to attend. -will consider increasing Abilify -will consider Topamax (or baclofen) at some point for cocaine cravings (no hx of glaucoma, kidney stone) 09/08 patient remains improving, attending groups, in good behavior and impulse control, and appropriate with peers and staff. Feels that her mood is getting little better. Anxiety a little less. Still PTSD flashbacks but she finds she is able to cope right now. Very hopeful about getting into a program. Still lot of cravings for opiates and feeling some withdrawal 09/09 EKG/QTC WNL; will continue to titrate Haldol; patient remains engaged in treatment, getting along well with others. Again discussed metoprolol which she says she did not get yesterday but has been on in the past and wants to get back on it for daytime anxiety 09/10 doing well; friendly, engaged in treatment, insightful...making good use of resources available to her on the unit. Very much wants a program and sobriety. Feels good about current med regimen. Sleeping and eating well. Since medication changes made, patients mood and anxiety remain improved and curriculum writer agrees that patient is stable on current me08/27/16: Continue current regimen and plans regimen. Plan: CV Q 15 minute checks Start metoprolol ER 25 mg daily Continue Prozac 40mg daily for ptsd/depression Continue Remeron 7.5mg qhs for insomnia/depression Continue Abilify 5 mg q.h.s. Continue Thorazine 100mg daily prn for mod-severe anxiety continue prazosin 1 mg q.h.s. for nightmares Increase Methadone to 70mg (continue to titrate) Patient aware of chronic right hip necrosis which she says has been going on for over a year; says she knows she needs a hip replacement XR/XR hip RT w PEL1V FINDINGS: End-stage right hip, with marked sclerosis and destruction of the right femoral head again observed. Acetabular protrusio again observed. No acute findings. Left hip intact as is the pelvis. IMPRESSION:End-stage right hip. No substantial change. XR/XR knee RT 4V FINDINGS:Diffuse osteopenia but no fracture or destructive process. No joint effusion. Joint spaces appear well preserved. No erosions. IMPRESSION: Unremarkable study past med trials recorded: Abilify 20 mg Depakote ER 250 mg Mirtazapine 7.5 mg Prazosin 1 mg q.h.s. Sumatriptan 50 mgTrazodone 100 mg Reason for continued inpatient stay Substantial Risk for: med/psych decompensation Time Spent With Patient Time: Total time managing care of this patient today ____ minutes.
[2023-09-11] MEDS: chlorproMAZINE HCl 100 MG TABLET PO ×2 (09:55→17:13)
[2023-09-11] MEDS: methADONE HCl 20 MG/2 ML ORAL.CONC 10 MG PO (16:57)
[2023-09-11 19:55] VITALS: BP 100/55; PULSE 99; TEMP 36.4
[2023-09-11] MEDS: Mirtazapine 7.5 MG TABLET PO (19:58)
[2023-09-11] MEDS: Prazosin HCL 1 MG CAPSULE PO (19:59)
[2023-09-11] MEDS: traZODone HCL 50 MG TABLET PO (19:59)
[2023-09-11] MEDS: ARIPiprazole 5 MG TABLET PO (19:59)
[2023-09-12] MEDS: Metoprolol Succinate ER 25 MG TAB.ER.24H PO (08:50)
[2023-09-12] MEDS: methADONE HCl 20 MG/2 ML ORAL.CONC 80 MG PO (08:50)
[2023-09-12] MEDS: FLUoxetine HCl 20 MG CAPSULE 40 MG PO (08:50)
[2023-09-12 08:53] VITALS: BP 121/94; PULSE 99; RESP 16; TEMP 36.4; O2SAT 98
--- NOTE | 2023-09-12 09:59 | HO.PSYCHPN ---
Subjective Subjective Date of Service: 09/12/23 Reason For Visit: Depression/SI, opiate use disorder, polysubstance Subjective Notes: Conditional Voluntary Interim History: Patient was seen and discussed in rounds today. Records and plans were reviewed. She has been fairly stable and is doing better. She is med compliant. Eating and sleeping well. She is still somewhat withdrawn. She is committed to staying ?clean?. No complaints or side effects. No changes were made Medication Compliance: Yes Side effects from medications: No Review of Systems Review of Systems Yes all other systems are reviewed and are negative Diagnostics Vital Signs (24Hr): Vital Signs - 24 hr 09/11/23 19:55 09/12/23 08:53 Temperature 97.5 F 97.6 F Pulse Rate 99 99 Respiratory Rate 16 Blood Pressure 100/55 L 121/94 H Pulse Oximetry 98 Oxygen Delivery Method Room Air BMI result Body Mass Index 26.9 Labs 09/01/23 09:44 09/01/23 09:44 Imaging Radiology Impressions: ITS Impressions Hip/Pelvis X-Ray 09/01/23 08:13 IMPRESSION: End-stage right hip. No substantial change. Knee X-Ray 09/01/23 08:13 IMPRESSION: Unremarkable study. Medications Medications Current Medications Acetaminophen (Acetaminophen 325 Mg Tablet) 650 mg PO Q6H PRN PRN Reason: Headache/Pain Mild Scale (1-3) Last Admin: 09/01/23 19:37 Dose: 650 mg Al Hydroxide/Mg Hydroxide (Magnesium Hydrox/Alum Hydrox 30 Ml Oral.Susp) 30 ml PO Q6H PRN PRN Reason: Heartburn/Nausea Albuterol Sulfate (Albuterol Sulfate 90 Mcg 8 Gm Inhaler) 2 puff INHALE RQ4H PRN PRN Reason: Shortness of Breath Aripiprazole (Aripiprazole 5 Mg Tablet) 5 mg PO BEDTIME KAITY Last Admin: 09/11/23 19:59 Dose: 5 mg Benztropine Mesylate (Benztropine Mesylate 0.5 Mg Tablet) 0.5 mg PO TID PRN PRN Reason: Extrapyramidal Effects Chlorpromazine HCl (Chlorpromazine Hcl 100 Mg Tablet) 100 mg PO BID PRN PRN Reason: moderate to severe anxiety Last Admin: 09/11/23 17:13 Dose: 100 mg Clonidine HCl (Clonidine Hcl 0.1 Mg Tablet) 0.1 mg PO TID PRN; Protocol PRN Reason: withdrawal Last Admin: 09/09/23 19:43 Dose: 0.1 mg Fluoxetine HCl (Fluoxetine Hcl 20 Mg Capsule) 40 mg PO DAILY KAITY Last Admin: 09/12/23 08:50 Dose: 40 mg Hydroxyzine HCl (Hydroxyzine Hcl 25 Mg Tablet) 25 mg PO Q6H PRN PRN Reason: Anxiety Last Admin: 09/10/23 20:46 Dose: 25 mg Magnesium Hydroxide (Milk Of Magnesia 30 Ml Oral.Susp) 30 ml PO DAILY PRN PRN Reason: Constipation Last Admin: 09/08/23 12:09 Dose: 30 ml Methadone HCl (Methadone Hcl 20 Mg/2 Ml Oral.Conc) 80 mg PO DAILY KAITY Last Admin: 09/12/23 08:50 Dose: 80 mg Metoprolol Succinate (Metoprolol Succinate Er 25 Mg Tab.Er.24h) 25 mg PO DAILY KAITY; Protocol Last Admin: 09/12/23 08:50 Dose: 25 mg Mirtazapine (Mirtazapine 7.5 Mg Tablet) 7.5 mg PO BEDTIME KAITY Last Admin: 09/11/23 19:58 Dose: 7.5 mg Nicotine (Nicotine 21 Mg Patch.Td24) 21 mg TRANSDERMA DAILY KAITY Last Admin: 09/12/23 08:51 Dose: Not Given Prazosin HCl (Prazosin Hcl 1 Mg Capsule) 1 mg PO BEDTIME KAITY; Protocol Last Admin: 09/11/23 19:59 Dose: 1 mg Trazodone HCl (Trazodone Hcl 50 Mg Tablet) 50 mg PO BEDTIME MRX1 PRN PRN Reason: Insomnia Last Admin: 09/11/23 19:59 Dose: 50 mg Allergies Allergies Allergy/AdvReac Type Severity Reaction Status Date / Time Penicillins [PCN] Allergy Mild HIVES Verified 01/26/22 11:04 amoxicillin [AMOXICILLIN] Allergy Unknown HIVES Verified 01/26/22 11:04 bee pollen [BEE STINGS] Allergy Unknown SWELLING Verified 01/26/22 11:04 bismuth subsalicylate Allergy Unknown VOMITTING Verified 01/26/22 11:04 [From PEPTO-BISMOL] Assessment & Plan Assessment & Plan (1) PTSD (post-traumatic stress disorder): Status: Acute Code(s): F43.10 - Post-traumatic stress disorder, unspecified (2) Depression: Status: Acute Code(s): F32.A - Depression, unspecified (3) Aseptic necrosis of bone of right hip: Status: Acute Code(s): M87.051 - Idiopathic aseptic necrosis of right femur (4) Opioid use disorder: Status: Acute Code(s): F11.90 - Opioid use, unspecified, uncomplicated (5) Cocaine use disorder: Status: Acute Code(s): F14.10 - Cocaine abuse, uncomplicated (6) Amphetamine use disorder, moderate: Status: Acute Code(s): F15.20 - Other stimulant dependence, uncomplicated Plan Patient is a 32-year-old female with history of PTSD, polysubstance abuse including opiates, cocaine, amphetamines, Hep C, chronic right hip necrosis who presents with SI plan to jump in front of a car. Patient is having withdrawal symptoms, not wanting to talk much and reticent on approach. However she says she wants to get back on Abilify and Zyprexa to help her back feelings go away. She denies any AVH and mostly just endorses ongoing PTSD symptoms including nightmares for which she agrees to try prazosin. Patient asks if she can rest now talk more tomorrow. Patient asked to be started on methadone. Semiconductor Development Technician reviewed medication history and patient said she wants to be back on Abilify though she could only say it could help with PTSD; also asked for Zyprexa which was started as a p.r.n. on the unit, to be increased. Hospital course: 09/03 More talkative interactive today. Still depressed but feeling a little better. Says prazosin it limited nightmares last night. Still in withdrawal but not as bad No hx of manic episodes; no AVH; significant PTSD symptoms including intermittent disssociative episodes Discussed medication history in more detail. Patient wants to get back on remeron which helped w/ insomnia; however she felt it did not adequately address PTSD and after discussing risks/side effects of medication regimens she would like to get on Prozac to which commercial insurance underwriter agreed. In addition to staying on Abilify albeit lower dose than previously, she asks for Thorazine as a p.r.n.. She says her PTSD/anxiety is typically much worse in the afternoon and says Thorazine has helped in the past. She has been taking p.r.n. Zyprexa which she does not find helpful. 09/06 little better; still very anxious, cravings; increasing prozac and methadone 09/07 continued struggles with anxiety and depression; wants Prozac increased to 40 mg even though this is a quick titration, patient does not want to risk being underdosed (understands risks quick titration). Discussed groups. Patient wants to go but has been struggling with anxiety. Will push herself to attend. -will consider increasing Abilify -will consider Topamax (or baclofen) at some point for cocaine cravings (no hx of glaucoma, kidney stone) 09/08 patient remains improving, attending groups, in good behavior and impulse control, and appropriate with peers and staff. Feels that her mood is getting little better. Anxiety a little less. Still PTSD flashbacks but she finds she is able to cope right now. Very hopeful about getting into a program. Still lot of cravings for opiates and feeling some withdrawal 09/09 EKG/QTC WNL; will continue to titrate Haldol; patient remains engaged in treatment, getting along well with others. Again discussed metoprolol which she says she did not get yesterday but has been on in the past and wants to get back on it for daytime anxiety 09/10 doing well; friendly, engaged in treatment, insightful...making good use of resources available to her on the unit. Very much wants a program and sobriety. Feels good about current med regimen. Sleeping and eating well. Since medication changes made, patients mood and anxiety remain improved and commercial insurance underwriter agrees that patient is stable on current me2: Continue current regimen and plans regimen. 09/12: Continue current regimen and plans Plan: CV Q 15 minute checks Start metoprolol ER 25 mg daily Continue Prozac 40mg daily for ptsd/depression Continue Remeron 7.5mg qhs for insomnia/depression Continue Abilify 5 mg q.h.s. Continue Thorazine 100mg daily prn for mod-severe anxiety continue prazosin 1 mg q.h.s. for nightmares Increase Methadone to 70mg (continue to titrate) Patient aware of chronic right hip necrosis which she says has been going on for over a year; says she knows she needs a hip replacement XR/XR hip RT w PEL1V FINDINGS: End-stage right hip, with marked sclerosis and destruction of the right femoral head again observed. Acetabular protrusio again observed. No acute findings. Left hip intact as is the pelvis. IMPRESSION:End-stage right hip. No substantial change. XR/XR knee RT 4V FINDINGS:Diffuse osteopenia but no fracture or destructive process. No joint effusion. Joint spaces appear well preserved. No erosions. IMPRESSION: Unremarkable study past med trials recorded: Abilify 20 mg Depakote ER 250 mg Mirtazapine 7.5 mg Prazosin 1 mg q.h.s. Sumatriptan 50 mgTrazodone 100 mg Reason for continued inpatient stay Substantial Risk for: med/psych decompensation Time Spent With Patient Time: Total time managing care of this patient today ____ minutes.
[2023-09-12] MEDS: chlorproMAZINE HCl 100 MG TABLET PO ×2 (12:14→17:41)
[2023-09-12 19:55] VITALS: BP 131/76; PULSE 106; TEMP 36.1
[2023-09-12] MEDS: traZODone HCL 50 MG TABLET PO (20:07)
[2023-09-12] MEDS: ARIPiprazole 5 MG TABLET PO (20:08)
[2023-09-12] MEDS: Mirtazapine 7.5 MG TABLET PO (20:08)
[2023-09-12] MEDS: Prazosin HCL 1 MG CAPSULE PO (20:08)
[2023-09-13 08:20] VITALS: BP 105/67; PULSE 83; RESP 16; TEMP 36.5; O2SAT 95
[2023-09-13] MEDS: methADONE HCl 20 MG/2 ML ORAL.CONC 80 MG PO (08:52)
[2023-09-13] MEDS: FLUoxetine HCl 20 MG CAPSULE 40 MG PO (08:53)
[2023-09-13] MEDS: Metoprolol Succinate ER 25 MG TAB.ER.24H PO (10:20)
[2023-09-13 10:21] VITALS: BP 119/81; PULSE 104
[2023-09-13] MEDS: chlorproMAZINE HCl 100 MG TABLET PO ×2 (11:01→20:50)
--- NOTE | 2023-09-13 12:03 | HO.PSYCHPN ---
Subjective Subjective Date of Service: 09/13/23 Reason For Visit: Depression/SI, opiate use disorder, polysubstance Subjective Notes: Conditional Voluntary Interim History: Patient was seen and discussed in rounds today. Records and plans were reviewed. She is doing fairly well and has been med compliant. Eating and sleeping adequately. No complaints or side effects. She is mostly isolative. She wants to discuss being put on Ritalin rather than Strattera and she will discuss that with her provider tomorrow. No changes were made today Medication Compliance: Yes Side effects from medications: No Review of Systems Review of Systems Yes all other systems are reviewed and are negative Mental Status Exam Mental Status Exam Narrative: In today's visit she is alert, oriented and pleasant. Normal speech. Moderate eye contact. Appropriate affect. No signs of psychosis. Cognitively intact. No SI. No changes were made today Diagnostics Vital Signs (24Hr): Vital Signs - 24 hr 09/12/23 19:55 09/13/23 08:20 09/13/23 10:21 Temperature 97.0 F 97.7 F Pulse Rate 106 H 83 104 H Respiratory Rate 16 Blood Pressure 131/76 105/67 119/81 Pulse Oximetry 95 Oxygen Delivery Method Room Air BMI result Body Mass Index 26.9 Labs 09/01/23 09:44 09/01/23 09:44 Imaging Radiology Impressions: ITS Impressions Hip/Pelvis X-Ray 09/01/23 08:13 IMPRESSION: End-stage right hip. No substantial change. Knee X-Ray 09/01/23 08:13 IMPRESSION: Unremarkable study. Medications Medications Current Medications Acetaminophen (Acetaminophen 325 Mg Tablet) 650 mg PO Q6H PRN PRN Reason: Headache/Pain Mild Scale (1-3) Last Admin: 09/01/23 19:37 Dose: 650 mg Al Hydroxide/Mg Hydroxide (Magnesium Hydrox/Alum Hydrox 30 Ml Oral.Susp) 30 ml PO Q6H PRN PRN Reason: Heartburn/Nausea Albuterol Sulfate (Albuterol Sulfate 90 Mcg 8 Gm Inhaler) 2 puff INHALE RQ4H PRN PRN Reason: Shortness of Breath Aripiprazole (Aripiprazole 5 Mg Tablet) 5 mg PO BEDTIME KAITY Last Admin: 09/12/23 20:08 Dose: 5 mg Benztropine Mesylate (Benztropine Mesylate 0.5 Mg Tablet) 0.5 mg PO TID PRN PRN Reason: Extrapyramidal Effects Chlorpromazine HCl (Chlorpromazine Hcl 100 Mg Tablet) 100 mg PO BID PRN PRN Reason: moderate to severe anxiety Last Admin: 09/13/23 11:01 Dose: 100 mg Clonidine HCl (Clonidine Hcl 0.1 Mg Tablet) 0.1 mg PO TID PRN; Protocol PRN Reason: withdrawal Last Admin: 09/09/23 19:43 Dose: 0.1 mg Fluoxetine HCl (Fluoxetine Hcl 20 Mg Capsule) 40 mg PO DAILY KAITY Last Admin: 09/13/23 08:53 Dose: 40 mg Hydroxyzine HCl (Hydroxyzine Hcl 25 Mg Tablet) 25 mg PO Q6H PRN PRN Reason: Anxiety Last Admin: 09/10/23 20:46 Dose: 25 mg Magnesium Hydroxide (Milk Of Magnesia 30 Ml Oral.Susp) 30 ml PO DAILY PRN PRN Reason: Constipation Last Admin: 09/08/23 12:09 Dose: 30 ml Methadone HCl (Methadone Hcl 20 Mg/2 Ml Oral.Conc) 80 mg PO DAILY KAITY Last Admin: 09/13/23 08:52 Dose: 80 mg Metoprolol Succinate (Metoprolol Succinate Er 25 Mg Tab.Er.24h) 25 mg PO DAILY KAITY; Protocol Last Admin: 09/13/23 10:20 Dose: 25 mg Mirtazapine (Mirtazapine 7.5 Mg Tablet) 7.5 mg PO BEDTIME KAITY Last Admin: 09/12/23 20:08 Dose: 7.5 mg Nicotine (Nicotine 21 Mg Patch.Td24) 21 mg TRANSDERMA DAILY KAITY Last Admin: 09/13/23 08:54 Dose: Not Given Prazosin HCl (Prazosin Hcl 1 Mg Capsule) 1 mg PO BEDTIME KAITY; Protocol Last Admin: 09/12/23 20:08 Dose: 1 mg Trazodone HCl (Trazodone Hcl 50 Mg Tablet) 50 mg PO BEDTIME MRX1 PRN PRN Reason: Insomnia Last Admin: 09/12/23 20:07 Dose: 50 mg Allergies Allergies Allergy/AdvReac Type Severity Reaction Status Date / Time Penicillins [PCN] Allergy Mild HIVES Verified 01/26/22 11:04 amoxicillin [AMOXICILLIN] Allergy Unknown HIVES Verified 01/26/22 11:04 bee pollen [BEE STINGS] Allergy Unknown SWELLING Verified 01/26/22 11:04 bismuth subsalicylate Allergy Unknown VOMITTING Verified 01/26/22 11:04 [From PEPTO-BISMOL] Assessment & Plan Assessment & Plan (1) PTSD (post-traumatic stress disorder): Status: Acute Code(s): F43.10 - Post-traumatic stress disorder, unspecified (2) Depression: Status: Acute Code(s): F32.A - Depression, unspecified (3) Aseptic necrosis of bone of right hip: Status: Acute Code(s): M87.051 - Idiopathic aseptic necrosis of right femur (4) Opioid use disorder: Status: Acute Code(s): F11.90 - Opioid use, unspecified, uncomplicated (5) Cocaine use disorder: Status: Acute Code(s): F14.10 - Cocaine abuse, uncomplicated (6) Amphetamine use disorder, moderate: Status: Acute Code(s): F15.20 - Other stimulant dependence, uncomplicated Plan Patient is a 32-year-old female with history of PTSD, polysubstance abuse including opiates, cocaine, amphetamines, Hep C, chronic right hip necrosis who presents with SI plan to jump in front of a car. Patient is having withdrawal symptoms, not wanting to talk much and reticent on approach. However she says she wants to get back on Abilify and Zyprexa to help her back feelings go away. She denies any AVH and mostly just endorses ongoing PTSD symptoms including nightmares for which she agrees to try prazosin. Patient asks if she can rest now talk more tomorrow. Patient asked to be started on methadone. Mortar Worker reviewed medication history and patient said she wants to be back on Abilify though she could only say it could help with PTSD; also asked for Zyprexa which was started as a p.r.n. on the unit, to be increased. Hospital course: 09/03 More talkative interactive today. Still depressed but feeling a little better. Says prazosin it limited nightmares last night. Still in withdrawal but not as bad No hx of manic episodes; no AVH; significant PTSD symptoms including intermittent disssociative episodes Discussed medication history in more detail. Patient wants to get back on remeron which helped w/ insomnia; however she felt it did not adequately address PTSD and after discussing risks/side effects of medication regimens she would like to get on Prozac to which automatic typewriter inspector agreed. In addition to staying on Abilify albeit lower dose than previously, she asks for Thorazine as a p.r.n.. She says her PTSD/anxiety is typically much worse in the afternoon and says Thorazine has helped in the past. She has been taking p.r.n. Zyprexa which she does not find helpful. 09/06 little better; still very anxious, cravings; increasing prozac and methadone 09/07 continued struggles with anxiety and depression; wants Prozac increased to 40 mg even though this is a quick titration, patient does not want to risk being underdosed (understands risks quick titration). Discussed groups. Patient wants to go but has been struggling with anxiety. Will push herself to attend. -will consider increasing Abilify -will consider Topamax (or baclofen) at some point for cocaine cravings (no hx of glaucoma, kidney stone) 09/08 patient remains improving, attending groups, in good behavior and impulse control, and appropriate with peers and staff. Feels that her mood is getting little better. Anxiety a little less. Still PTSD flashbacks but she finds she is able to cope right now. Very hopeful about getting into a program. Still lot of cravings for opiates and feeling some withdrawal 09/09 EKG/QTC WNL; will continue to titrate Haldol; patient remains engaged in treatment, getting along well with others. Again discussed metoprolol which she says she did not get yesterday but has been on in the past and wants to get back on it for daytime anxiety 09/10 doing well; friendly, engaged in treatment, insightful...making good use of resources available to her on the unit. Very much wants a program and sobriety. Feels good about current med regimen. Sleeping and eating well. Since medication changes made, patients mood and anxiety remain improved and automatic typewriter inspector agrees that patient is stable on current me2/09/11: Continue current regimen and plans regimen. 09/12: Continue current regimen and plans 09/13: continue current regimen and plans Plan: CV Q 15 minute checks Start metoprolol ER 25 mg daily Continue Prozac 40mg daily for ptsd/depression Continue Remeron 7.5mg qhs for insomnia/depression Continue Abilify 5 mg q.h.s. Continue Thorazine 100mg daily prn for mod-severe anxiety continue prazosin 1 mg q.h.s. for nightmares Increase Methadone to 70mg (continue to titrate) Patient aware of chronic right hip necrosis which she says has been going on for over a year; says she knows she needs a hip replacement XR/XR hip RT w PEL1V FINDINGS: End-stage right hip, with marked sclerosis and destruction of the right femoral head again observed. Acetabular protrusio again observed. No acute findings. Left hip intact as is the pelvis. IMPRESSION:End-stage right hip. No substantial change. XR/XR knee RT 4V FINDINGS:Diffuse osteopenia but no fracture or destructive process. No joint effusion. Joint spaces appear well preserved. No erosions. IMPRESSION: Unremarkable study past med trials recorded: Abilify 20 mg Depakote ER 250 mg Mirtazapine 7.5 mg Prazosin 1 mg q.h.s. Sumatriptan 50 mgTrazodone 100 mg Reason for continued inpatient stay Substantial Risk for: med/psych decompensation Time Spent With Patient Time: Total time managing care of this patient today ____ minutes.
[2023-09-13 18:00] VITALS: BP 109/71; PULSE 86; RESP 14; TEMP 37; O2SAT 98
[2023-09-13] MEDS: Prazosin HCL 1 MG CAPSULE PO (20:50)
[2023-09-13] MEDS: Mirtazapine 7.5 MG TABLET PO (20:50)
[2023-09-13] MEDS: ARIPiprazole 5 MG TABLET PO (20:50)
[2023-09-13] MEDS: traZODone HCL 50 MG TABLET PO (20:50)
[2023-09-14] MEDS: methADONE HCl 20 MG/2 ML ORAL.CONC 80 MG PO (08:17)
[2023-09-14] MEDS: FLUoxetine HCl 20 MG CAPSULE 40 MG PO (08:17)
[2023-09-14 10:45] VITALS: BP 135/88; PULSE 76; RESP 18; TEMP 36.8; O2SAT 96
[2023-09-14] MEDS: Metoprolol Succinate ER 25 MG TAB.ER.24H PO (10:57)
[2023-09-14] MEDS: chlorproMAZINE HCl 100 MG TABLET PO (10:57)
--- NOTE | 2023-09-14 16:26 | PM.EVENT ---
Event Note Date of Service: 09/14/23 Event Note: Addiction note: Message recieved from attending provider (Dr. Lane) requesting that t/w continue to titrate patient's methadone dose. Chart reviewed. Dose was increased from 70-80mg on 09/12. Weekend provider notes reviewed and no concerns noted. Plan: -no change to current dose --should remain at this dose for the remainder of the week -if there is concern for withdrawal or other OUD related sx, this typewriter ribbon winder can address at that time. Time Spent With Patient Time: Total time managing care of this patient today ____ minutes.
--- NOTE | 2023-09-14 16:28 | HO.PSYCHPN ---
Subjective Subjective Date of Service: 09/14/23 Reason For Visit: Depression/SI, opiate use disorder, polysubstance Subjective Notes: Conditional Voluntary Healthcare Proxy: No Guardianship: No Interim History: Pt declined to meet today. Team reports she has been irritable. She is pending a possible admit to [facility]. She is visable in milieu, connected with peers. Medication Compliance: Yes Side effects from medications: No Attending Groups: Intermittent Review of Systems Acute medical concerns: No Medical Review of Systems: unchanged Review of Systems Review of Systems Yes Unobtainable due to mental status Mental Status Exam Mental Status Exam Narrative: Pt active at times in milieu. This afternoon, she is resting, declines to meet, presents with irritability Diagnostics Vital Signs (24Hr): Vital Signs - 24 hr 09/13/23 18:00 09/14/23 10:45 Temperature 98.6 F 98.2 F Pulse Rate 86 76 Respiratory Rate 14 18 Blood Pressure 109/71 135/88 Pulse Oximetry 98 96 Oxygen Delivery Method Room Air Room Air BMI result Body Mass Index 26.9 Labs 09/01/23 09:44 09/01/23 09:44 Imaging Radiology Impressions: ITS Impressions Hip/Pelvis X-Ray 09/01/23 08:13 IMPRESSION: End-stage right hip. No substantial change. Knee X-Ray 09/01/23 08:13 IMPRESSION: Unremarkable study. Medications Medications Current Medications Acetaminophen (Acetaminophen 325 Mg Tablet) 650 mg PO Q6H PRN PRN Reason: Headache/Pain Mild Scale (1-3) Last Admin: 09/01/23 19:37 Dose: 650 mg Al Hydroxide/Mg Hydroxide (Magnesium Hydrox/Alum Hydrox 30 Ml Oral.Susp) 30 ml PO Q6H PRN PRN Reason: Heartburn/Nausea Albuterol Sulfate (Albuterol Sulfate 90 Mcg 8 Gm Inhaler) 2 puff INHALE RQ4H PRN PRN Reason: Shortness of Breath Aripiprazole (Aripiprazole 5 Mg Tablet) 5 mg PO BEDTIME KAITY Last Admin: 09/13/23 20:50 Dose: 5 mg Benztropine Mesylate (Benztropine Mesylate 0.5 Mg Tablet) 0.5 mg PO TID PRN PRN Reason: Extrapyramidal Effects Chlorpromazine HCl (Chlorpromazine Hcl 100 Mg Tablet) 100 mg PO BID PRN PRN Reason: moderate to severe anxiety Last Admin: 09/14/23 10:57 Dose: 100 mg Clonidine HCl (Clonidine Hcl 0.1 Mg Tablet) 0.1 mg PO TID PRN; Protocol PRN Reason: withdrawal Last Admin: 09/09/23 19:43 Dose: 0.1 mg Fluoxetine HCl (Fluoxetine Hcl 20 Mg Capsule) 40 mg PO DAILY KAITY Last Admin: 09/14/23 08:17 Dose: 40 mg Hydroxyzine HCl (Hydroxyzine Hcl 25 Mg Tablet) 25 mg PO Q6H PRN PRN Reason: Anxiety Last Admin: 09/10/23 20:46 Dose: 25 mg Magnesium Hydroxide (Milk Of Magnesia 30 Ml Oral.Susp) 30 ml PO DAILY PRN PRN Reason: Constipation Last Admin: 09/08/23 12:09 Dose: 30 ml Methadone HCl (Methadone Hcl 20 Mg/2 Ml Oral.Conc) 80 mg PO DAILY KAITY Last Admin: 09/14/23 08:17 Dose: 80 mg Metoprolol Succinate (Metoprolol Succinate Er 25 Mg Tab.Er.24h) 25 mg PO DAILY KAITY; Protocol Last Admin: 09/14/23 10:57 Dose: 25 mg Mirtazapine (Mirtazapine 7.5 Mg Tablet) 7.5 mg PO BEDTIME KAITY Last Admin: 09/13/23 20:50 Dose: 7.5 mg Nicotine (Nicotine 21 Mg Patch.Td24) 21 mg TRANSDERMA DAILY KAITY Last Admin: 09/14/23 08:41 Dose: Not Given Prazosin HCl (Prazosin Hcl 1 Mg Capsule) 1 mg PO BEDTIME KAITY; Protocol Last Admin: 09/13/23 20:50 Dose: 1 mg Trazodone HCl (Trazodone Hcl 50 Mg Tablet) 50 mg PO BEDTIME MRX1 PRN PRN Reason: Insomnia Last Admin: 09/13/23 20:50 Dose: 50 mg Allergies Allergies Allergy/AdvReac Type Severity Reaction Status Date / Time Penicillins [PCN] Allergy Mild HIVES Verified 01/26/22 11:04 amoxicillin [AMOXICILLIN] Allergy Unknown HIVES Verified 01/26/22 11:04 bee pollen [BEE STINGS] Allergy Unknown SWELLING Verified 01/26/22 11:04 bismuth subsalicylate Allergy Unknown VOMITTING Verified 01/26/22 11:04 [From PEPTO-BISMOL] Assessment & Plan Assessment & Plan (1) PTSD (post-traumatic stress disorder): Status: Acute Code(s): F43.10 - Post-traumatic stress disorder, unspecified (2) Depression: Status: Acute Code(s): F32.A - Depression, unspecified (3) Aseptic necrosis of bone of right hip: Status: Acute Code(s): M87.051 - Idiopathic aseptic necrosis of right femur (4) Opioid use disorder: Status: Acute Code(s): F11.90 - Opioid use, unspecified, uncomplicated (5) Cocaine use disorder: Status: Acute Code(s): F14.10 - Cocaine abuse, uncomplicated (6) Amphetamine use disorder, moderate: Status: Acute Code(s): F15.20 - Other stimulant dependence, uncomplicated Plan Patient is a 32-year-old female with history of PTSD, polysubstance abuse including opiates, cocaine, amphetamines, Hep C, chronic right hip necrosis who presents with SI plan to jump in front of a car. Patient is having withdrawal symptoms, not wanting to talk much and reticent on approach. However she says she wants to get back on Abilify and Zyprexa to help her back feelings go away. She denies any AVH and mostly just endorses ongoing PTSD symptoms including nightmares for which she agrees to try prazosin. Patient asks if she can rest now talk more tomorrow. Patient asked to be started on methadone. Bin Packer reviewed medication history and patient said she wants to be back on Abilify though she could only say it could help with PTSD; also asked for Zyprexa which was started as a p.r.n. on the unit, to be increased. Hospital course: 09/03 More talkative interactive today. Still depressed but feeling a little better. Says prazosin it limited nightmares last night. Still in withdrawal but not as bad No hx of manic episodes; no AVH; significant PTSD symptoms including intermittent disssociative episodes Discussed medication history in more detail. Patient wants to get back on remeron which helped w/ insomnia; however she felt it did not adequately address PTSD and after discussing risks/side effects of medication regimens she would like to get on Prozac to which writer technical publications agreed. In addition to staying on Abilify albeit lower dose than previously, she asks for Thorazine as a p.r.n.. She says her PTSD/anxiety is typically much worse in the afternoon and says Thorazine has helped in the past. She has been taking p.r.n. Zyprexa which she does not find helpful. 09/06 little better; still very anxious, cravings; increasing prozac and methadone 09/07 continued struggles with anxiety and depression; wants Prozac increased to 40 mg even though this is a quick titration, patient does not want to risk being underdosed (understands risks quick titration). Discussed groups. Patient wants to go but has been struggling with anxiety. Will push herself to attend. -will consider increasing Abilify -will consider Topamax (or baclofen) at some point for cocaine cravings (no hx of glaucoma, kidney stone) 09/08 patient remains improving, attending groups, in good behavior and impulse control, and appropriate with peers and staff. Feels that her mood is getting little better. Anxiety a little less. Still PTSD flashbacks but she finds she is able to cope right now. Very hopeful about getting into a program. Still lot of cravings for opiates and feeling some withdrawal 09/09 EKG/QTC WNL; will continue to titrate Haldol; patient remains engaged in treatment, getting along well with others. Again discussed metoprolol which she says she did not get yesterday but has been on in the past and wants to get back on it for daytime anxiety 09/10 doing well; friendly, engaged in treatment, insightful...making good use of resources available to her on the unit. Very much wants a program and sobriety. Feels good about current med regimen. Sleeping and eating well. Since medication changes made, patients mood and anxiety remain improved and writer technical publications agrees that patient is stable on current me2/09/11: Continue current regimen and plans regimen. 09/12: Continue current regimen and plans 09/13: continue current regimen and plans 09/14: Continue tx. Plan: CV Q 15 minute checks Start metoprolol ER 25 mg daily Continue Prozac 40mg daily for ptsd/depression Continue Remeron 7.5mg qhs for insomnia/depression Continue Abilify 5 mg q.h.s. Continue Thorazine 100mg daily prn for mod-severe anxiety continue prazosin 1 mg q.h.s. for nightmares Increase Methadone to 70mg (continue to titrate) Patient aware of chronic right hip necrosis which she says has been going on for over a year; says she knows she needs a hip replacement XR/XR hip RT w PEL1V FINDINGS: End-stage right hip, with marked sclerosis and destruction of the right femoral head again observed. Acetabular protrusio again observed. No acute findings. Left hip intact as is the pelvis. IMPRESSION:End-stage right hip. No substantial change. XR/XR knee RT 4V FINDINGS:Diffuse osteopenia but no fracture or destructive process. No joint effusion. Joint spaces appear well preserved. No erosions. IMPRESSION: Unremarkable study past med trials recorded: Abilify 20 mg Depakote ER 250 mg Mirtazapine 7.5 mg Prazosin 1 mg q.h.s. Sumatriptan 50 mgTrazodone 100 mg Informed Consent: understands Reason for continued inpatient stay Substantial Risk for: rapid decompensation Time Spent With Patient Time: Total time managing care of this patient today ____ minutes.
[2023-09-14 18:00] VITALS: BP 116/74; PULSE 91; TEMP 36.2; O2SAT 97
[2023-09-14] MEDS: traZODone HCL 50 MG TABLET PO (22:10)
[2023-09-14] MEDS: ARIPiprazole 5 MG TABLET PO (22:10)
[2023-09-14] MEDS: Mirtazapine 7.5 MG TABLET PO (22:10)
[2023-09-14] MEDS: Prazosin HCL 1 MG CAPSULE PO (22:10)
[2023-09-15 06:00] VITALS: BP 109/71; PULSE 101; RESP 16; TEMP 36.4; O2SAT 95
[2023-09-15] MEDS: FLUoxetine HCl 20 MG CAPSULE 40 MG PO (09:16)
[2023-09-15] MEDS: methADONE HCl 20 MG/2 ML ORAL.CONC 80 MG PO (09:16)
[2023-09-15] MEDS: Metoprolol Succinate ER 25 MG TAB.ER.24H PO (09:16)
[2023-09-15] MEDS: chlorproMAZINE HCl 100 MG TABLET PO (12:41)
[2023-09-15 18:25] VITALS: BP 123/79; PULSE 100; RESP 16; TEMP 36.6; O2SAT 97
--- NOTE | 2023-09-15 18:55 | P.PNPSI_ITS ---
Subjective Subjective Date of Service: 09/15/23 Reason For Visit: Depression/SI, opiate use disorder, polysubstance Subjective Notes: Conditional Voluntary Healthcare Proxy: No Guardianship: No Medical Problems Affecting Mental Status: No Interim History: Samira asks to consider Adderall or Ritalin instead of Strattera for ADHD mgt. This change may jeopardize her next placement. Discussed with pt and will discuss with the team. Medication Compliance: Yes Side effects from medications: No Attending Groups: Intermittent Review of Systems Acute medical concerns: No Medical Review of Systems: unchanged Review of Systems Review of Systems Yes all other systems are reviewed and are negative Mental Status Exam Mental Status Exam Narrative: In today's visit she is alert, oriented and pleasant. Normal speech. Moderate eye contact. Appropriate affect. No signs of psychosis. Cognitively intact. No SI. Diagnostics Vital Signs (24Hr): Vital Signs - 24 hr 09/15/23 06:00 09/15/23 18:25 Temperature 97.5 F 97.9 F Pulse Rate 101 H 100 Respiratory Rate 16 16 Blood Pressure 109/71 123/79 Pulse Oximetry 95 97 Oxygen Delivery Method Room Air Room Air BMI result Body Mass Index 26.9 Labs 09/01/23 09:44 09/01/23 09:44 Imaging Radiology Impressions: ITS Impressions Hip/Pelvis X-Ray 09/01/23 08:13 IMPRESSION: End-stage right hip. No substantial change. Knee X-Ray 09/01/23 08:13 IMPRESSION: Unremarkable study. Medications Medications Current Medications Acetaminophen (Acetaminophen 325 Mg Tablet) 650 mg PO Q6H PRN PRN Reason: Headache/Pain Mild Scale (1-3) Last Admin: 09/01/23 19:37 Dose: 650 mg Al Hydroxide/Mg Hydroxide (Magnesium Hydrox/Alum Hydrox 30 Ml Oral.Susp) 30 ml PO Q6H PRN PRN Reason: Heartburn/Nausea Albuterol Sulfate (Albuterol Sulfate 90 Mcg 8 Gm Inhaler) 2 puff INHALE RQ4H PRN PRN Reason: Shortness of Breath Aripiprazole (Aripiprazole 5 Mg Tablet) 5 mg PO BEDTIME KAITY Last Admin: 09/14/23 22:10 Dose: 5 mg Benztropine Mesylate (Benztropine Mesylate 0.5 Mg Tablet) 0.5 mg PO TID PRN PRN Reason: Extrapyramidal Effects Chlorpromazine HCl (Chlorpromazine Hcl 100 Mg Tablet) 100 mg PO BID PRN PRN Reason: moderate to severe anxiety Last Admin: 09/15/23 12:41 Dose: 100 mg Clonidine HCl (Clonidine Hcl 0.1 Mg Tablet) 0.1 mg PO TID PRN; Protocol PRN Reason: withdrawal Last Admin: 09/09/23 19:43 Dose: 0.1 mg Fluoxetine HCl (Fluoxetine Hcl 20 Mg Capsule) 40 mg PO DAILY KAITY Last Admin: 09/15/23 09:16 Dose: 40 mg Hydroxyzine HCl (Hydroxyzine Hcl 25 Mg Tablet) 25 mg PO Q6H PRN PRN Reason: Anxiety Last Admin: 09/10/23 20:46 Dose: 25 mg Magnesium Hydroxide (Milk Of Magnesia 30 Ml Oral.Susp) 30 ml PO DAILY PRN PRN Reason: Constipation Last Admin: 09/08/23 12:09 Dose: 30 ml Methadone HCl (Methadone Hcl 20 Mg/2 Ml Oral.Conc) 80 mg PO DAILY KAITY Last Admin: 09/15/23 09:16 Dose: 80 mg Metoprolol Succinate (Metoprolol Succinate Er 25 Mg Tab.Er.24h) 25 mg PO DAILY KAITY; Protocol Last Admin: 09/15/23 09:16 Dose: 25 mg Mirtazapine (Mirtazapine 7.5 Mg Tablet) 7.5 mg PO BEDTIME KAITY Last Admin: 09/14/23 22:10 Dose: 7.5 mg Nicotine (Nicotine 21 Mg Patch.Td24) 21 mg TRANSDERMA DAILY KAITY Last Admin: 09/15/23 09:17 Dose: Not Given Prazosin HCl (Prazosin Hcl 1 Mg Capsule) 1 mg PO BEDTIME KAITY; Protocol Last Admin: 09/14/23 22:10 Dose: 1 mg Trazodone HCl (Trazodone Hcl 50 Mg Tablet) 50 mg PO BEDTIME MRX1 PRN PRN Reason: Insomnia Last Admin: 09/14/23 22:10 Dose: 50 mg Allergies Allergies Allergy/AdvReac Type Severity Reaction Status Date / Time Penicillins [PCN] Allergy Mild HIVES Verified 01/26/22 11:04 amoxicillin [AMOXICILLIN] Allergy Unknown HIVES Verified 01/26/22 11:04 bee pollen [BEE STINGS] Allergy Unknown SWELLING Verified 01/26/22 11:04 bismuth subsalicylate Allergy Unknown VOMITTING Verified 01/26/22 11:04 [From PEPTO-BISMOL] Assessment & Plan Assessment & Plan (1) PTSD (post-traumatic stress disorder): Status: Acute Code(s): F43.10 - Post-traumatic stress disorder, unspecified (2) Depression: Status: Acute Code(s): F32.A - Depression, unspecified (3) Aseptic necrosis of bone of right hip: Status: Acute Code(s): M87.051 - Idiopathic aseptic necrosis of right femur (4) Opioid use disorder: Status: Acute Code(s): F11.90 - Opioid use, unspecified, uncomplicated (5) Cocaine use disorder: Status: Acute Code(s): F14.10 - Cocaine abuse, uncomplicated (6) Amphetamine use disorder, moderate: Status: Acute Code(s): F15.20 - Other stimulant dependence, uncomplicated Plan Patient is a 32-year-old female with history of PTSD, polysubstance abuse including opiates, cocaine, amphetamines, Hep C, chronic right hip necrosis who presents with SI plan to jump in front of a car. Patient is having withdrawal symptoms, not wanting to talk much and reticent on approach. However she says she wants to get back on Abilify and Zyprexa to help her back feelings go away. She denies any AVH and mostly just endorses ongoing PTSD symptoms including nightmares for which she agrees to try prazosin. Patient asks if she can rest now talk more tomorrow. Patient asked to be started on methadone. Earth Moving Machine Operator reviewed medication history and patient said she wants to be back on Abilify though she could only say it could help with PTSD; also asked for Zyprexa which was started as a p.r.n. on the unit, to be increased. Hospital course: 09/03 More talkative interactive today. Still depressed but feeling a little better. Says prazosin it limited nightmares last night. Still in withdrawal but not as bad No hx of manic episodes; no AVH; significant PTSD symptoms including intermittent disssociative episodes Discussed medication history in more detail. Patient wants to get back on remeron which helped w/ insomnia; however she felt it did not adequately address PTSD and after discussing risks/side effects of medication regimens she would like to get on Prozac to which video game script writer agreed. In addition to staying on Abilify albeit lower dose than previously, she asks for Thorazine as a p.r.n.. She says her PTSD/anxiety is typically much worse in the afternoon and says Thorazine has helped in the past. She has been taking p.r.n. Zyprexa which she does not find helpful. 09/06 little better; still very anxious, cravings; increasing prozac and methadone 09/07 continued struggles with anxiety and depression; wants Prozac increased to 40 mg even though this is a quick titration, patient does not want to risk being underdosed (understands risks quick titration). Discussed groups. Patient wants to go but has been struggling with anxiety. Will push herself to attend. -will consider increasing Abilify -will consider Topamax (or baclofen) at some point for cocaine cravings (no hx of glaucoma, kidney stone) 09/08 patient remains improving, attending groups, in good behavior and impulse control, and appropriate with peers and staff. Feels that her mood is getting little better. Anxiety a little less. Still PTSD flashbacks but she finds she is able to cope right now. Very hopeful about getting into a program. Still lot of cravings for opiates and feeling some withdrawal 09/09 EKG/QTC WNL; will continue to titrate Haldol; patient remains engaged in treatment, getting along well with others. Again discussed metoprolol which she says she did not get yesterday but has been on in the past and wants to get back on it for daytime anxiety 09/10 doing well; friendly, engaged in treatment, insightful...making good use of resources available to her on the unit. Very much wants a program and sobriety. Feels good about current med regimen. Sleeping and eating well. Since medication changes made, patients mood and anxiety remain improved and video game script writer agrees that patient is stable on current me2/09/11: Continue current regimen and plans regimen. 09/12: Continue current regimen and plans 09/13: continue current regimen and plans 09/14: Continue tx. 09/15: Continue tx. Plan: CV Q 15 minute checks Start metoprolol ER 25 mg daily Continue Prozac 40mg daily for ptsd/depression Continue Remeron 7.5mg qhs for insomnia/depression Continue Abilify 5 mg q.h.s. Continue Thorazine 100mg daily prn for mod-severe anxiety continue prazosin 1 mg q.h.s. for nightmares Increase Methadone to 70mg (continue to titrate) Patient aware of chronic right hip necrosis which she says has been going on for over a year; says she knows she needs a hip replacement XR/XR hip RT w PEL1V FINDINGS: End-stage right hip, with marked sclerosis and destruction of the right femoral head again observed. Acetabular protrusio again observed. No acute findings. Left hip intact as is the pelvis. IMPRESSION:End-stage right hip. No substantial change. XR/XR knee RT 4V FINDINGS:Diffuse osteopenia but no fracture or destructive process. No joint effusion. Joint spaces appear well preserved. No erosions. IMPRESSION: Unremarkable study past med trials recorded: Abilify 20 mg Depakote ER 250 mg Mirtazapine 7.5 mg Prazosin 1 mg q.h.s. Sumatriptan 50 mgTrazodone 100 mg Patient educated on: medication risk/benefits and therapeutic strategies Informed Consent: understands and further education needed Reason for continued inpatient stay Substantial Risk for: rapid decompensation Time Spent With Patient Time: Total time managing care of this patient today ____ minutes.
[2023-09-15] MEDS: traZODone HCL 50 MG TABLET PO (20:07)
[2023-09-15] MEDS: ARIPiprazole 5 MG TABLET PO (20:07)
[2023-09-15] MEDS: Mirtazapine 7.5 MG TABLET PO (20:07)
[2023-09-15] MEDS: Prazosin HCL 1 MG CAPSULE PO (20:07)
[2023-09-16] MEDS: FLUoxetine HCl 20 MG CAPSULE 40 MG PO (09:12)
[2023-09-16] MEDS: methADONE HCl 20 MG/2 ML ORAL.CONC 80 MG PO (09:13)
--- NOTE | 2023-09-16 11:42 | MHC.RECOVRN ---
Met with pt to follow up regarding methadone dose. Pt awake, alert, easily engages in conversation. Pt reports methadone is going well, is comfortable with current dose of 80 mg daily. Pt denies withdrawal symptoms. Denies other questions or concerns for t/w. Discussed with Alesia Garcia APRN.
[2023-09-16 12:05] VITALS: BMI 26.8
--- NOTE | 2023-09-16 12:05 | P.PNPSI_ITS ---
Subjective Subjective Date of Service: 09/16/23 Reason For Visit: Depression/SI, opiate use disorder, polysubstance Subjective Notes: Conditional Voluntary Healthcare Proxy: No Guardianship: No Medical Problems Affecting Mental Status: No Interim History: Discussed with pt keeping the plan to initiate Strattera due to risk of loss of CSS should we begin a stimulant. She is understanding and agrees. Will attempt to order and begin prior to discharge. Medication Compliance: Yes Side effects from medications: No Attending Groups: Intermittent Review of Systems Acute medical concerns: No Medical Review of Systems: unchanged Review of Systems Review of Systems Yes all other systems are reviewed and are negative Mental Status Exam Mental Status Exam Narrative: In today's visit she is alert, oriented and pleasant. Normal speech. Moderate eye contact. Appropriate affect. No signs of psychosis. Cognitively intact. No SI. Diagnostics Vital Signs (24Hr): Vital Signs - 24 hr 09/15/23 18:25 Temperature 97.9 F Pulse Rate 100 Respiratory Rate 16 Blood Pressure 123/79 Pulse Oximetry 97 Oxygen Delivery Method Room Air BMI result Body Mass Index 26.9 Labs 09/01/23 09:44 09/01/23 09:44 Imaging Radiology Impressions: ITS Impressions Hip/Pelvis X-Ray 09/01/23 08:13 IMPRESSION: End-stage right hip. No substantial change. Knee X-Ray 09/01/23 08:13 IMPRESSION: Unremarkable study. Medications Medications Current Medications Acetaminophen (Acetaminophen 325 Mg Tablet) 650 mg PO Q6H PRN PRN Reason: Headache/Pain Mild Scale (1-3) Last Admin: 09/01/23 19:37 Dose: 650 mg Al Hydroxide/Mg Hydroxide (Magnesium Hydrox/Alum Hydrox 30 Ml Oral.Susp) 30 ml PO Q6H PRN PRN Reason: Heartburn/Nausea Albuterol Sulfate (Albuterol Sulfate 90 Mcg 8 Gm Inhaler) 2 puff INHALE RQ4H PRN PRN Reason: Shortness of Breath Aripiprazole (Aripiprazole 5 Mg Tablet) 5 mg PO BEDTIME KAITY Last Admin: 09/15/23 20:07 Dose: 5 mg Benztropine Mesylate (Benztropine Mesylate 0.5 Mg Tablet) 0.5 mg PO TID PRN PRN Reason: Extrapyramidal Effects Chlorpromazine HCl (Chlorpromazine Hcl 100 Mg Tablet) 100 mg PO BID PRN PRN Reason: moderate to severe anxiety Last Admin: 09/15/23 12:41 Dose: 100 mg Clonidine HCl (Clonidine Hcl 0.1 Mg Tablet) 0.1 mg PO TID PRN; Protocol PRN Reason: withdrawal Last Admin: 09/09/23 19:43 Dose: 0.1 mg Fluoxetine HCl (Fluoxetine Hcl 20 Mg Capsule) 40 mg PO DAILY KAITY Last Admin: 09/16/23 09:12 Dose: 40 mg Hydroxyzine HCl (Hydroxyzine Hcl 25 Mg Tablet) 25 mg PO Q6H PRN PRN Reason: Anxiety Last Admin: 09/10/23 20:46 Dose: 25 mg Magnesium Hydroxide (Milk Of Magnesia 30 Ml Oral.Susp) 30 ml PO DAILY PRN PRN Reason: Constipation Last Admin: 09/08/23 12:09 Dose: 30 ml Methadone HCl (Methadone Hcl 20 Mg/2 Ml Oral.Conc) 80 mg PO DAILY KAITY Last Admin: 09/16/23 09:13 Dose: 80 mg Metoprolol Succinate (Metoprolol Succinate Er 25 Mg Tab.Er.24h) 25 mg PO DAILY KAITY; Protocol Last Admin: 09/16/23 10:33 Dose: Not Given Mirtazapine (Mirtazapine 7.5 Mg Tablet) 7.5 mg PO BEDTIME KAITY Last Admin: 09/15/23 20:07 Dose: 7.5 mg Nicotine (Nicotine 21 Mg Patch.Td24) 21 mg TRANSDERMA DAILY KAITY Last Admin: 09/16/23 09:17 Dose: Not Given Prazosin HCl (Prazosin Hcl 1 Mg Capsule) 1 mg PO BEDTIME KAITY; Protocol Last Admin: 09/15/23 20:07 Dose: 1 mg Trazodone HCl (Trazodone Hcl 50 Mg Tablet) 50 mg PO BEDTIME MRX1 PRN PRN Reason: Insomnia Last Admin: 09/15/23 20:07 Dose: 50 mg Allergies Allergies Allergy/AdvReac Type Severity Reaction Status Date / Time Penicillins [PCN] Allergy Mild HIVES Verified 01/26/22 11:04 amoxicillin [AMOXICILLIN] Allergy Unknown HIVES Verified 01/26/22 11:04 bee pollen [BEE STINGS] Allergy Unknown SWELLING Verified 01/26/22 11:04 bismuth subsalicylate Allergy Unknown VOMITTING Verified 01/26/22 11:04 [From PEPTO-BISMOL] Assessment & Plan Assessment & Plan (1) PTSD (post-traumatic stress disorder): Status: Acute Code(s): F43.10 - Post-traumatic stress disorder, unspecified (2) Depression: Status: Acute Code(s): F32.A - Depression, unspecified (3) Aseptic necrosis of bone of right hip: Status: Acute Code(s): M87.051 - Idiopathic aseptic necrosis of right femur (4) Opioid use disorder: Status: Acute Code(s): F11.90 - Opioid use, unspecified, uncomplicated (5) Cocaine use disorder: Status: Acute Code(s): F14.10 - Cocaine abuse, uncomplicated (6) Amphetamine use disorder, moderate: Status: Acute Code(s): F15.20 - Other stimulant dependence, uncomplicated Plan Patient is a 32-year-old female with history of PTSD, polysubstance abuse including opiates, cocaine, amphetamines, Hep C, chronic right hip necrosis who presents with SI plan to jump in front of a car. Patient is having withdrawal symptoms, not wanting to talk much and reticent on approach. However she says she wants to get back on Abilify and Zyprexa to help her back feelings go away. She denies any AVH and mostly just endorses ongoing PTSD symptoms including nightmares for which she agrees to try prazosin. Patient asks if she can rest now talk more tomorrow. Patient asked to be started on methadone. Property Analyst reviewed medication history and patient said she wants to be back on Abilify though she could only say it could help with PTSD; also asked for Zyprexa which was started as a p.r.n. on the unit, to be increased. Hospital course: 09/03 More talkative interactive today. Still depressed but feeling a little better. Says prazosin it limited nightmares last night. Still in withdrawal but not as bad No hx of manic episodes; no AVH; significant PTSD symptoms including intermittent disssociative episodes Discussed medication history in more detail. Patient wants to get back on remeron which helped w/ insomnia; however she felt it did not adequately address PTSD and after discussing risks/side effects of medication regimens she would like to get on Prozac to which engineering technical writer agreed. In addition to staying on Abilify albeit lower dose than previously, she asks for Thorazine as a p.r.n.. She says her PTSD/anxiety is typically much worse in the afternoon and says Thorazine has helped in the past. She has been taking p.r.n. Zyprexa which she does not find helpful. 09/06 little better; still very anxious, cravings; increasing prozac and methadone 09/07 continued struggles with anxiety and depression; wants Prozac increased to 40 mg even though this is a quick titration, patient does not want to risk being underdosed (understands risks quick titration). Discussed groups. Patient wants to go but has been struggling with anxiety. Will push herself to attend. -will consider increasing Abilify -will consider Topamax (or baclofen) at some point for cocaine cravings (no hx of glaucoma, kidney stone) 09/08 patient remains improving, attending groups, in good behavior and impulse control, and appropriate with peers and staff. Feels that her mood is getting little better. Anxiety a little less. Still PTSD flashbacks but she finds she is able to cope right now. Very hopeful about getting into a program. Still lot of cravings for opiates and feeling some withdrawal 09/09 EKG/QTC WNL; will continue to titrate Haldol; patient remains engaged in treatment, getting along well with others. Again discussed metoprolol which she says she did not get yesterday but has been on in the past and wants to get back on it for daytime anxiety 09/10 doing well; friendly, engaged in treatment, insightful...making good use of resources available to her on the unit. Very much wants a program and sobriety. Feels good about current med regimen. Sleeping and eating well. Since medication changes made, patients mood and anxiety remain improved and engineering technical writer agrees that patient is stable on current me2/09/11: Continue current regimen and plans regimen. 09/12: Continue current regimen and plans 09/13: continue current regimen and plans 09/14: Continue tx. 09/16: Will continue with plan to begin Strattera. Plan: CV Q 15 minute checks Start metoprolol ER 25 mg daily Continue Prozac 40mg daily for ptsd/depression Continue Remeron 7.5mg qhs for insomnia/depression Continue Abilify 5 mg q.h.s. Continue Thorazine 100mg daily prn for mod-severe anxiety continue prazosin 1 mg q.h.s. for nightmares Increase Methadone to 70mg (continue to titrate) Patient aware of chronic right hip necrosis which she says has been going on for over a year; says she knows she needs a hip replacement XR/XR hip RT w PEL1V FINDINGS: End-stage right hip, with marked sclerosis and destruction of the right femoral head again observed. Acetabular protrusio again observed. No acute findings. Left hip intact as is the pelvis. IMPRESSION:End-stage right hip. No substantial change. XR/XR knee RT 4V FINDINGS:Diffuse osteopenia but no fracture or destructive process. No joint effusion. Joint spaces appear well preserved. No erosions. IMPRESSION: Unremarkable study past med trials recorded: Abilify 20 mg Depakote ER 250 mg Mirtazapine 7.5 mg Prazosin 1 mg q.h.s. Sumatriptan 50 mgTrazodone 100 mg Patient educated on: medication risk/benefits Informed Consent: understands and further education needed Reason for continued inpatient stay Substantial Risk for: rapid decompensation Time Spent With Patient Time: Total time managing care of this patient today ____ minutes.
[2023-09-16 12:47] VITALS: BP 120/60; O2SAT 98
[2023-09-16] MEDS: chlorproMAZINE HCl 100 MG TABLET PO (12:48)
[2023-09-16] MEDS: Metoprolol Succinate ER 25 MG TAB.ER.24H PO (12:48)
--- NOTE | 2023-09-16 17:17 | P.EN_ITS ---
Event Note Date of Service: 09/16/23 Event Note: Addiction follow up Please see plant facilities technician note form 09/16/23 Patient reporting that she is comfortable at current dose of 80mg No indication to adjust dose at this time Time Spent With Patient Time: Total time managing care of this patient today ____ minutes.
[2023-09-16] MEDS: Mirtazapine 7.5 MG TABLET PO (20:53)
[2023-09-16] MEDS: traZODone HCL 50 MG TABLET PO (20:53)
[2023-09-16] MEDS: ARIPiprazole 5 MG TABLET PO (20:53)
[2023-09-16] MEDS: Prazosin HCL 1 MG CAPSULE PO (20:53)
[2023-09-17 06:00] VITALS: RESP 16
[2023-09-17] MEDS: FLUoxetine HCl 20 MG CAPSULE 40 MG PO (09:41)
[2023-09-17] MEDS: methADONE HCl 20 MG/2 ML ORAL.CONC 80 MG PO (09:41)
[2023-09-17] MEDS: chlorproMAZINE HCl 100 MG TABLET PO (13:54)
--- NOTE | 2023-09-17 16:10 | HO.PSYCHPN ---
Subjective Subjective Date of Service: 09/17/23 Reason For Visit: Depression/SI, opiate use disorder, polysubstance Subjective Notes: Conditional Voluntary Healthcare Proxy: No Guardianship: No Medical Problems Affecting Mental Status: No Interim History: Samira awaits CSS offer. Strattera initiated today. No current concerns except she reports anxiety if she does not have placement options. Medication Compliance: Yes Side effects from medications: No Attending Groups: Intermittent Review of Systems Acute medical concerns: No Medical Review of Systems: unchanged Review of Systems Review of Systems Yes all other systems are reviewed and are negative Mental Status Exam Mental Status Exam Narrative: In today's visit she is alert, oriented and pleasant. Normal speech. Moderate eye contact. Appropriate affect. No signs of psychosis. Cognitively intact. No SI. Anxiety about not having a potential placement. Diagnostics Vital Signs (24Hr): Vital Signs - 24 hr 09/17/23 06:00 Respiratory Rate 16 BMI result Body Mass Index 26.8 Labs 09/01/23 09:44 09/01/23 09:44 Imaging Radiology Impressions: ITS Impressions Hip/Pelvis X-Ray 09/01/23 08:13 IMPRESSION: End-stage right hip. No substantial change. Knee X-Ray 09/01/23 08:13 IMPRESSION: Unremarkable study. Medications Medications Current Medications Acetaminophen (Acetaminophen 325 Mg Tablet) 650 mg PO Q6H PRN PRN Reason: Headache/Pain Mild Scale (1-3) Last Admin: 09/01/23 19:37 Dose: 650 mg Al Hydroxide/Mg Hydroxide (Magnesium Hydrox/Alum Hydrox 30 Ml Oral.Susp) 30 ml PO Q6H PRN PRN Reason: Heartburn/Nausea Albuterol Sulfate (Albuterol Sulfate 90 Mcg 8 Gm Inhaler) 2 puff INHALE RQ4H PRN PRN Reason: Shortness of Breath Aripiprazole (Aripiprazole 5 Mg Tablet) 5 mg PO BEDTIME KAITY Last Admin: 09/16/23 20:53 Dose: 5 mg Benztropine Mesylate (Benztropine Mesylate 0.5 Mg Tablet) 0.5 mg PO TID PRN PRN Reason: Extrapyramidal Effects Chlorpromazine HCl (Chlorpromazine Hcl 100 Mg Tablet) 100 mg PO BID PRN PRN Reason: moderate to severe anxiety Last Admin: 09/17/23 13:54 Dose: 100 mg Clonidine HCl (Clonidine Hcl 0.1 Mg Tablet) 0.1 mg PO TID PRN; Protocol PRN Reason: withdrawal Last Admin: 09/09/23 19:43 Dose: 0.1 mg Fluoxetine HCl (Fluoxetine Hcl 20 Mg Capsule) 40 mg PO DAILY KAITY Last Admin: 09/17/23 09:41 Dose: 40 mg Hydroxyzine HCl (Hydroxyzine Hcl 25 Mg Tablet) 25 mg PO Q6H PRN PRN Reason: Anxiety Last Admin: 09/10/23 20:46 Dose: 25 mg Magnesium Hydroxide (Milk Of Magnesia 30 Ml Oral.Susp) 30 ml PO DAILY PRN PRN Reason: Constipation Last Admin: 09/08/23 12:09 Dose: 30 ml Methadone HCl (Methadone Hcl 20 Mg/2 Ml Oral.Conc) 80 mg PO DAILY KAIYT Last Admin: 09/17/23 09:41 Dose: 80 mg Metoprolol Succinate (Metoprolol Succinate Er 25 Mg Tab.Er.24h) 25 mg PO DAILY KAITY; Protocol Last Admin: 09/17/23 09:43 Dose: Not Given Mirtazapine (Mirtazapine 7.5 Mg Tablet) 7.5 mg PO BEDTIME KAITY Last Admin: 09/16/23 20:53 Dose: 7.5 mg Nicotine (Nicotine 21 Mg Patch.Td24) 21 mg TRANSDERMA DAILY KAITY Last Admin: 09/17/23 09:43 Dose: Not Given Pt Own (Atomoxetine (Hcl 40 Mg Capsule)) 40 mg PO DAILY KAITY Last Admin: 09/17/23 12:37 Dose: 40 mg Prazosin HCl (Prazosin Hcl 1 Mg Capsule) 1 mg PO BEDTIME KAITY; Protocol Last Admin: 09/16/23 20:53 Dose: 1 mg Trazodone HCl (Trazodone Hcl 50 Mg Tablet) 50 mg PO BEDTIME MRX1 PRN PRN Reason: Insomnia Last Admin: 09/16/23 20:53 Dose: 50 mg Allergies Allergies Allergy/AdvReac Type Severity Reaction Status Date / Time Penicillins [PCN] Allergy Mild HIVES Verified 01/26/22 11:04 amoxicillin [AMOXICILLIN] Allergy Unknown HIVES Verified 01/26/22 11:04 bee pollen [BEE STINGS] Allergy Unknown SWELLING Verified 01/26/22 11:04 bismuth subsalicylate Allergy Unknown VOMITTING Verified 01/26/22 11:04 [From PEPTO-BISMOL] Assessment & Plan Assessment & Plan (1) PTSD (post-traumatic stress disorder): Status: Acute Code(s): F43.10 - Post-traumatic stress disorder, unspecified (2) Depression: Status: Acute Code(s): F32.A - Depression, unspecified (3) Aseptic necrosis of bone of right hip: Status: Acute Code(s): M87.051 - Idiopathic aseptic necrosis of right femur (4) Opioid use disorder: Status: Acute Code(s): F11.90 - Opioid use, unspecified, uncomplicated (5) Cocaine use disorder: Status: Acute Code(s): F14.10 - Cocaine abuse, uncomplicated (6) Amphetamine use disorder, moderate: Status: Acute Code(s): F15.20 - Other stimulant dependence, uncomplicated Plan Patient is a 32-year-old female with history of PTSD, polysubstance abuse including opiates, cocaine, amphetamines, Hep C, chronic right hip necrosis who presents with SI plan to jump in front of a car. Patient is having withdrawal symptoms, not wanting to talk much and reticent on approach. However she says she wants to get back on Abilify and Zyprexa to help her back feelings go away. She denies any AVH and mostly just endorses ongoing PTSD symptoms including nightmares for which she agrees to try prazosin. Patient asks if she can rest now talk more tomorrow. Patient asked to be started on methadone. Brisket Puller reviewed medication history and patient said she wants to be back on Abilify though she could only say it could help with PTSD; also asked for Zyprexa which was started as a p.r.n. on the unit, to be increased. Hospital course: 09/03 More talkative interactive today. Still depressed but feeling a little better. Says prazosin it limited nightmares last night. Still in withdrawal but not as bad No hx of manic episodes; no AVH; significant PTSD symptoms including intermittent disssociative episodes Discussed medication history in more detail. Patient wants to get back on remeron which helped w/ insomnia; however she felt it did not adequately address PTSD and after discussing risks/side effects of medication regimens she would like to get on Prozac to which automotive service writer agreed. In addition to staying on Abilify albeit lower dose than previously, she asks for Thorazine as a p.r.n.. She says her PTSD/anxiety is typically much worse in the afternoon and says Thorazine has helped in the past. She has been taking p.r.n. Zyprexa which she does not find helpful. 09/06 little better; still very anxious, cravings; increasing prozac and methadone 09/07 continued struggles with anxiety and depression; wants Prozac increased to 40 mg even though this is a quick titration, patient does not want to risk being underdosed (understands risks quick titration). Discussed groups. Patient wants to go but has been struggling with anxiety. Will push herself to attend. -will consider increasing Abilify -will consider Topamax (or baclofen) at some point for cocaine cravings (no hx of glaucoma, kidney stone) 09/08 patient remains improving, attending groups, in good behavior and impulse control, and appropriate with peers and staff. Feels that her mood is getting little better. Anxiety a little less. Still PTSD flashbacks but she finds she is able to cope right now. Very hopeful about getting into a program. Still lot of cravings for opiates and feeling some withdrawal 09/09 EKG/QTC WNL; will continue to titrate Haldol; patient remains engaged in treatment, getting along well with others. Again discussed metoprolol which she says she did not get yesterday but has been on in the past and wants to get back on it for daytime anxiety 09/10 doing well; friendly, engaged in treatment, insightful...making good use of resources available to her on the unit. Very much wants a program and sobriety. Feels good about current med regimen. Sleeping and eating well. Since medication changes made, patients mood and anxiety remain improved and automotive service writer agrees that patient is stable on current me2/09/11: Continue current regimen and plans regimen. 09/12: Continue current regimen and plans 09/13: continue current regimen and plans 09/14: Continue tx. 09/16: Will continue with plan to begin Strattera. 09/17/23 Stratters 40 mg initiated today. Plan: CV Q 15 minute checks Start metoprolol ER 25 mg daily Continue Prozac 40mg daily for ptsd/depression Continue Remeron 7.5mg qhs for insomnia/depression Continue Abilify 5 mg q.h.s. Continue Thorazine 100mg daily prn for mod-severe anxiety continue prazosin 1 mg q.h.s. for nightmares Increase Methadone to 70mg (continue to titrate) Patient aware of chronic right hip necrosis which she says has been going on for over a year; says she knows she needs a hip replacement XR/XR hip RT w PEL1V FINDINGS: End-stage right hip, with marked sclerosis and destruction of the right femoral head again observed. Acetabular protrusio again observed. No acute findings. Left hip intact as is the pelvis. IMPRESSION:End-stage right hip. No substantial change. XR/XR knee RT 4V FINDINGS:Diffuse osteopenia but no fracture or destructive process. No joint effusion. Joint spaces appear well preserved. No erosions. IMPRESSION: Unremarkable study past med trials recorded: Abilify 20 mg Depakote ER 250 mg Mirtazapine 7.5 mg Prazosin 1 mg q.h.s. Sumatriptan 50 mgTrazodone 100 mg Patient educated on: medication risk/benefits and therapeutic strategies Informed Consent: understands Reason for continued inpatient stay Substantial Risk for: rapid decompensation Time Spent With Patient Time: Total time managing care of this patient today ____ minutes.
[2023-09-17 18:00] VITALS: BP 118/65; PULSE 100; RESP 18; TEMP 36.6; O2SAT 98
[2023-09-17] MEDS: Mirtazapine 7.5 MG TABLET PO (19:43)
[2023-09-17] MEDS: Prazosin HCL 1 MG CAPSULE PO (19:43)
[2023-09-17] MEDS: ARIPiprazole 5 MG TABLET PO (19:44)
[2023-09-17] MEDS: traZODone HCL 50 MG TABLET PO (19:44)
[2023-09-18 08:30] VITALS: RESP 18
[2023-09-18] MEDS: FLUoxetine HCl 20 MG CAPSULE 40 MG PO (09:46)
[2023-09-18] MEDS: methADONE HCl 20 MG/2 ML ORAL.CONC 80 MG PO (09:46)
[2023-09-18] MEDS: chlorproMAZINE HCl 100 MG TABLET PO (13:03)
--- NOTE | 2023-09-18 14:52 | HO.PSYCHPN ---
Subjective Subjective Date of Service: 09/18/23 Reason For Visit: Depression/SI, opiate use disorder, polysubstance Interim History: Patient seen and discussed. Patient was in her room laying in bed. She was alert. Said she feels not too bad today. She reports feeling improved since being admitted. She is awaiting [facility] bed. She is tolerating her medications. Review of Systems Review of Systems hip pain, decrease in mobility Yes all other systems are reviewed and are negative and Unobtainable due to mental status Mental Status Exam Mental Status Exam Narrative: In today's visit she is alert, oriented and pleasant. Normal speech. Moderate eye contact. Appropriate affect. No signs of psychosis. Cognitively intact. No SI. Anxiety about not having a potential placement. Patient Appearance: Fatigued Patient Orientation: Person, Place, Time and Situation Level of Consciousness: Alert Patient Behavior: Talkative, Cooperative and Good Eye Contact Mood Description: Withdrawn, Depressed and Anxious Affect Description: Flat Patient Cognition Impaired: No Ability to Follow Directions: Good Speech Pattern: Spontaneous Speech Memory Description: Episodic Impaired Diagnostics Vital Signs (24Hr): Vital Signs - 24 hr 09/17/23 18:00 09/18/23 08:30 Temperature 97.8 F Pulse Rate 100 Respiratory Rate 18 18 Blood Pressure 118/65 Pulse Oximetry 98 Oxygen Delivery Method Room Air BMI result Body Mass Index 26.8 Labs 09/01/23 09:44 09/01/23 09:44 Imaging Radiology Impressions: ITS Impressions Hip/Pelvis X-Ray 09/01/23 08:13 IMPRESSION: End-stage right hip. No substantial change. Knee X-Ray 09/01/23 08:13 IMPRESSION: Unremarkable study. Medications Medications Current Medications Acetaminophen (Acetaminophen 325 Mg Tablet) 650 mg PO Q6H PRN PRN Reason: Headache/Pain Mild Scale (1-3) Last Admin: 09/01/23 19:37 Dose: 650 mg Al Hydroxide/Mg Hydroxide (Magnesium Hydrox/Alum Hydrox 30 Ml Oral.Susp) 30 ml PO Q6H PRN PRN Reason: Heartburn/Nausea Albuterol Sulfate (Albuterol Sulfate 90 Mcg 8 Gm Inhaler) 2 puff INHALE RQ4H PRN PRN Reason: Shortness of Breath Aripiprazole (Aripiprazole 5 Mg Tablet) 5 mg PO BEDTIME KAITY Last Admin: 09/17/23 19:44 Dose: 5 mg Benztropine Mesylate (Benztropine Mesylate 0.5 Mg Tablet) 0.5 mg PO TID PRN PRN Reason: Extrapyramidal Effects Chlorpromazine HCl (Chlorpromazine Hcl 100 Mg Tablet) 100 mg PO BID PRN PRN Reason: moderate to severe anxiety Last Admin: 09/18/23 13:03 Dose: 100 mg Clonidine HCl (Clonidine Hcl 0.1 Mg Tablet) 0.1 mg PO TID PRN; Protocol PRN Reason: withdrawal Last Admin: 09/09/23 19:43 Dose: 0.1 mg Fluoxetine HCl (Fluoxetine Hcl 20 Mg Capsule) 40 mg PO DAILY KAITY Last Admin: 09/18/23 09:46 Dose: 40 mg Hydroxyzine HCl (Hydroxyzine Hcl 25 Mg Tablet) 25 mg PO Q6H PRN PRN Reason: Anxiety Last Admin: 09/10/23 20:46 Dose: 25 mg Magnesium Hydroxide (Milk Of Magnesia 30 Ml Oral.Susp) 30 ml PO DAILY PRN PRN Reason: Constipation Last Admin: 09/08/23 12:09 Dose: 30 ml Methadone HCl (Methadone Hcl 20 Mg/2 Ml Oral.Conc) 80 mg PO DAILY KAITY Last Admin: 09/18/23 09:46 Dose: 80 mg Metoprolol Succinate (Metoprolol Succinate Er 25 Mg Tab.Er.24h) 25 mg PO DAILY KAITY; Protocol Last Admin: 09/18/23 09:48 Dose: Not Given Mirtazapine (Mirtazapine 7.5 Mg Tablet) 7.5 mg PO BEDTIME KAITY Last Admin: 09/17/23 19:43 Dose: 7.5 mg Nicotine (Nicotine 21 Mg Patch.Td24) 21 mg TRANSDERMA DAILY KAITY Last Admin: 09/18/23 09:47 Dose: Not Given Pt Own (Atomoxetine (Hcl 40 Mg Capsule)) 40 mg PO DAILY KAITY Last Admin: 09/18/23 09:46 Dose: 40 mg Prazosin HCl (Prazosin Hcl 1 Mg Capsule) 1 mg PO BEDTIME KAITY; Protocol Last Admin: 09/17/23 19:43 Dose: 1 mg Trazodone HCl (Trazodone Hcl 50 Mg Tablet) 50 mg PO BEDTIME MRX1 PRN PRN Reason: Insomnia Last Admin: 09/17/23 19:44 Dose: 50 mg Allergies Allergies Allergy/AdvReac Type Severity Reaction Status Date / Time Penicillins [PCN] Allergy Mild HIVES Verified 01/26/22 11:04 amoxicillin [AMOXICILLIN] Allergy Unknown HIVES Verified 01/26/22 11:04 bee pollen [BEE STINGS] Allergy Unknown SWELLING Verified 01/26/22 11:04 bismuth subsalicylate Allergy Unknown VOMITTING Verified 01/26/22 11:04 [From PEPTO-BISMOL] Assessment & Plan Assessment & Plan (1) PTSD (post-traumatic stress disorder): Status: Acute Code(s): F43.10 - Post-traumatic stress disorder, unspecified (2) Depression: Status: Acute Code(s): F32.A - Depression, unspecified (3) Aseptic necrosis of bone of right hip: Status: Acute Code(s): M87.051 - Idiopathic aseptic necrosis of right femur (4) Opioid use disorder: Status: Acute Code(s): F11.90 - Opioid use, unspecified, uncomplicated (5) Cocaine use disorder: Status: Acute Code(s): F14.10 - Cocaine abuse, uncomplicated (6) Amphetamine use disorder, moderate: Status: Acute Code(s): F15.20 - Other stimulant dependence, uncomplicated Plan Patient is a 32-year-old female with history of PTSD, polysubstance abuse including opiates, cocaine, amphetamines, Hep C, chronic right hip necrosis who presents with SI plan to jump in front of a car. Patient is having withdrawal symptoms, not wanting to talk much and reticent on approach. However she says she wants to get back on Abilify and Zyprexa to help her back feelings go away. She denies any AVH and mostly just endorses ongoing PTSD symptoms including nightmares for which she agrees to try prazosin. Patient asks if she can rest now talk more tomorrow. Patient asked to be started on methadone. Commercial Sewing Instructor reviewed medication history and patient said she wants to be back on Abilify though she could only say it could help with PTSD; also asked for Zyprexa which was started as a p.r.n. on the unit, to be increased. Hospital course: 09/03 More talkative interactive today. Still depressed but feeling a little better. Says prazosin it limited nightmares last night. Still in withdrawal but not as bad No hx of manic episodes; no AVH; significant PTSD symptoms including intermittent disssociative episodes Discussed medication history in more detail. Patient wants to get back on remeron which helped w/ insomnia; however she felt it did not adequately address PTSD and after discussing risks/side effects of medication regimens she would like to get on Prozac to which editorial writer agreed. In addition to staying on Abilify albeit lower dose than previously, she asks for Thorazine as a p.r.n.. She says her PTSD/anxiety is typically much worse in the afternoon and says Thorazine has helped in the past. She has been taking p.r.n. Zyprexa which she does not find helpful. 09/06 little better; still very anxious, cravings; increasing prozac and methadone 09/07 continued struggles with anxiety and depression; wants Prozac increased to 40 mg even though this is a quick titration, patient does not want to risk being underdosed (understands risks quick titration). Discussed groups. Patient wants to go but has been struggling with anxiety. Will push herself to attend. -will consider increasing Abilify -will consider Topamax (or baclofen) at some point for cocaine cravings (no hx of glaucoma, kidney stone) 09/08 patient remains improving, attending groups, in good behavior and impulse control, and appropriate with peers and staff. Feels that her mood is getting little better. Anxiety a little less. Still PTSD flashbacks but she finds she is able to cope right now. Very hopeful about getting into a program. Still lot of cravings for opiates and feeling some withdrawal 09/09 EKG/QTC WNL; will continue to titrate Haldol; patient remains engaged in treatment, getting along well with others. Again discussed metoprolol which she says she did not get yesterday but has been on in the past and wants to get back on it for daytime anxiety 09/10 doing well; friendly, engaged in treatment, insightful...making good use of resources available to her on the unit. Very much wants a program and sobriety. Feels good about current med regimen. Sleeping and eating well. Since medication changes made, patients mood and anxiety remain improved and editorial writer agrees that patient is stable on current me2/2/17: Continue current regimen and plans regimen. 2/18: Continue current regimen and plans 09/13: continue current regimen and plans 09/14: Continue tx. 09/16: Will continue with plan to begin Strattera. 09/17/23 Stratters 40 mg initiated today. 09/18: Continue current management and treatment plan. Plan: CV Q 15 minute checks Start metoprolol ER 25 mg daily Continue Prozac 40mg daily for ptsd/depression Continue Remeron 7.5mg qhs for insomnia/depression Continue Abilify 5 mg q.h.s. Continue Thorazine 100mg daily prn for mod-severe anxiety continue prazosin 1 mg q.h.s. for nightmares Increase Methadone to 70mg (continue to titrate) Patient aware of chronic right hip necrosis which she says has been going on for over a year; says she knows she needs a hip replacement XR/XR hip RT w PEL1V FINDINGS: End-stage right hip, with marked sclerosis and destruction of the right femoral head again observed. Acetabular protrusio again observed. No acute findings. Left hip intact as is the pelvis. IMPRESSION:End-stage right hip. No substantial change. XR/XR knee RT 4V FINDINGS:Diffuse osteopenia but no fracture or destructive process. No joint effusion. Joint spaces appear well preserved. No erosions. IMPRESSION: Unremarkable study past med trials recorded: Abilify 20 mg Depakote ER 250 mg Mirtazapine 7.5 mg Prazosin 1 mg q.h.s. Sumatriptan 50 mgTrazodone 100 mg Reason for continued inpatient stay Substantial Risk for: harm to self, inability to function and rapid decompensation Time Spent With Patient Time: Total time managing care of this patient today ____ minutes.
[2023-09-18 16:45] VITALS: BP 111/73; PULSE 102; RESP 16; TEMP 36.6; O2SAT 98
[2023-09-18] MEDS: traZODone HCL 50 MG TABLET PO (20:23)
[2023-09-18] MEDS: Prazosin HCL 1 MG CAPSULE PO (20:23)
[2023-09-18] MEDS: ARIPiprazole 5 MG TABLET PO (20:24)
[2023-09-18] MEDS: Mirtazapine 7.5 MG TABLET PO (20:24)
[2023-09-19 08:15] VITALS: RESP 18
[2023-09-19] MEDS: FLUoxetine HCl 20 MG CAPSULE 40 MG PO (08:42)
[2023-09-19] MEDS: methADONE HCl 20 MG/2 ML ORAL.CONC 80 MG PO (08:42)
--- NOTE | 2023-09-19 14:48 | HO.PSYCHPN ---
Subjective Subjective Date of Service: 09/19/23 Reason For Visit: Depression/SI, opiate use disorder, polysubstance Interim History: Patient seen and discussed. Patient was in her room. Says her plan is to call programs tomorrow because she says she won't do well if she is homeless. She was alert. Said she feels not too bad today. She reports feeling improved since being admitted. She is awaiting [facility] bed. She is tolerating her medications. Review of Systems Review of Systems hip pain, decrease in mobility Yes all other systems are reviewed and are negative and Unobtainable due to mental status Mental Status Exam Mental Status Exam Narrative: In today's visit she is alert, oriented and pleasant. Normal speech. Moderate eye contact. Appropriate affect. No signs of psychosis. Cognitively intact. No SI. Anxiety about not having a potential placement. Patient Appearance: Fatigued Patient Orientation: Person, Place, Time and Situation Level of Consciousness: Alert Patient Behavior: Talkative, Cooperative and Good Eye Contact Mood Description: Withdrawn, Depressed and Anxious Affect Description: Flat Patient Cognition Impaired: No Ability to Follow Directions: Good Speech Pattern: Spontaneous Speech Memory Description: Episodic Impaired Diagnostics Vital Signs (24Hr): Vital Signs - 24 hr 09/18/23 16:45 09/19/23 08:15 Temperature 97.9 F Pulse Rate 102 H Respiratory Rate 16 18 Blood Pressure 111/73 Pulse Oximetry 98 Oxygen Delivery Method Room Air BMI result Body Mass Index 26.8 Labs 09/01/23 09:44 09/01/23 09:44 Imaging Radiology Impressions: ITS Impressions Hip/Pelvis X-Ray 09/01/23 08:13 IMPRESSION: End-stage right hip. No substantial change. Knee X-Ray 09/01/23 08:13 IMPRESSION: Unremarkable study. Medications Medications Current Medications Acetaminophen (Acetaminophen 325 Mg Tablet) 650 mg PO Q6H PRN PRN Reason: Headache/Pain Mild Scale (1-3) Last Admin: 09/01/23 19:37 Dose: 650 mg Al Hydroxide/Mg Hydroxide (Magnesium Hydrox/Alum Hydrox 30 Ml Oral.Susp) 30 ml PO Q6H PRN PRN Reason: Heartburn/Nausea Albuterol Sulfate (Albuterol Sulfate 90 Mcg 8 Gm Inhaler) 2 puff INHALE RQ4H PRN PRN Reason: Shortness of Breath Aripiprazole (Aripiprazole 5 Mg Tablet) 5 mg PO BEDTIME KAITY Last Admin: 09/18/23 20:24 Dose: 5 mg Benztropine Mesylate (Benztropine Mesylate 0.5 Mg Tablet) 0.5 mg PO TID PRN PRN Reason: Extrapyramidal Effects Chlorpromazine HCl (Chlorpromazine Hcl 100 Mg Tablet) 100 mg PO BID PRN PRN Reason: moderate to severe anxiety Last Admin: 09/18/23 13:03 Dose: 100 mg Clonidine HCl (Clonidine Hcl 0.1 Mg Tablet) 0.1 mg PO TID PRN; Protocol PRN Reason: withdrawal Last Admin: 09/09/23 19:43 Dose: 0.1 mg Fluoxetine HCl (Fluoxetine Hcl 20 Mg Capsule) 40 mg PO DAILY KAITY Last Admin: 09/19/23 08:42 Dose: 40 mg Hydroxyzine HCl (Hydroxyzine Hcl 25 Mg Tablet) 25 mg PO Q6H PRN PRN Reason: Anxiety Last Admin: 09/10/23 20:46 Dose: 25 mg Magnesium Hydroxide (Milk Of Magnesia 30 Ml Oral.Susp) 30 ml PO DAILY PRN PRN Reason: Constipation Last Admin: 09/08/23 12:09 Dose: 30 ml Methadone HCl (Methadone Hcl 20 Mg/2 Ml Oral.Conc) 80 mg PO DAILY [facility] Last Admin: 09/19/23 08:42 Dose: 80 mg Metoprolol Succinate (Metoprolol Succinate Er 25 Mg Tab.Er.24h) 25 mg PO DAILY [facility]AITY; Protocol Last Admin: 09/19/23 08:44 Dose: Not Given Mirtazapine (Mirtazapine 7.5 Mg Tablet) 7.5 mg PO BEDTIME KA[facility] Last Admin: 09/18/23 20:24 Dose: 7.5 mg Nicotine (Nicotine 21 Mg Patch.Td24) 21 mg TRANSDERMA DAILY [facility] Last Admin: 09/19/23 08:44 Dose: Not Given Pt Own (Atomoxetine (Hcl 40 Mg Capsule)) 40 mg PO DAILY KA[facility] Last Admin: 09/19/23 08:57 Dose: 40 mg Prazosin HCl (Prazosin Hcl 1 Mg Capsule) 1 mg PO BEDTIME [facility]; Protocol Last Admin: 09/18/23 20:23 Dose: 1 mg Trazodone HCl (Trazodone Hcl 50 Mg Tablet) 50 mg PO BEDTIME MRX1 PRN PRN Reason: Insomnia Last Admin: 09/18/23 20:23 Dose: 50 mg Allergies Allergies Allergy/AdvReac Type Severity Reaction Status Date / Time Penicillins [PCN] Allergy Mild HIVES Verified 01/26/22 11:04 amoxicillin [AMOXICILLIN] Allergy Unknown HIVES Verified 01/26/22 11:04 bee pollen [BEE STINGS] Allergy Unknown SWELLING Verified 01/26/22 11:04 bismuth subsalicylate Allergy Unknown VOMITTING Verified 01/26/22 11:04 [From PEPTO-BISMOL] Assessment & Plan Assessment & Plan (1) PTSD (post-traumatic stress disorder): Status: Acute Code(s): F43.10 - Post-traumatic stress disorder, unspecified (2) Depression: Status: Acute Code(s): F32.A - Depression, unspecified (3) Aseptic necrosis of bone of right hip: Status: Acute Code(s): M87.051 - Idiopathic aseptic necrosis of right femur (4) Opioid use disorder: Status: Acute Code(s): F11.90 - Opioid use, unspecified, uncomplicated (5) Cocaine use disorder: Status: Acute Code(s): F14.10 - Cocaine abuse, uncomplicated (6) Amphetamine use disorder, moderate: Status: Acute Code(s): F15.20 - Other stimulant dependence, uncomplicated Plan Patient is a 32-year-old female with history of PTSD, polysubstance abuse including opiates, cocaine, amphetamines, Hep C, chronic right hip necrosis who presents with SI plan to jump in front of a car. Patient is having withdrawal symptoms, not wanting to talk much and reticent on approach. However she says she wants to get back on Abilify and Zyprexa to help her back feelings go away. She denies any AVH and mostly just endorses ongoing PTSD symptoms including nightmares for which she agrees to try prazosin. Patient asks if she can rest now talk more tomorrow. Patient asked to be started on methadone. Vehicle Safety Inspector reviewed medication history and patient said she wants to be back on Abilify though she could only say it could help with PTSD; also asked for Zyprexa which was started as a p.r.n. on the unit, to be increased. Hospital course: 09/03 More talkative interactive today. Still depressed but feeling a little better. Says prazosin it limited nightmares last night. Still in withdrawal but not as bad No hx of manic episodes; no AVH; significant PTSD symptoms including intermittent disssociative episodes Discussed medication history in more detail. Patient wants to get back on remeron which helped w/ insomnia; however she felt it did not adequately address PTSD and after discussing risks/side effects of medication regimens she would like to get on Prozac to which adjusto writer operator agreed. In addition to staying on Abilify albeit lower dose than previously, she asks for Thorazine as a p.r.n.. She says her PTSD/anxiety is typically much worse in the afternoon and says Thorazine has helped in the past. She has been taking p.r.n. Zyprexa which she does not find helpful. 09/06 little better; still very anxious, cravings; increasing prozac and methadone 09/07 continued struggles with anxiety and depression; wants Prozac increased to 40 mg even though this is a quick titration, patient does not want to risk being underdosed (understands risks quick titration). Discussed groups. Patient wants to go but has been struggling with anxiety. Will push herself to attend. -will consider increasing Abilify -will consider Topamax (or baclofen) at some point for cocaine cravings (no hx of glaucoma, kidney stone) 09/08 patient remains improving, attending groups, in good behavior and impulse control, and appropriate with peers and staff. Feels that her mood is getting little better. Anxiety a little less. Still PTSD flashbacks but she finds she is able to cope right now. Very hopeful about getting into a program. Still lot of cravings for opiates and feeling some withdrawal 09/09 EKG/QTC WNL; will continue to titrate Haldol; patient remains engaged in treatment, getting along well with others. Again discussed metoprolol which she says she did not get yesterday but has been on in the past and wants to get back on it for daytime anxiety 09/10 doing well; friendly, engaged in treatment, insightful...making good use of resources available to her on the unit. Very much wants a program and sobriety. Feels good about current med regimen. Sleeping and eating well. Since medication changes made, patients mood and anxiety remain improved and adjusto writer operator agrees that patient is stable on current me2/09/11: Continue current regimen and plans regimen. 09/12: Continue current regimen and plans 09/13: continue current regimen and plans 09/14: Continue tx. 09/16: Will continue with plan to begin Strattera. 09/17/23 Stratters 40 mg initiated today. 09/18: Continue current management and treatment plan. 09/19: Continue current management and treatment plan. Plan: CV Q 15 minute checks Start metoprolol ER 25 mg daily Continue Prozac 40mg daily for ptsd/depression Continue Remeron 7.5mg qhs for insomnia/depression Continue Abilify 5 mg q.h.s. Continue Thorazine 100mg daily prn for mod-severe anxiety continue prazosin 1 mg q.h.s. for nightmares Increase Methadone to 70mg (continue to titrate) Patient aware of chronic right hip necrosis which she says has been going on for over a year; says she knows she needs a hip replacement XR/XR hip RT w PEL1V FINDINGS: End-stage right hip, with marked sclerosis and destruction of the right femoral head again observed. Acetabular protrusio again observed. No acute findings. Left hip intact as is the pelvis. IMPRESSION:End-stage right hip. No substantial change. XR/XR knee RT 4V FINDINGS:Diffuse osteopenia but no fracture or destructive process. No joint effusion. Joint spaces appear well preserved. No erosions. IMPRESSION: Unremarkable study past med trials recorded: Abilify 20 mg Depakote ER 250 mg Mirtazapine 7.5 mg Prazosin 1 mg q.h.s. Sumatriptan 50 mgTrazodone 100 mg Reason for continued inpatient stay Substantial Risk for: harm to self, inability to function and rapid decompensation Time Spent With Patient Time: Total time managing care of this patient today ____ minutes.
[2023-09-19] MEDS: chlorproMAZINE HCl 100 MG TABLET PO (16:50)
[2023-09-19 17:08] VITALS: BP 103/61; PULSE 105; RESP 18; TEMP 36.7; O2SAT 96
[2023-09-19] MEDS: Prazosin HCL 1 MG CAPSULE PO (20:31)
[2023-09-19] MEDS: Mirtazapine 7.5 MG TABLET PO (20:31)
[2023-09-19] MEDS: ARIPiprazole 5 MG TABLET PO (20:31)
[2023-09-19] MEDS: traZODone HCL 50 MG TABLET PO (20:55)
[2023-09-20] MEDS: methADONE HCl 20 MG/2 ML ORAL.CONC 80 MG PO (08:46)
[2023-09-20] MEDS: FLUoxetine HCl 20 MG CAPSULE 40 MG PO (08:46)
[2023-09-20] MEDS: Metoprolol Succinate ER 25 MG TAB.ER.24H PO (08:46)
[2023-09-20 09:00] VITALS: BP 107/68; PULSE 86; RESP 16; TEMP 36.4; O2SAT 95
[2023-09-20] MEDS: chlorproMAZINE HCl 100 MG TABLET PO ×2 (10:14→15:24)
[2023-09-20 17:27] VITALS: BP 103/67; PULSE 106; RESP 18; TEMP 36.7; O2SAT 98
[2023-09-20] MEDS: Mirtazapine 7.5 MG TABLET PO (20:18)
[2023-09-20] MEDS: ARIPiprazole 5 MG TABLET PO (20:18)
[2023-09-20] MEDS: Prazosin HCL 1 MG CAPSULE PO (20:18)
[2023-09-20] MEDS: traZODone HCL 50 MG TABLET PO ×2 (20:18→20:19)
--- NOTE | 2023-09-20 21:55 | HO.PSYCHPN ---
Subjective Subjective Date of Service: 09/20/23 Reason For Visit: Depression/SI, opiate use disorder, polysubstance Subjective Notes: Conditional Voluntary Healthcare Proxy: No Guardianship: No Medical Problems Affecting Mental Status: No Interim History: Tolerating Strattera. Interviewing with programs and feeling positive and hopeful about acceptance. Intermittently in milieu and social with peers. Medication Compliance: Yes Side effects from medications: No Attending Groups: Intermittent Review of Systems Acute medical concerns: No Medical Review of Systems: unchanged Review of Systems Review of Systems Yes all other systems are reviewed and are negative Mental Status Exam Mental Status Exam Narrative: In today's visit she is alert, oriented and pleasant. Normal speech. Moderate eye contact. Appropriate affect. No signs of psychosis. Cognitively intact. No SI. Anxiety about placement Patient Appearance: Appropriate Patient Orientation: Person, Place, Time and Situation Level of Consciousness: Alert Patient Behavior: Talkative, Cooperative and Good Eye Contact Mood Description: Withdrawn, Depressed and Anxious Affect Description: Flat Patient Cognition Impaired: No Ability to Follow Directions: Good Speech Pattern: Spontaneous Speech Memory Description: Episodic Impaired Thought Content: positive for Perseveration and positive for Suicidal Ideation (denies) Judgement: Good Diagnostics Vital Signs (24Hr): Vital Signs - 24 hr 09/20/23 09:00 09/20/23 17:27 Temperature 97.6 F 98.1 F Pulse Rate 86 106 H Respiratory Rate 16 18 Blood Pressure 107/68 103/67 Pulse Oximetry 95 98 Oxygen Delivery Method Room Air Room Air BMI result Body Mass Index 26.8 Labs 09/01/23 09:44 09/01/23 09:44 Imaging Radiology Impressions: ITS Impressions Hip/Pelvis X-Ray 09/01/23 08:13 IMPRESSION: End-stage right hip. No substantial change. Knee X-Ray 09/01/23 08:13 IMPRESSION: Unremarkable study. Medications Medications Current Medications Acetaminophen (Acetaminophen 325 Mg Tablet) 650 mg PO Q6H PRN PRN Reason: Headache/Pain Mild Scale (1-3) Last Admin: 09/01/23 19:37 Dose: 650 mg Al Hydroxide/Mg Hydroxide (Magnesium Hydrox/Alum Hydrox 30 Ml Oral.Susp) 30 ml PO Q6H PRN PRN Reason: Heartburn/Nausea Albuterol Sulfate (Albuterol Sulfate 90 Mcg 8 Gm Inhaler) 2 puff INHALE RQ4H PRN PRN Reason: Shortness of Breath Aripiprazole (Aripiprazole 5 Mg Tablet) 5 mg PO BEDTIME [facility] Last Admin: 09/20/23 20:18 Dose: 5 mg Benztropine Mesylate (Benztropine Mesylate 0.5 Mg Tablet) 0.5 mg PO TID PRN PRN Reason: Extrapyramidal Effects Chlorpromazine HCl (Chlorpromazine Hcl 100 Mg Tablet) 100 mg PO BID PRN PRN Reason: moderate to severe anxiety Last Admin: 09/20/23 15:24 Dose: 100 mg Clonidine HCl (Clonidine Hcl 0.1 Mg Tablet) 0.1 mg PO TID PRN; Protocol PRN Reason: withdrawal Last Admin: 09/09/23 19:43 Dose: 0.1 mg Fluoxetine HCl (Fluoxetine Hcl 20 Mg Capsule) 40 mg PO DAILY [facility] Last Admin: 09/20/23 08:46 Dose: 40 mg Hydroxyzine HCl (Hydroxyzine Hcl 25 Mg Tablet) 25 mg PO Q6H PRN PRN Reason: Anxiety Last Admin: 09/10/23 20:46 Dose: 25 mg Magnesium Hydroxide (Milk Of Magnesia 30 Ml Oral.Susp) 30 ml PO DAILY PRN PRN Reason: Constipation Last Admin: 09/08/23 12:09 Dose: 30 ml Methadone HCl (Methadone Hcl 20 Mg/2 Ml Oral.Conc) 80 mg PO DAILY [facility] Last Admin: 09/20/23 08:46 Dose: 80 mg Metoprolol Succinate (Metoprolol Succinate Er 25 Mg Tab.Er.24h) 25 mg PO DAILY [facility]; Protocol Last Admin: 09/20/23 08:46 Dose: 25 mg Mirtazapine (Mirtazapine 7.5 Mg Tablet) 7.5 mg PO BEDTIME [facility] Last Admin: 09/20/23 20:18 Dose: 7.5 mg Nicotine (Nicotine 21 Mg Patch.Td24) 21 mg TRANSDERMA DAILY [facility] Last Admin: 09/20/23 08:47 Dose: Not Given Pt Own (Atomoxetine (Hcl 40 Mg Capsule)) 40 mg PO DAILY [facility] Last Admin: 09/20/23 08:48 Dose: 40 mg Prazosin HCl (Prazosin Hcl 1 Mg Capsule) 1 mg PO BEDTIME [facility]; Protocol Last Admin: 09/20/23 20:18 Dose: 1 mg Trazodone HCl (Trazodone Hcl 50 Mg Tablet) 50 mg PO BEDTIME MRX1 PRN PRN Reason: Insomnia Last Admin: 09/20/23 20:19 Dose: 50 mg Allergies Allergies Allergy/AdvReac Type Severity Reaction Status Date / Time Penicillins [PCN] Allergy Mild HIVES Verified 01/26/22 11:04 amoxicillin [AMOXICILLIN] Allergy Unknown HIVES Verified 01/26/22 11:04 bee pollen [BEE STINGS] Allergy Unknown SWELLING Verified 01/26/22 11:04 bismuth subsalicylate Allergy Unknown VOMITTING Verified 01/26/22 11:04 [From PEPTO-BISMOL] Assessment & Plan Assessment & Plan (1) PTSD (post-traumatic stress disorder): Status: Acute Code(s): F43.10 - Post-traumatic stress disorder, unspecified (2) Depression: Status: Acute Code(s): F32.A - Depression, unspecified (3) Aseptic necrosis of bone of right hip: Status: Acute Code(s): M87.051 - Idiopathic aseptic necrosis of right femur (4) Opioid use disorder: Status: Acute Code(s): F11.90 - Opioid use, unspecified, uncomplicated (5) Cocaine use disorder: Status: Acute Code(s): F14.10 - Cocaine abuse, uncomplicated (6) Amphetamine use disorder, moderate: Status: Acute Code(s): F15.20 - Other stimulant dependence, uncomplicated Plan Patient is a 32-year-old female with history of PTSD, polysubstance abuse including opiates, cocaine, amphetamines, Hep C, chronic right hip necrosis who presents with SI plan to jump in front of a car. Patient is having withdrawal symptoms, not wanting to talk much and reticent on approach. However she says she wants to get back on Abilify and Zyprexa to help her back feelings go away. She denies any AVH and mostly just endorses ongoing PTSD symptoms including nightmares for which she agrees to try prazosin. Patient asks if she can rest now talk more tomorrow. Patient asked to be started on methadone. Driver Wheelchair reviewed medication history and patient said she wants to be back on Abilify though she could only say it could help with PTSD; also asked for Zyprexa which was started as a p.r.n. on the unit, to be increased. Hospital course: 09/03 More talkative interactive today. Still depressed but feeling a little better. Says prazosin it limited nightmares last night. Still in withdrawal but not as bad No hx of manic episodes; no AVH; significant PTSD symptoms including intermittent disssociative episodes Discussed medication history in more detail. Patient wants to get back on remeron which helped w/ insomnia; however she felt it did not adequately address PTSD and after discussing risks/side effects of medication regimens she would like to get on Prozac to which expert medical writer agreed. In addition to staying on Abilify albeit lower dose than previously, she asks for Thorazine as a p.r.n.. She says her PTSD/anxiety is typically much worse in the afternoon and says Thorazine has helped in the past. She has been taking p.r.n. Zyprexa which she does not find helpful. 09/06 little better; still very anxious, cravings; increasing prozac and methadone 09/07 continued struggles with anxiety and depression; wants Prozac increased to 40 mg even though this is a quick titration, patient does not want to risk being underdosed (understands risks quick titration). Discussed groups. Patient wants to go but has been struggling with anxiety. Will push herself to attend. -will consider increasing Abilify -will consider Topamax (or baclofen) at some point for cocaine cravings (no hx of glaucoma, kidney stone) 09/08 patient remains improving, attending groups, in good behavior and impulse control, and appropriate with peers and staff. Feels that her mood is getting little better. Anxiety a little less. Still PTSD flashbacks but she finds she is able to cope right now. Very hopeful about getting into a program. Still lot of cravings for opiates and feeling some withdrawal 09/09 EKG/QTC WNL; will continue to titrate Haldol; patient remains engaged in treatment, getting along well with others. Again discussed metoprolol which she says she did not get yesterday but has been on in the past and wants to get back on it for daytime anxiety 09/10 doing well; friendly, engaged in treatment, insightful...making good use of resources available to her on the unit. Very much wants a program and sobriety. Feels good about current med regimen. Sleeping and eating well. Since medication changes made, patients mood and anxiety remain improved and expert medical writer agrees that patient is stable on current me2/09/11: Continue current regimen and plans regimen. 09/12: Continue current regimen and plans 09/13: continue current regimen and plans 09/14: Continue tx. 09/16: Will continue with plan to begin Strattera. 09/17/23 Strattera 40 mg initiated today. 09/18: Continue current management and treatment plan. 09/19: Continue current management and treatment plan. 09/20: Continue treatment. Probable discharge this week to program Plan: CV Q 15 minute checks Start metoprolol ER 25 mg daily Continue Prozac 40mg daily for ptsd/depression Continue Remeron 7.5mg qhs for insomnia/depression Continue Abilify 5 mg q.h.s. Continue Thorazine 100mg daily prn for mod-severe anxiety continue prazosin 1 mg q.h.s. for nightmares Increase Methadone to 70mg (continue to titrate) Patient aware of chronic right hip necrosis which she says has been going on for over a year; says she knows she needs a hip replacement XR/XR hip RT w PEL1V FINDINGS: End-stage right hip, with marked sclerosis and destruction of the right femoral head again observed. Acetabular protrusio again observed. No acute findings. Left hip intact as is the pelvis. IMPRESSION:End-stage right hip. No substantial change. XR/XR knee RT 4V FINDINGS:Diffuse osteopenia but no fracture or destructive process. No joint effusion. Joint spaces appear well preserved. No erosions. IMPRESSION: Unremarkable study past med trials recorded: Abilify 20 mg Depakote ER 250 mg Mirtazapine 7.5 mg Prazosin 1 mg q.h.s. Sumatriptan 50 mgTrazodone 100 mg Informed Consent: understands Reason for continued inpatient stay Substantial Risk for: rapid decompensation Time Spent With Patient Time: Total time managing care of this patient today ____ minutes.
[2023-09-21 08:10] VITALS: BP 124/94; PULSE 94; RESP 16; TEMP 36.6; O2SAT 94
[2023-09-21] MEDS: FLUoxetine HCl 20 MG CAPSULE 40 MG PO (08:52)
[2023-09-21] MEDS: methADONE HCl 20 MG/2 ML ORAL.CONC 80 MG PO (08:52)
[2023-09-21] MEDS: Metoprolol Succinate ER 25 MG TAB.ER.24H PO (08:52)
--- NOTE | 2023-09-21 09:55 | HO.PSYCHPN ---
Subjective Subjective Date of Service: 09/21/23 Reason For Visit: Depression/SI, opiate use disorder, polysubstance Subjective Notes: Conditional Voluntary Healthcare Proxy: No Guardianship: No Medical Problems Affecting Mental Status: No Interim History: Pt with some anxiety and apprehension about new program. Talking with room-mate, peers, this underwriter mortgage loan- How do I do it right and not make any mistakes, I want it to work . Interactive, excited yet apprehensive and anxious about change. Attempting to organize questions, issues in transitioning. Medication Compliance: Yes Side effects from medications: No Attending Groups: Intermittent Review of Systems Acute medical concerns: No Medical Review of Systems: unchanged Review of Systems Review of Systems Yes all other systems are reviewed and are negative Mental Status Exam Mental Status Exam Patient Appearance: Appropriate Patient Orientation: Person, Place, Time and Situation Level of Consciousness: Alert Patient Behavior: Talkative and Good Eye Contact Mood Description: Apprehensive Affect Description: Apprehensive Patient Cognition Impaired: No Ability to Follow Directions: Good Speech Pattern: Spontaneous Speech Memory Description: Intact Hallucinations: None Delusions: Not Present Thought Content: positive for Perseveration, positive for Suicidal Ideation (denies) and positive for Homicidal Ideation (denies) Depressive Symptoms: Thoughts of /Suicide (denies) and Low Self Esteem Judgement: Good Diagnostics Vital Signs (24Hr): Vital Signs - 24 hr 09/20/23 17:27 Temperature 98.1 F Pulse Rate 106 H Respiratory Rate 18 Blood Pressure 103/67 Pulse Oximetry 98 Oxygen Delivery Method Room Air BMI result Body Mass Index 26.8 Labs 09/01/23 09:44 09/01/23 09:44 Imaging Radiology Impressions: ITS Impressions Hip/Pelvis X-Ray 09/01/23 08:13 IMPRESSION: End-stage right hip. No substantial change. Knee X-Ray 09/01/23 08:13 IMPRESSION: Unremarkable study. Medications Medications Current Medications Acetaminophen (Acetaminophen 325 Mg Tablet) 650 mg PO Q6H PRN PRN Reason: Headache/Pain Mild Scale (1-3) Last Admin: 09/01/23 19:37 Dose: 650 mg Al Hydroxide/Mg Hydroxide (Magnesium Hydrox/Alum Hydrox 30 Ml Oral.Susp) 30 ml PO Q6H PRN PRN Reason: Heartburn/Nausea Albuterol Sulfate (Albuterol Sulfate 90 Mcg 8 Gm Inhaler) 2 puff INHALE RQ4H PRN PRN Reason: Shortness of Breath Aripiprazole (Aripiprazole 5 Mg Tablet) 5 mg PO BEDTIME [facility] Last Admin: 09/20/23 20:18 Dose: 5 mg Benztropine Mesylate (Benztropine Mesylate 0.5 Mg Tablet) 0.5 mg PO TID PRN PRN Reason: Extrapyramidal Effects Chlorpromazine HCl (Chlorpromazine Hcl 100 Mg Tablet) 100 mg PO BID PRN PRN Reason: moderate to severe anxiety Last Admin: 09/20/23 15:24 Dose: 100 mg Clonidine HCl (Clonidine Hcl 0.1 Mg Tablet) 0.1 mg PO TID PRN; Protocol PRN Reason: withdrawal Last Admin: 09/09/23 19:43 Dose: 0.1 mg Fluoxetine HCl (Fluoxetine Hcl 20 Mg Capsule) 40 mg PO DAILY [facility] Last Admin: 09/21/23 08:52 Dose: 40 mg Hydroxyzine HCl (Hydroxyzine Hcl 25 Mg Tablet) 25 mg PO Q6H PRN PRN Reason: Anxiety Last Admin: 09/10/23 20:46 Dose: 25 mg Magnesium Hydroxide (Milk Of Magnesia 30 Ml Oral.Susp) 30 ml PO DAILY PRN PRN Reason: Constipation Last Admin: 09/08/23 12:09 Dose: 30 ml Methadone HCl (Methadone Hcl 20 Mg/2 Ml Oral.Conc) 80 mg PO DAILY [facility] Last Admin: 09/21/23 08:52 Dose: 80 mg Metoprolol Succinate (Metoprolol Succinate Er 25 Mg Tab.Er.24h) 25 mg PO DAILY [facility]; Protocol Last Admin: 09/21/23 08:52 Dose: 25 mg Mirtazapine (Mirtazapine 7.5 Mg Tablet) 7.5 mg PO BEDTIME [facility] Last Admin: 09/20/23 20:18 Dose: 7.5 mg Nicotine (Nicotine 21 Mg Patch.Td24) 21 mg TRANSDERMA DAILY [facility] Last Admin: 09/21/23 08:53 Dose: Not Given Pt Own (Atomoxetine (Hcl 40 Mg Capsule)) 40 mg PO DAILY [facility] Last Admin: 09/21/23 08:52 Dose: 40 mg Prazosin HCl (Prazosin Hcl 1 Mg Capsule) 1 mg PO BEDTIME [facility]; Protocol Last Admin: 09/20/23 20:18 Dose: 1 mg Trazodone HCl (Trazodone Hcl 50 Mg Tablet) 50 mg PO BEDTIME MRX1 PRN PRN Reason: Insomnia Last Admin: 09/20/23 20:19 Dose: 50 mg Allergies Allergies Allergy/AdvReac Type Severity Reaction Status Date / Time Penicillins [PCN] Allergy Mild HIVES Verified 01/26/22 11:04 amoxicillin [AMOXICILLIN] Allergy Unknown HIVES Verified 01/26/22 11:04 bee pollen [BEE STINGS] Allergy Unknown SWELLING Verified 01/26/22 11:04 bismuth subsalicylate Allergy Unknown VOMITTING Verified 01/26/22 11:04 [From PEPTO-BISMOL] Assessment & Plan Assessment & Plan (1) Aseptic necrosis of bone of right hip: Status: Acute Code(s): M87.051 - Idiopathic aseptic necrosis of right femur Plan Patient is a 32-year-old female with history of PTSD, polysubstance abuse including opiates, cocaine, amphetamines, Hep C, chronic right hip necrosis who presents with SI plan to jump in front of a car. Patient is having withdrawal symptoms, not wanting to talk much and reticent on approach. However she says she wants to get back on Abilify and Zyprexa to help her back feelings go away. She denies any AVH and mostly just endorses ongoing PTSD symptoms including nightmares for which she agrees to try prazosin. Patient asks if she can rest now talk more tomorrow. Patient asked to be started on methadone. [facility] Director reviewed medication history and patient said she wants to be back on Abilify though she could only say it could help with PTSD; also asked for Zyprexa which was started as a p.r.n. on the unit, to be increased. Hospital course: 09/03 More talkative interactive today. Still depressed but feeling a little better. Says prazosin it limited nightmares last night. Still in withdrawal but not as bad No hx of manic episodes; no AVH; significant PTSD symptoms including intermittent disssociative episodes Discussed medication history in more detail. Patient wants to get back on remeron which helped w/ insomnia; however she felt it did not adequately address PTSD and after discussing risks/side effects of medication regimens she would like to get on Prozac to which underwriter mortgage loan agreed. In addition to staying on Abilify albeit lower dose than previously, she asks for Thorazine as a p.r.n.. She says her PTSD/anxiety is typically much worse in the afternoon and says Thorazine has helped in the past. She has been taking p.r.n. Zyprexa which she does not find helpful. 09/06 little better; still very anxious, cravings; increasing prozac and methadone 09/07 continued struggles with anxiety and depression; wants Prozac increased to 40 mg even though this is a quick titration, patient does not want to risk being underdosed (understands risks quick titration). Discussed groups. Patient wants to go but has been struggling with anxiety. Will push herself to attend. -will consider increasing Abilify -will consider Topamax (or baclofen) at some point for cocaine cravings (no hx of glaucoma, kidney stone) 09/08 patient remains improving, attending groups, in good behavior and impulse control, and appropriate with peers and staff. Feels that her mood is getting little better. Anxiety a little less. Still PTSD flashbacks but she finds she is able to cope right now. Very hopeful about getting into a program. Still lot of cravings for opiates and feeling some withdrawal 09/09 EKG/QTC WNL; will continue to titrate Haldol; patient remains engaged in treatment, getting along well with others. Again discussed metoprolol which she says she did not get yesterday but has been on in the past and wants to get back on it for daytime anxiety 09/10 doing well; friendly, engaged in treatment, insightful...making good use of resources available to her on the unit. Very much wants a program and sobriety. Feels good about current med regimen. Sleeping and eating well. Since medication changes made, patients mood and anxiety remain improved and underwriter mortgage loan agrees that patient is stable on current me2/09/11: Continue current regimen and plans regimen. 09/12: Continue current regimen and plans 09/13: continue current regimen and plans 09/14: Continue tx. 09/16: Will continue with plan to begin Strattera. 09/17/23 Stratters 40 mg initiated today. 09/18: Continue current management and treatment plan. 09/19: Continue current management and treatment plan. Plan: CV Q 15 minute checks Start metoprolol ER 25 mg daily Continue Prozac 40mg daily for ptsd/depression Continue Remeron 7.5mg qhs for insomnia/depression Continue Abilify 5 mg q.h.s. Continue Thorazine 100mg daily prn for mod-severe anxiety continue prazosin 1 mg q.h.s. for nightmares Increase Methadone to 70mg (continue to titrate) Patient aware of chronic right hip necrosis which she says has been going on for over a year; says she knows she needs a hip replacement XR/XR hip RT w PEL1V FINDINGS: End-stage right hip, with marked sclerosis and destruction of the right femoral head again observed. Acetabular protrusio again observed. No acute findings. Left hip intact as is the pelvis. IMPRESSION:End-stage right hip. No substantial change. XR/XR knee RT 4V FINDINGS:Diffuse osteopenia but no fracture or destructive process. No joint effusion. Joint spaces appear well preserved. No erosions. IMPRESSION: Unremarkable study past med trials recorded: Abilify 20 mg Depakote ER 250 mg Mirtazapine 7.5 mg Prazosin 1 mg q.h.s. Sumatriptan 50 mgTrazodone 100 mg Patient educated on: therapeutic strategies Informed Consent: understands Reason for continued inpatient stay Substantial Risk for: stable for discharge Time Spent With Patient Time: Total time managing care of this patient today ____ minutes.
[2023-09-21] MEDS: Milk of Magnesia 30 ML ORAL.SUSP PO (11:24)
[2023-09-21] MEDS: chlorproMAZINE HCl 100 MG TABLET PO ×2 (11:24→17:14)
[2023-09-21] MEDS: Mirtazapine 7.5 MG TABLET PO (20:03)
[2023-09-21] MEDS: traZODone HCL 50 MG TABLET PO (20:03)
[2023-09-21] MEDS: ARIPiprazole 5 MG TABLET PO (20:03)
[2023-09-22 07:00] VITALS: RESP 18
[2023-09-22] MEDS: FLUoxetine HCl 20 MG CAPSULE 40 MG PO (08:45)
[2023-09-22] MEDS: methADONE HCl 20 MG/2 ML ORAL.CONC 80 MG PO (08:45)
[2023-09-22] MEDS: Docusate Sodium 100 MG CAPSULE PO ×2 (08:45→20:08)
[2023-09-22] MEDS: chlorproMAZINE HCl 100 MG TABLET PO (09:45)
--- NOTE | 2023-09-22 16:31 | HO.PSYCHPN ---
Subjective Subjective Date of Service: 09/22/23 Reason For Visit: Depression/SI, opiate use disorder, polysubstance Subjective Notes: Conditional Voluntary Healthcare Proxy: No Guardianship: No Medical Problems Affecting Mental Status: No Interim History: Preparing for discharge. Programatic changes to discharge plan- pt will transition to [facility] on . Review of medications and plan. She is accepting. Pt request for a cane to assist with mobility due to hip necrosis Medication Compliance: Yes Side effects from medications: No Attending Groups: No Review of Systems Acute medical concerns: No Medical Review of Systems: unchanged Review of Systems Review of Systems Yes all other systems are reviewed and are negative Mental Status Exam Mental Status Exam Patient Appearance: Appropriate Patient Orientation: Person, Place, Time and Situation Level of Consciousness: Alert Patient Behavior: Talkative and Good Eye Contact Mood Description: Apprehensive Affect Description: Apprehensive Patient Cognition Impaired: No Ability to Follow Directions: Good Speech Pattern: Spontaneous Speech Memory Description: Intact Hallucinations: None Delusions: Not Present Thought Content: positive for Perseveration, positive for Suicidal Ideation (denies) and positive for Homicidal Ideation (denies) Depressive Symptoms: Thoughts of /Suicide (denies) and Low Self Esteem Judgement: Good Diagnostics Vital Signs (24Hr): Vital Signs - 24 hr 09/22/23 07:00 Respiratory Rate 18 BMI result Body Mass Index 26.8 Labs 09/01/23 09:44 09/01/23 09:44 Imaging Radiology Impressions: ITS Impressions Hip/Pelvis X-Ray 09/01/23 08:13 IMPRESSION: End-stage right hip. No substantial change. Knee X-Ray 09/01/23 08:13 IMPRESSION: Unremarkable study. Medications Medications Current Medications Acetaminophen (Acetaminophen 325 Mg Tablet) 650 mg PO Q6H PRN PRN Reason: Headache/Pain Mild Scale (1-3) Last Admin: 09/01/23 19:37 Dose: 650 mg Al Hydroxide/Mg Hydroxide (Magnesium Hydrox/Alum Hydrox 30 Ml Oral.Susp) 30 ml PO Q6H PRN PRN Reason: Heartburn/Nausea Albuterol Sulfate (Albuterol Sulfate 90 Mcg 8 Gm Inhaler) 2 puff INHALE RQ4H PRN PRN Reason: Shortness of Breath Aripiprazole (Aripiprazole 5 Mg Tablet) 5 mg PO BEDTIME [facility] Last Admin: 02/27/24 20:03 Dose: 5 mg Benztropine Mesylate (Benztropine Mesylate 0.5 Mg Tablet) 0.5 mg PO TID PRN PRN Reason: Extrapyramidal Effects Chlorpromazine HCl (Chlorpromazine Hcl 100 Mg Tablet) 100 mg PO BID PRN PRN Reason: moderate to severe anxiety Last Admin: 09/22/23 09:45 Dose: 100 mg Clonidine HCl (Clonidine Hcl 0.1 Mg Tablet) 0.1 mg PO TID PRN; Protocol PRN Reason: withdrawal Last Admin: 09/09/23 19:43 Dose: 0.1 mg Docusate Sodium (Docusate Sodium 100 Mg Capsule) 100 mg PO BID [facility] Last Admin: 09/22/23 08:45 Dose: 100 mg Fluoxetine HCl (Fluoxetine Hcl 20 Mg Capsule) 40 mg PO DAILY [facility] Last Admin: 09/22/23 08:45 Dose: 40 mg Hydroxyzine HCl (Hydroxyzine Hcl 25 Mg Tablet) 25 mg PO Q6H PRN PRN Reason: Anxiety Last Admin: 09/10/23 20:46 Dose: 25 mg Magnesium Hydroxide (Milk Of Magnesia 30 Ml Oral.Susp) 30 ml PO DAILY PRN PRN Reason: Constipation Last Admin: 09/21/23 11:24 Dose: 30 ml Methadone HCl (Methadone Hcl 20 Mg/2 Ml Oral.Conc) 80 mg PO DAILY [facility] Last Admin: 09/22/23 08:45 Dose: 80 mg Metoprolol Succinate (Metoprolol Succinate Er 25 Mg Tab.Er.24h) 25 mg PO DAILY [facility]; Protocol Last Admin: 09/22/23 08:47 Dose: Not Given Mirtazapine (Mirtazapine 7.5 Mg Tablet) 7.5 mg PO BEDTIME [facility] Last Admin: 09/21/23 20:03 Dose: 7.5 mg Nicotine (Nicotine 21 Mg Patch.Td24) 21 mg TRANSDERMA DAILY [facility] Last Admin: 09/22/23 08:47 Dose: Not Given Pt Own (Atomoxetine (Hcl 40 Mg Capsule)) 40 mg PO DAILY [facility] Last Admin: 09/22/23 08:46 Dose: 40 mg Prazosin HCl (Prazosin Hcl 1 Mg Capsule) 1 mg PO BEDTIME [facility]; Protocol Last Admin: 09/21/23 20:09 Dose: Not Given Trazodone HCl (Trazodone Hcl 50 Mg Tablet) 50 mg PO BEDTIME X1 PRN PRN Reason: Insomnia Last Admin: 09/21/23 20:03 Dose: 50 mg Allergies Allergies Allergy/AdvReac Type Severity Reaction Status Date / Time Penicillins [PCN] Allergy Mild HIVES Verified 01/26/22 11:04 amoxicillin [AMOXICILLIN] Allergy Unknown HIVES Verified 01/26/22 11:04 bee pollen [BEE STINGS] Allergy Unknown SWELLING Verified 01/26/22 11:04 bismuth subsalicylate Allergy Unknown VOMITTING Verified 01/26/22 11:04 [From PEPTO-BISMOL] Assessment & Plan Assessment & Plan (1) Aseptic necrosis of bone of right hip: Status: Acute Code(s): M87.051 - Idiopathic aseptic necrosis of right femur Plan Patient is a 32-year-old female with history of PTSD, polysubstance abuse including opiates, cocaine, amphetamines, Hep C, chronic right hip necrosis who presents with SI plan to jump in front of a car. Patient is having withdrawal symptoms, not wanting to talk much and reticent on approach. However she says she wants to get back on Abilify and Zyprexa to help her back feelings go away. She denies any AVH and mostly just endorses ongoing PTSD symptoms including nightmares for which she agrees to try prazosin. Patient asks if she can rest now talk more tomorrow. Patient asked to be started on methadone. [facility] Chief reviewed medication history and patient said she wants to be back on Abilify though she could only say it could help with PTSD; also asked for Zyprexa which was started as a p.r.n. on the unit, to be increased. Hospital course: 09/03 More talkative interactive today. Still depressed but feeling a little better. Says prazosin it limited nightmares last night. Still in withdrawal but not as bad No hx of manic episodes; no AVH; significant PTSD symptoms including intermittent disssociative episodes Discussed medication history in more detail. Patient wants to get back on remeron which helped w/ insomnia; however she felt it did not adequately address PTSD and after discussing risks/side effects of medication regimens she would like to get on Prozac to which card writer hand agreed. In addition to staying on Abilify albeit lower dose than previously, she asks for Thorazine as a p.r.n.. She says her PTSD/anxiety is typically much worse in the afternoon and says Thorazine has helped in the past. She has been taking p.r.n. Zyprexa which she does not find helpful. 09/06 little better; still very anxious, cravings; increasing prozac and methadone 09/07 continued struggles with anxiety and depression; wants Prozac increased to 40 mg even though this is a quick titration, patient does not want to risk being underdosed (understands risks quick titration). Discussed groups. Patient wants to go but has been struggling with anxiety. Will push herself to attend. -will consider increasing Abilify -will consider Topamax (or baclofen) at some point for cocaine cravings (no hx of glaucoma, kidney stone) 09/08 patient remains improving, attending groups, in good behavior and impulse control, and appropriate with peers and staff. Feels that her mood is getting little better. Anxiety a little less. Still PTSD flashbacks but she finds she is able to cope right now. Very hopeful about getting into a program. Still lot of cravings for opiates and feeling some withdrawal 09/09 EKG/QTC WNL; will continue to titrate Haldol; patient remains engaged in treatment, getting along well with others. Again discussed metoprolol which she says she did not get yesterday but has been on in the past and wants to get back on it for daytime anxiety 09/10 doing well; friendly, engaged in treatment, insightful...making good use of resources available to her on the unit. Very much wants a program and sobriety. Feels good about current med regimen. Sleeping and eating well. Since medication changes made, patients mood and anxiety remain improved and card writer hand agrees that patient is stable on current me2/09/11: Continue current regimen and plans regimen. 09/12: Continue current regimen and plans 09/13: continue current regimen and plans 09/14: Continue tx. 09/16: Will continue with plan to begin Strattera. 09/17/23 Stratters 40 mg initiated today. 09/18: Continue current management and treatment plan. 09/19: Continue current management and treatment plan. 09/22: Discharge Plan: CV Q 15 minute checks Start metoprolol ER 25 mg daily Continue Prozac 40mg daily for ptsd/depression Continue Remeron 7.5mg qhs for insomnia/depression Continue Abilify 5 mg q.h.s. Continue Thorazine 100mg daily prn for mod-severe anxiety continue prazosin 1 mg q.h.s. for nightmares Increase Methadone to 70mg (continue to titrate) Patient aware of chronic right hip necrosis which she says has been going on for over a year; says she knows she needs a hip replacement XR/XR hip RT w PEL1V FINDINGS: End-stage right hip, with marked sclerosis and destruction of the right femoral head again observed. Acetabular protrusio again observed. No acute findings. Left hip intact as is the pelvis. IMPRESSION:End-stage right hip. No substantial change. XR/XR knee RT 4V FINDINGS:Diffuse osteopenia but no fracture or destructive process. No joint effusion. Joint spaces appear well preserved. No erosions. IMPRESSION: Unremarkable study past med trials recorded: Abilify 20 mg Depakote ER 250 mg Mirtazapine 7.5 mg Prazosin 1 mg q.h.s. Sumatriptan 50 mgTrazodone 100 mg Informed Consent: understands Reason for continued inpatient stay Substantial Risk for: stable for discharge Time Spent With Patient Time: Total time managing care of this patient today ____ minutes.
[2023-09-22 17:51] VITALS: BP 99/54; PULSE 96; TEMP 2.3; TEMP 36.2; O2SAT 97
[2023-09-22] MEDS: ARIPiprazole 5 MG TABLET PO (20:07)
[2023-09-22] MEDS: Mirtazapine 7.5 MG TABLET PO (20:07)
[2023-09-22] MEDS: traZODone HCL 50 MG TABLET PO (20:08)
[2023-09-23 06:00] VITALS: RESP 18
[2023-09-23 07:00] VITALS: BMI 27.5
[2023-09-23] MEDS: methADONE HCl 20 MG/2 ML ORAL.CONC 80 MG PO (08:46)
[2023-09-23] MEDS: FLUoxetine HCl 20 MG CAPSULE 40 MG PO (08:46)
[2023-09-23] MEDS: Docusate Sodium 100 MG CAPSULE PO (08:47)
[2023-09-23] MEDS: chlorproMAZINE HCl 100 MG TABLET PO ×2 (11:10→13:34)
[2023-09-23 18:00] VITALS: RESP 16
--- NOTE | 2023-09-23 18:52 | P.PNPSI_ITS ---
Subjective Subjective Date of Service: 09/23/23 Reason For Visit: Depression/SI, opiate use disorder, polysubstance Subjective Notes: Conditional Voluntary Healthcare Proxy: No Guardianship: No Medical Problems Affecting Mental Status: No Interim History: Preparing for transfer for [facility]. Review of meds, doses, prescriptions. Pt apprehensive, but prepared to take the next step for ongoing recovery. Medication Compliance: Yes Side effects from medications: No Attending Groups: No Review of Systems Acute medical concerns: No Medical Review of Systems: unchanged Review of Systems Review of Systems Yes all other systems are reviewed and are negative Mental Status Exam Mental Status Exam Patient Appearance: Appropriate Patient Orientation: Person, Place, Time and Situation Level of Consciousness: Alert Patient Behavior: Talkative and Good Eye Contact Mood Description: Apprehensive Affect Description: Apprehensive Patient Cognition Impaired: No Ability to Follow Directions: Good Speech Pattern: Spontaneous Speech Memory Description: Intact Hallucinations: None Delusions: Not Present Thought Content: positive for Perseveration, positive for Suicidal Ideation (denies) and positive for Homicidal Ideation (denies) Depressive Symptoms: Thoughts of /Suicide (denies) and Low Self Esteem Judgement: Good Diagnostics Vital Signs (24Hr): Vital Signs - 24 hr 09/23/23 06:00 Respiratory Rate 18 BMI result Body Mass Index 27.5 Labs 09/01/23 09:44 09/01/23 09:44 Imaging Radiology Impressions: ITS Impressions Hip/Pelvis X-Ray 09/01/23 08:13 IMPRESSION: End-stage right hip. No substantial change. Knee X-Ray 09/01/23 08:13 IMPRESSION: Unremarkable study. Medications Medications Current Medications Acetaminophen (Acetaminophen 325 Mg Tablet) 650 mg PO Q6H PRN PRN Reason: Headache/Pain Mild Scale (1-3) Last Admin: 09/01/23 19:37 Dose: 650 mg Al Hydroxide/Mg Hydroxide (Magnesium Hydrox/Alum Hydrox 30 Ml Oral.Susp) 30 ml PO Q6H PRN PRN Reason: Heartburn/Nausea Albuterol Sulfate (Albuterol Sulfate 90 Mcg 8 Gm Inhaler) 2 puff INHALE RQ4H PRN PRN Reason: Shortness of Breath Aripiprazole (Aripiprazole 5 Mg Tablet) 5 mg PO BEDTIME KAITY Last Admin: 09/22/23 20:07 Dose: 5 mg Benztropine Mesylate (Benztropine Mesylate 0.5 Mg Tablet) 0.5 mg PO TID PRN PRN Reason: Extrapyramidal Effects Chlorpromazine HCl (Chlorpromazine Hcl 100 Mg Tablet) 100 mg PO BID PRN PRN Reason: moderate to severe anxiety Last Admin: 09/23/23 13:34 Dose: 100 mg Clonidine HCl (Clonidine Hcl 0.1 Mg Tablet) 0.1 mg PO TID PRN; Protocol PRN Reason: withdrawal Last Admin: 09/09/23 19:43 Dose: 0.1 mg Docusate Sodium (Docusate Sodium 100 Mg Capsule) 100 mg PO BID [facility] Last Admin: 09/23/23 08:47 Dose: 100 mg Fluoxetine HCl (Fluoxetine Hcl 20 Mg Capsule) 40 mg PO DAILY [facility] Last Admin: 09/23/23 08:46 Dose: 40 mg Hydroxyzine HCl (Hydroxyzine Hcl 25 Mg Tablet) 25 mg PO Q6H PRN PRN Reason: Anxiety Last Admin: 09/10/23 20:46 Dose: 25 mg Magnesium Hydroxide (Milk Of Magnesia 30 Ml Oral.Susp) 30 ml PO DAILY PRN PRN Reason: Constipation Last Admin: 09/21/23 11:24 Dose: 30 ml Methadone HCl (Methadone Hcl 20 Mg/2 Ml Oral.Conc) 80 mg PO DAILY [facility] Last Admin: 09/23/23 08:46 Dose: 80 mg Metoprolol Succinate (Metoprolol Succinate Er 25 Mg Tab.Er.24h) 25 mg PO DAILY [facility]; Protocol Last Admin: 09/23/23 08:47 Dose: Not Given Mirtazapine (Mirtazapine 7.5 Mg Tablet) 7.5 mg PO BEDTIME KAITY Last Admin: 09/22/23 20:07 Dose: 7.5 mg Nicotine (Nicotine 21 Mg Patch.Td24) 21 mg TRANSDERMA DAILY [facility] Last Admin: 09/23/23 09:01 Dose: Not Given Pt Own (Atomoxetine (Hcl 40 Mg Capsule)) 40 mg PO DAILY [facility] Last Admin: 09/23/23 08:46 Dose: 40 mg Prazosin HCl (Prazosin Hcl 1 Mg Capsule) 1 mg PO BEDTIME [facility]; Protocol Last Admin: 09/22/23 20:47 Dose: Not Given Trazodone HCl (Trazodone Hcl 50 Mg Tablet) 50 mg PO BEDTIME MRX1 PRN PRN Reason: Insomnia Last Admin: 09/22/23 20:08 Dose: 50 mg Allergies Allergies Allergy/AdvReac Type Severity Reaction Status Date / Time Penicillins [PCN] Allergy Mild HIVES Verified 01/26/22 11:04 amoxicillin [AMOXICILLIN] Allergy Unknown HIVES Verified 01/26/22 11:04 bee pollen [BEE STINGS] Allergy Unknown SWELLING Verified 01/26/22 11:04 bismuth subsalicylate Allergy Unknown VOMITTING Verified 01/26/22 11:04 [From PEPTO-BISMOL] Assessment & Plan Assessment & Plan (1) Aseptic necrosis of bone of right hip: Status: Acute Code(s): M87.051 - Idiopathic aseptic necrosis of right femur Plan Patient is a 32-year-old female with history of PTSD, polysubstance abuse including opiates, cocaine, amphetamines, Hep C, chronic right hip necrosis who presents with SI plan to jump in front of a car. Patient is having withdrawal symptoms, not wanting to talk much and reticent on approach. However she says she wants to get back on Abilify and Zyprexa to help her back feelings go away. She denies any AVH and mostly just endorses ongoing PTSD symptoms including nightmares for which she agrees to try prazosin. Patient asks if she can rest now talk more tomorrow. Patient asked to be started on methadone. Food Technician reviewed medication history and patient said she wants to be back on Abilify though she could only say it could help with PTSD; also asked for Zyprexa which was started as a p.r.n. on the unit, to be increased. Hospital course: 09/03 More talkative interactive today. Still depressed but feeling a little better. Says prazosin it limited nightmares last night. Still in withdrawal but not as bad No hx of manic episodes; no AVH; significant PTSD symptoms including intermittent disssociative episodes Discussed medication history in more detail. Patient wants to get back on remeron which helped w/ insomnia; however she felt it did not adequately address PTSD and after discussing risks/side effects of medication regimens she would like to get on Prozac to which aligner typewriter agreed. In addition to staying on Abilify albeit lower dose than previously, she asks for Thorazine as a p.r.n.. She says her PTSD/anxiety is typically much worse in the afternoon and says Thorazine has helped in the past. She has been taking p.r.n. Zyprexa which she does not find helpful. 09/06 little better; still very anxious, cravings; increasing prozac and methadone 09/07 continued struggles with anxiety and depression; wants Prozac increased to 40 mg even though this is a quick titration, patient does not want to risk being underdosed (understands risks quick titration). Discussed groups. Patient wants to go but has been struggling with anxiety. Will push herself to attend. -will consider increasing Abilify -will consider Topamax (or baclofen) at some point for cocaine cravings (no hx of glaucoma, kidney stone) 09/08 patient remains improving, attending groups, in good behavior and impulse control, and appropriate with peers and staff. Feels that her mood is getting little better. Anxiety a little less. Still PTSD flashbacks but she finds she is able to cope right now. Very hopeful about getting into a program. Still lot of cravings for opiates and feeling some withdrawal 09/09 EKG/QTC WNL; will continue to titrate Haldol; patient remains engaged in treatment, getting along well with others. Again discussed metoprolol which she says she did not get yesterday but has been on in the past and wants to get back on it for daytime anxiety 09/10 doing well; friendly, engaged in treatment, insightful...making good use of resources available to her on the unit. Very much wants a program and sobriety. Feels good about current med regimen. Sleeping and eating well. Since medication changes made, patients mood and anxiety remain improved and aligner typewriter agrees that patient is stable on current me2/09/11: Continue current regimen and plans regimen. 09/12: Continue current regimen and plans 09/13: continue current regimen and plans 09/14: Continue tx. 09/16: Will continue with plan to begin Strattera. 09/17/23 Stratters 40 mg initiated today. 09/18: Continue current management and treatment plan. 09/19: Continue current management and treatment plan. 09/22: Discharge : Discharge 09/23 to [facility] Plan: CV Q 15 minute checks Start metoprolol ER 25 mg daily Continue Prozac 40mg daily for ptsd/depression Continue Remeron 7.5mg qhs for insomnia/depression Continue Abilify 5 mg q.h.s. Continue Thorazine 100mg daily prn for mod-severe anxiety continue prazosin 1 mg q.h.s. for nightmares Increase Methadone to 70mg (continue to titrate) Patient aware of chronic right hip necrosis which she says has been going on for over a year; says she knows she needs a hip replacement XR/XR hip RT w PEL1V FINDINGS: End-stage right hip, with marked sclerosis and destruction of the right femoral head again observed. Acetabular protrusio again observed. No acute findings. Left hip intact as is the pelvis. IMPRESSION:End-stage right hip. No substantial change. XR/XR knee RT 4V FINDINGS:Diffuse osteopenia but no fracture or destructive process. No joint effusion. Joint spaces appear well preserved. No erosions. IMPRESSION: Unremarkable study past med trials recorded: Abilify 20 mg Depakote ER 250 mg Mirtazapine 7.5 mg Prazosin 1 mg q.h.s. Sumatriptan 50 mgTrazodone 100 mg Patient educated on: medication risk/benefits and therapeutic strategies Informed Consent: understands Reason for continued inpatient stay Substantial Risk for: stable for discharge Time Spent With Patient Time: Total time managing care of this patient today ____ minutes.
[2023-09-23] MEDS: traZODone HCL 50 MG TABLET PO (20:42)
[2023-09-23] MEDS: Mirtazapine 7.5 MG TABLET PO (20:42)
[2023-09-23] MEDS: ARIPiprazole 5 MG TABLET PO (20:42)
[2023-09-24 07:00] VITALS: RESP 18
[2023-09-24] MEDS: methADONE HCl 20 MG/2 ML ORAL.CONC 80 MG PO (08:32)
[2023-09-24] MEDS: Docusate Sodium 100 MG CAPSULE PO (08:33)
[2023-09-24] MEDS: FLUoxetine HCl 20 MG CAPSULE 40 MG PO (08:33)
--- NOTE | 2023-09-24 13:07 | P.DS_ITS ---
DS: Providers Provider Date of Service: 09/24/23 Date of admission: 09/01/23 14:06 Date of discharge: 09/24/23 Primary care physician: None Physician Admitting clinician: Tin Lane Attending physician on admission: Tin Lane Consults: 09/01/23 14:13 Consult to Orthopedics Routine Consulting Provider: [facility] Reason for consultation: necrotic hip Has provider been notified: No 09/01/23 14:14 Addiction Medicine Routine Consulting Provider: Addiction Covering Reason for consultation: opiate, polysubstance use, ? suboxone, methadone Attending physician on discharge: Matthias Contreras Discharging clinician: Emma Boudreaux DS: Diagnosis Discharge Diagnosis (1) Aseptic necrosis of bone of right hip: Status: Acute DS: Medications Discharge Medications Home Medications: Previous Rx's Medication Instructions Recorded Strattera 40 mg PO DAILY #14 tabs 09/21/23 aripiprazole 5 mg tablet (Abilify) 5 mg PO BEDTIME #14 tabs 09/21/23 aripiprazole 5 mg tablet (Abilify) 5 mg PO DAILY #30 tabs 09/21/23 atomoxetine 40 mg capsule 40 mg PO DAILY #30 caps 09/21/23 (Strattera) chlorpromazine 100 mg tablet 100 mg PO BID #60 tabs 09/21/23 chlorpromazine 100 mg tablet 100 mg PO BID PRN moderate to 09/21/23 severe anxiety #28 tabs clonidine HCl 0.1 mg tablet 0.1 mg PO TID PRN anxiety #90 tabs 09/21/23 clonidine HCl 0.1 mg tablet 0.1 mg PO TID PRN withdrawal #44 09/21/23 tabs fluoxetine 20 mg capsule 40 mg (2 x 20 mg) PO DAILY #28 caps 09/21/23 fluoxetine 40 mg capsule (Prozac) 40 mg PO DAILY #30 caps 09/21/23 hydroxyzine HCl 25 mg tablet 25 mg PO Q6H PRN Anxiety #28 tabs 09/21/23 hydroxyzine HCl 25 mg tablet 25 mg PO QID PRN anxiety #120 tabs 09/21/23 methadone 10 mg/mL oral 80 mg (8 mL) PO DAILY #0 mL 09/21/23 concentrate (Methadose) metoprolol succinate 25 mg 25 mg PO DAILY #14 tabs 09/21/23 tablet,extended release 24 hr metoprolol tartrate 25 mg tablet 25 mg PO DAILY #30 tabs 09/21/23 mirtazapine 7.5 mg tablet 7.5 mg PO BEDTIME #14 tabs 09/21/23 mirtazapine 7.5 mg tablet 7.5 mg PO BEDTIME #30 tabs 09/21/23 prazosin 1 mg capsule 1 mg PO BEDTIME #14 caps 09/21/23 prazosin 1 mg capsule 1 mg PO BEDTIME #30 caps 09/21/23 trazodone 50 mg tablet 50 mg PO BEDTIME #60 tabs 09/21/23 trazodone 50 mg tablet 50 mg PO BEDTIME MRX1 PRN Insomnia 09/21/23 #28 tabs atomoxetine 40 mg capsule 40 mg PO DAILY #30 caps 09/22/23 (Strattera) cane #1 ea 09/22/23 Mental Status Exam Mental Status Exam Patient Appearance: Appropriate Patient Orientation: Person, Place, Time and Situation Level of Consciousness: Alert Patient Behavior: Talkative and Good Eye Contact Mood Description: Apprehensive Affect Description: Apprehensive Patient Cognition Impaired: No Ability to Follow Directions: Good Speech Pattern: Spontaneous Speech Memory Description: Intact Hallucinations: None Delusions: Not Present Thought Content: positive for Perseveration, positive for Suicidal Ideation (denies) and positive for Homicidal Ideation (denies) Depressive Symptoms: Thoughts of /Suicide (denies) and Low Self Esteem Judgement: Good Data Imaging Diagnostic Imaging Impressions Hip/Pelvis X-Ray 09/01/23 08:13 IMPRESSION: End-stage right hip. No substantial change. Knee X-Ray 09/01/23 08:13 IMPRESSION: Unremarkable study. DS: Summary Hospital Course Hospital Course: Admission to adult psychiatry for exacerbation of PTSD, Depression, Polysubstance Use Disorder. Pt reported SI with plan, was in withdrawal as well. Medications were evaluated , restarted and adjusted. Methadone was re-started. Pt was interested in ongoing treatment. An extensive search was completed and she will attend [facility] for ongoing residential addiction tr eatment. Status at Discharge Functional status at discharge: independent ambulation Overall status at discharge: patient is back to baseline Time Spent with Patient Time attestation: Total time managing care of this patient today ____ minutes. Time spent: Less than 30 minutes Discharge Plan Discharge Anticipated Discharge Date/Time: 09/22/23 12:00 Patient Disposition: Xfer Inpatient Rehab Fac Discharge Diagnosis: PTSD Major Depression Amphetamine, Cocaine, Opiate Use Disorder Aseptic Necrosis R Hip Referrals: [place]) [Other] - 1 Week (Referral for [facility] co-occurring substance abuse/mental health treatment program. Patient should follow-up on referral after completing [facility] at [facility] placement for reconsideration of admission to program per front office coordinator at [facility] program.) [facility] [Other] - 09/24/23 11:00 am (Patient accepted for admission to [facility] for substance abuse treatment.) [facility] OT Clinic: Medication Assisted Treatment (MAT) [Other] - Tomorrow (Patient established for MAT services Patient will present to Methadone Clinic for dosing while at [facility].) [facility] [Other] - 1 Week (Walk in primary care if needed ) [facility] [Provider Group] - 2 days Discharge Medications: New clonidine HCl 0.1 mg Tablet 0.1 mg PO TID PRN (Reason: withdrawal) Qty: 44 0RF Protocol: Hold for SBP< HOLD for SBP < : 90 trazodone 50 mg Tablet 50 mg PO BEDTIME MRX1 PRN (Reason: Insomnia) Qty: 28 0RF chlorpromazine 100 mg Tablet 100 mg PO BID PRN (Reason: moderate to severe anxiety) Qty: 28 0RF prazosin 1 mg Capsule 1 mg PO BEDTIME Qty: 14 0RF Protocol: Hold for SBP< HOLD for SBP < : 90 hydroxyzine HCl 25 mg Tablet 25 mg PO Q6H PRN (Reason: Anxiety) Qty: 28 0RF methadone [Methadose] 10 mg/mL Concentrate 80 mg PO DAILY Qty: 0 0RF Rx Instructions: Partial Fill upon patient request. metoprolol succinate 25 mg Tablet Extended Release 24 Hr 25 mg PO DAILY Qty: 14 0RF Protocol: Hold for SBP/HR < HOLD for SBP < : 90 HOLD for HR < : 60 fluoxetine 20 mg Capsule 40 mg PO DAILY Qty: 28 0RF aripiprazole [Abilify] 5 mg Tablet 5 mg PO BEDTIME Qty: 14 0RF mirtazapine 7.5 mg Tablet 7.5 mg PO BEDTIME Qty: 14 0RF Strattera 40 mg PO DAILY Qty: 14 0RF aripiprazole [Abilify] 5 mg tablet 5 mg PO DAILY Qty: 30 0RF chlorpromazine 100 mg tablet 100 mg PO BID Qty: 60 0RF clonidine HCl 0.1 mg tablet 0.1 mg PO TID PRN (Reason: anxiety) Qty: 90 0RF fluoxetine [Prozac] 40 mg capsule 40 mg PO DAILY Qty: 30 0RF hydroxyzine HCl 25 mg tablet 25 mg PO QID PRN (Reason: anxiety) Qty: 120 0RF metoprolol tartrate 25 mg tablet 25 mg PO DAILY Qty: 30 0RF mirtazapine 7.5 mg tablet 7.5 mg PO BEDTIME Qty: 30 0RF prazosin 1 mg capsule 1 mg PO BEDTIME Qty: 30 0RF trazodone 50 mg tablet 50 mg PO BEDTIME Qty: 60 0RF atomoxetine [Strattera] 40 mg capsule 40 mg PO DAILY Qty: 30 0RF (DME) cane Device See Rx Instructions .Route Qty: 1 0RF Rx Instructions: As directed atomoxetine [Strattera] 40 mg capsule 40 mg PO DAILY Qty: 30 0RF Discharge Orders: Discharge Order (Routine); Ordered 09/24/23 Ordered By: Emma Boudreaux Diet: Advance to usual diet Activity on Discharge: As tolerated Stand Alone Forms: Patient Portal Discharge page, Community Support Care Plan Goals: Mood and Behavioral Stabilization Work on Sobriety Health Concerns: Mood and Behavioral Stabilization Work on Sobriety Plan of Treatment: Attend [facility] Take medications as directed Assessment: Pt interviewed prior to discharge and found to be fully oriented and without SI/HI. Pt has insight and demonstrates good judgment in terms of wanting to pursue treatment. Pt is not in imminent risk of harm to self or others and has a safety plan that includes presenting to the closest ER or calling 911 if feeling unsafe. Pt has been observed closely by nursing and unit staff throughout admission. Pt has not engaged in any behaviors that suggest dangerousness to self or others and has demonstrated appropriate behaviors and impulse control. Discharge Date/Time: 09/24/23 09:55
== END 2023-09-24 09:55 | DRG 754 ==
LOC: HO.ED 11:11 → HO.PM5 14:22 → HO.S3 09-02 21:27 → HO.PM5 09-02 21:30
PROVIDERS: Physician Assistant; Admitting Provider Clinical Nurse Specialist Psychiatric/Mental Health, Adult; Emergency Provider Emergency Medicine; Visit Provider Clinical Nurse Specialist Psychiatric/Mental Health, Adult
DX: F32.9 Major depressive disorder, single episode, unspecified (principal); R45.851 Suicidal ideations; M87.051 Idiopathic aseptic necrosis of right femur; F43.10 Post-traumatic stress disorder, unspecified; F15.20 Other stimulant dependence, uncomplicated; F11.20 Opioid dependence, uncomplicated; F14.10 Cocaine abuse, uncomplicated; F17.210 Nicotine dependence, cigarettes, uncomplicated; Z20.822 Contact with and (suspected) exposure to COVID-19; Z71.6 Tobacco abuse counseling; Z59.02 Unsheltered homelessness; Z79.899 Other long term (current) drug therapy
CPT/HCPCS: 36415; 73502; 73564; 80053; 80307; 81003; 83735; 85025; 87635; 93005; 99284; 99499; S9485

== ENCOUNTER → 2023-09-01 12:06 | Outpatient (BNV) | payer OTHER, SELFPAY | PROVIDERS: Admitting Provider Clinical Nurse Specialist Psychiatric/Mental Health, Adult; Emergency Provider Emergency Medicine; Visit Provider Internal Medicine | DX: R45.851 Suicidal ideations (principal); F19.10 Other psychoactive substance abuse, uncomplicated | CPT/HCPCS: 93010 ==

== ENCOUNTER 2023-09-01 14:06 | Outpatient (BNV) | payer OTHER, SELFPAY | END 2023-09-07 14:47 | PROVIDERS: Admitting Provider Clinical Nurse Specialist Psychiatric/Mental Health, Adult; Emergency Provider Emergency Medicine; Visit Provider Internal Medicine Cardiovascular Disease | DX: R00.0 Tachycardia, unspecified (principal) | CPT/HCPCS: 93010 ==

== ENCOUNTER → 2023-09-01 14:06 | Outpatient (BNV) | payer OTHER, SELFPAY | PROVIDERS: Admitting Provider Clinical Nurse Specialist Psychiatric/Mental Health, Adult; Emergency Provider Emergency Medicine; Visit Provider Psychiatry & Neurology Psychiatry | DX: F33.2 Major depressive disorder, recurrent severe without psychotic features (principal); F43.11 Post-traumatic stress disorder, acute; M87.051 Idiopathic aseptic necrosis of right femur | CPT/HCPCS: 99231; 99232; 99499 ==

== ENCOUNTER 2024-03-02 13:54 | Emergency (ER) | payer OTHER, SELFPAY ==
[2024-03-02 14:16] VITALS: BP 124/67; BP 138/78; PULSE 108; PULSE 93; RESP 16; TEMP 37; O2SAT 98; BMI 26.4
--- NOTE | 2024-03-02 14:22 | ED.FALL ---
HPI - Fall General Chief Complaint: Fall Stated Complaint: KNEE PAIN FALL DOWNSTAIRS Time Seen by Provider: 03/02/24 14:11 Source: patient, EMS and old records reviewed Mode of arrival: EMS Limitations: no limitations History of Present Illness ED Provider: Joyce Keyes PA-C HPI Narrative: 33 yo female with history of polysubstance use disorder, PTSD, depression, history aseptic necrosis of the right hip who presents to the ER from EMS after she slipped and fell down 6 metal stairs, falling onto her right side resulting in pain in the right hip and right knee. She denies hitting her head or losing consciousness. She reports pain in the right hip that is worse than usual but she is able to walk on it. She states she needs a hip replacement w/ [facility] but she has not made an appointment to do so yet. She reports ongoing drug use, heroin/fentanyl/cocaine/marijuana and ETOH. she is interested in detox. asking for food on arrival. she reports homelessness MD complaint: fall Onset (ago): minute(s) Fall from: standing Fall witnessed: yes, by bystander Place fall occurred: other ([facility]) Loss of consciousness: none Prolonged down time: no Symptoms prior to fall: none Context: tripped/slipped Location of injury: pelvis Location of injury - extremities: right: knee Severity: severe Severity scale (1-10): 10 Associated symptoms (after fall): denies Related Data Previous Rx's ?Medication ?Instructions ?Recorded Strattera 40 mg PO DAILY #14 tabs 09/21/23 aripiprazole 5 mg tablet (Abilify) 5 mg PO BEDTIME #14 tabs 09/21/23 aripiprazole 5 mg tablet (Abilify) 5 mg PO DAILY #30 tabs 09/21/23 atomoxetine 40 mg capsule 40 mg PO DAILY #30 caps 09/21/23 (Strattera) chlorpromazine 100 mg tablet 100 mg PO BID #60 tabs 09/21/23 chlorpromazine 100 mg tablet 100 mg PO BID PRN moderate to 09/21/23 severe anxiety #28 tabs clonidine HCl 0.1 mg tablet 0.1 mg PO TID PRN anxiety #90 tabs 09/21/23 clonidine HCl 0.1 mg tablet 0.1 mg PO TID PRN withdrawal #44 09/21/23 tabs fluoxetine 20 mg capsule 40 mg (2 x 20 mg) PO DAILY #28 caps 09/21/23 fluoxetine 40 mg capsule (Prozac) 40 mg PO DAILY #30 caps 09/21/23 hydroxyzine HCl 25 mg tablet 25 mg PO Q6H PRN Anxiety #28 tabs 09/21/23 hydroxyzine HCl 25 mg tablet 25 mg PO QID PRN anxiety #120 tabs 09/21/23 methadone 10 mg/mL oral 80 mg (8 mL) PO DAILY #0 mL 09/21/23 concentrate (Methadose) metoprolol succinate 25 mg 25 mg PO DAILY #14 tabs 09/21/23 tablet,extended release 24 hr metoprolol tartrate 25 mg tablet 25 mg PO DAILY #30 tabs 09/21/23 mirtazapine 7.5 mg tablet 7.5 mg PO BEDTIME #14 tabs 09/21/23 mirtazapine 7.5 mg tablet 7.5 mg PO BEDTIME #30 tabs 09/21/23 prazosin 1 mg capsule 1 mg PO BEDTIME #14 caps 09/21/23 prazosin 1 mg capsule 1 mg PO BEDTIME #30 caps 09/21/23 trazodone 50 mg tablet 50 mg PO BEDTIME #60 tabs 09/21/23 trazodone 50 mg tablet 50 mg PO BEDTIME MRX1 PRN Insomnia 09/21/23 #28 tabs atomoxetine 40 mg capsule 40 mg PO DAILY #30 caps 09/22/23 (Strattera) cane #1 ea 09/22/23 Allergies Allergy/AdvReac Type Severity Reaction Status Date / Time Penicillins [PCN] Allergy Mild HIVES Verified 03/02/24 14:18 amoxicillin [AMOXICILLIN] Allergy Unknown HIVES Verified 03/02/24 14:18 bee pollen [BEE STINGS] Allergy Unknown SWELLING Verified 03/02/24 14:18 bismuth subsalicylate Allergy Unknown VOMITTING Verified 03/02/24 14:18 [From PEPTO-BISMOL] Review of Systems Review of Systems: Yes all other systems are reviewed and are negative PMFSH Past Medical History Medical History (Updated 03/02/24 @ 14:46 by ROBYN Hernandez) Knee pain Acute right hip pain Cocaine use disorder Opioid use disorder Aseptic necrosis of bone of right hip PTSD (post-traumatic stress disorder) Overdose Polysubstance abuse Social History Social History Household Members: Unknown / Unable to assess Housing: Homeless Do you presently have visiting nurse or other home services: No Unable to assess alcohol history related to: Unknown Alcohol intake: unknown Patient Tobacco Use Status: Current everyday Tobacco user Tobacco use type: Cigarette Cigarettes Per Day: 10 Years Smoked: unknown e-Cigarette/Vaping Use: Never Used Substance Use Type: Amphetamines, Crack/Cocaine, Opiates and Other Advance Directives: No Advance Directives Information Provided: Yes Do you have a plan to hurt others: No Plan service: No Sexual orientation: Straight/Heterosexual Physical Exam Vital Signs: Vital Signs: Last Vital Signs Temp 98.6 F 03/02/24 14:51 Pulse 93 03/02/24 14:51 Resp 16 03/02/24 14:51 BP 124/67 03/02/24 14:51 Pulse Ox 98 03/02/24 14:51 O2 Del Method Room Air 03/02/24 14:51 BMI result Body Mass Index 26.4 Appearance: Alert. Oriented X3. disheveled and foul smelling Head: normocephalic, atraumatic. Eyes: Pupils equal, round and reactive to light. ENT: Pharynx normal. No tonsillar swelling or exudate. Neck: Normal inspection. Neck supple. no midline tenderness CVS: Normal heart rate and rhythm. Pulses normal. Respiratory: No respiratory distress. Breath sounds normal. Abdomen: Soft and nontender. +BS x4 Skin: Skin warm and dry. Normal skin color. Normal skin turgor. No rashes. Extremities: No lower extremity edema. No joint swelling. tender right lateral hip with limited flexion due to pain. nontender right knee with FROM, unable to assess joint laxity given hip pain Neuro/psych: Oriented X 3. No motor deficit. No sensory deficit. CN II-XII intact. Normal speech and cognition. ambulatory w/ limping gait Medical Decision Making Medical Decision Making MDM Narrative: 33-year-old female with history of polysubstance use, alcohol use, PTSD and depression, currently homeless who presents to the ER for evaluation of right hip pain and right knee pain after she slipped and fell [facility], falling down 6 stairs on her right side. She not hit her head or lose consciousness. She reports significant pain in the right hip which is acute on chronic. She states she needs a hip replacement. The hip is tender with limited range of motion. Unable to fully evaluate the knee due to the hip pain. Images were ordered however patient refused imaging after eating 4 puddings. She states her aunt want her to baby-sit and maneuver is here to take her home. She was encouraged to stay for imaging and detox evaluation however she declined. Encouraged come back to the ER for imaging if she wishes. Stable for discharge Differential Diagnosis Differential Diagnoses: The differential diagnosis associated with the presentation includes Acute hip fracture, hip contusion, knee sprain, knee strain, ligamentous injury, thigh contusion, polysubstance use Independent Historian Clinical information obtained from an independent historian. History obtained from or confirmed by: EMS External Record Review External record reviewed: Outpatient record, Prior outpatient labs and Prior outpatient radiology Tests considered The following testing was considered but not selected: xr knee and hip Prescription Management I considered prescription management with: Pain Medication Chronic Conditions Patient?s care impacted by: Other Social Determinants Patient?s care significantly limited by Social Determinants of Health including: Inadequate housing and Alcoholism and drug addiction in family Critical Care Time Critical Care Time Critical Care Time: No Discharge Plan Discharge Clinical Impression: Hip pain Qualifiers: Laterality: right Qualified Code(s): M25.551 - Pain in right hip Acute knee pain Qualifiers: Laterality: right Qualified Code(s): M25.561 - Pain in right knee Patient Disposition: Home, Self-Care Additional Instructions: it was recommended you stay for imaging but you refused. come back to the ER if you would like x-rays or detox If you develop new or worsening symptoms call 911 or come back to the ER for further evaluation. Prescriptions: No Action clonidine HCl 0.1 mg Tablet 0.1 mg PO TID PRN (Reason: withdrawal) Qty: 44 0RF Protocol: Hold for SBP< HOLD for SBP < : 90 trazodone 50 mg Tablet 50 mg PO BEDTIME MRX1 PRN (Reason: Insomnia) Qty: 28 0RF chlorpromazine 100 mg Tablet 100 mg PO BID PRN (Reason: moderate to severe anxiety) Qty: 28 0RF prazosin 1 mg Capsule 1 mg PO BEDTIME Qty: 14 0RF Protocol: Hold for SBP< HOLD for SBP < : 90 hydroxyzine HCl 25 mg Tablet 25 mg PO Q6H PRN (Reason: Anxiety) Qty: 28 0RF methadone [Methadose] 10 mg/mL Concentrate 80 mg PO DAILY Qty: 0 0RF Rx Instructions: Partial Fill upon patient request. metoprolol succinate 25 mg Tablet Extended Release 24 Hr 25 mg PO DAILY Qty: 14 0RF Protocol: Hold for SBP/HR < HOLD for SBP < : 90 HOLD for HR < : 60 fluoxetine 20 mg Capsule 40 mg PO DAILY Qty: 28 0RF aripiprazole [Abilify] 5 mg Tablet 5 mg PO BEDTIME Qty: 14 0RF mirtazapine 7.5 mg Tablet 7.5 mg PO BEDTIME Qty: 14 0RF Strattera 40 mg PO DAILY Qty: 14 0RF aripiprazole [Abilify] 5 mg tablet 5 mg PO DAILY Qty: 30 0RF chlorpromazine 100 mg tablet 100 mg PO BID Qty: 60 0RF clonidine HCl 0.1 mg tablet 0.1 mg PO TID PRN (Reason: anxiety) Qty: 90 0RF fluoxetine [Prozac] 40 mg capsule 40 mg PO DAILY Qty: 30 0RF hydroxyzine HCl 25 mg tablet 25 mg PO QID PRN (Reason: anxiety) Qty: 120 0RF metoprolol tartrate 25 mg tablet 25 mg PO DAILY Qty: 30 0RF mirtazapine 7.5 mg tablet 7.5 mg PO BEDTIME Qty: 30 0RF prazosin 1 mg capsule 1 mg PO BEDTIME Qty: 30 0RF trazodone 50 mg tablet 50 mg PO BEDTIME Qty: 60 0RF atomoxetine [Strattera] 40 mg capsule 40 mg PO DAILY Qty: 30 0RF (DME) cane Device See Rx Instructions .Route Qty: 1 0RF Rx Instructions: As directed atomoxetine [Strattera] 40 mg capsule 40 mg PO DAILY Qty: 30 0RF Interventions: ED Discharge Assessment Last Done: 03/02/24 14:51 Discharge Date/Time: 03/02/24 14:52 Print Language: Com[place]an
--- NOTE | 2024-03-02 14:49 | PC.NURSE ---
this nurse was informed by ROBYN ryder pt refusing imaging wishes to be discharged- pt left prior dc paperwork- no IV in place
[2024-03-02 14:51] VITALS: BP 124/67; PULSE 93; RESP 16; TEMP 37; O2SAT 98
== END 2024-03-02 14:52 | disposition home or self-care (01) ==
PROVIDERS: Emergency Provider Student in an Organized Health Care Education/Training Program
DX: M25.551 Pain in right hip (principal); M25.561 Pain in right knee; Z91.81 History of falling
CPT/HCPCS: 99282